=== PATIENT | male | born 1945 | race Hispanic/Latino ===

== ENCOUNTER 2022-05-10 14:40 | Inpatient (IN) | payer OTHER ==
--- OUTSIDE RECORDS SUMMARY | 2022-05-10 14:43 | XMS REPORT | Continuity of Care Document ---
:1945 Author Organization [facility] t Address [address] [place] [address] Dr. Bee[address] [place] [address] Care Team Providers Name Role Phone Thompson Springer MD Primary Care Physician Chepe Gallagher Attending Clinician Unavailable THOMPSON SPRINGER Attending Clinician Unavailable MICHAEL GARG Attending Clinician Unavailable Payers Payer Name Policy Type Policy Number Effective Date Expiration Date S ource Problems Condition Condition Condition Status Onset Resolution Last Treating Co mments Source Name Details Category Date Date Treatment Clinician Date No known No known Disease Metho di active active st problems problems Hospit a l Allergies, Adverse Reactions, Alerts Allergy Allergy Status Severity Reaction(s) Onset Inactive Treating Comm ents Source Name Type Date Date Clinician No Known DA Active [facility] Drug 12-17 Allergie 00:00: s 00 Unable DA Active [facility] to 12-16 Assess 00:00: 00 Social History Social Habit Start Date Stop Date Quantity Comments Source Alcohol intake 2017-01-13 2017-01-13 Current [facility]ist 00:00:00 00:00:00 non-drinker of Hospital alcohol (finding) Sex Ass[birth year] [facility] 00:00:00 00:00:00 Hospital Smoking Status Start Date Stop Date Source Never smoked tobacco [facility] Medications Ordered Filled Start Stop Current Ordering Indication Dosage Frequency Signature Comments Components Source Medication Medication Date Date Medication? Clinician (SIG) Name Name regla, 2017-0 Yes 1{suppo Q.5D Insert 1 M ethodi adult, 7-30 sitory} suppositor st suppository 00:00: y into the Hospita rectal 00 rectum 2 l suppository (two) times a day as needed (constipat ion) for up to 2 doses. Immunizations Ordered Immunization Filled Immunization Date Status Commen ts Source Name Name PFIZER COVID-19 MRNA 2020-09-23 Completed [facility] VACCINATION 00:00:00 Hospital PFIZER COVID-19 MRNA 2020-09-02 Completed Meth odist VACCINATION 00:00:00 Hospital Procedures This patient has no known procedures. Plan of Care Planned Activity Planned Date Details Comments Source Future Scheduled 2022-05-10 COLONOSCOPY SCREENING [facility] Test 14:43:36 [code = COLONOSCOPY SCREENING] Future Scheduled 2022-05-10 SHINGLES VACCINES (1 [facility] Test 14:43:36 of 2) [code = SHINGLES VACCINES (1 of 2)] Future Scheduled 2022-05-10 65+ [facility]OC[facility]CCAL [facility] Test 14:43:36 VACCINE (1 - PCV) [code = 65+ PNEUMOCOCCAL VACCINE (1 - PCV)] Future Scheduled 2022-05-10 COVID-19 VACCINE (3 - [facility] Test 14:43:36 Booster for Pfizer series) [code = COVID-19 VACCINE (3 - Booster for Pfizer series)] Future Scheduled 2022-05-10 INFLUENZA VACCINE [facility] Test 14:43:36 [code = INFLUENZA VACCINE] Future Scheduled 2022-05-10 HEPATITIS B VACCINES [facility] Test 14:43:36 (1 of 3 - 3-dose series) [code = HEPATITIS B VACCINES (1 of 3 - 3-dose series)] Encounters Start End Encounter Admission Attending Care Care Encounter Source Date/Time Date/Time Type Type Clinicians Facility Department ID 2020-12-17 Inpatient [facility] [id number] [facility] 10:20:00 [place] 32 2020-12-17 2020-12-17 Outpatient [facility] [id number] [facility] 08:28:00 08:28:00 32 2020-10-19 2020-10-19 Outpatient MARY SPRINGER [facility] [id number] [facility] 07:59:00 23:59:00 THOMPSON 2020-09-23 2020-09-23 Outpatient EMILYOMER [facility] [id number] [place] 00:00:00 00:00:00 MICHAEL 506 Pr thodi 2020-09-02 2020-09-02 Outpatient [facility] [id number] [address] [place] 00:00:00 00:00:[address] 2019-11-20 2019-11-20 Outpatient SASCHA SPRINGERNW [facility] [id number] [facility] 10:54:00 10:54:00 THOMPSON Results Test Description Test Time Test Comments Results Result Comments Source Glucose Fingerstick 2020-12-17 09:20:00 Test Item Value Reference Range Interpretation Comme nts Glucose Fingerstick (test code = WGLUC) 123 mg/dL 70-115 CYCLE SPECIALIST Narcisa Spangler
[2022-05-10 15:31] LABS: Absolute Lymphocytes (CBC) 1.7 K/uL (0.7-4.9); Hematocrit 37.5 % (39.6-49.0); Lymphocytes % 14.9 % (15.3-44.8); MCV 95.5 fL (80-100); MPV 9.5 fL (7.6-11.3); RBC Red Blood Cell Count 3.92 M/uL (4.33-5.43)
[2022-05-10] MEDS ORDERED: NA CHLORIDE 0.9% 1,000 ML ONE ×2 (15:34→16:03)
[2022-05-10 15:43] LABS: Bilirubin Total 0.5 mg/dL (0.2-1.0); Potassium 6.6 mmol/L (3.5-5.1); Protein, Total 6.8 g/dL (6.4-8.2)
[2022-05-10] MEDS ORDERED: ALBUTEROL 2.5 MG/3 ML NEB SOL ONE (16:02)
[2022-05-10 16:03] LABS: SARS-COV-2 RT PCR NEGATIVE (NEGATIVE)
[2022-05-10] MEDS ORDERED: CALCIUM GLUCONATE 1 GM IVPB 1 GM/50 ML BAG IV ONE (16:03)
[2022-05-10] MEDS ORDERED: INSULIN -REGULAR HUMAN 50 UNIT/0.5 ML ML ONE (16:03)
[2022-05-10] MEDS ORDERED: SOD POLYSTYREN SUL 15 GM/60 ML UCUP ONE (16:03)
[2022-05-10] MEDS ORDERED: SODIUM BICARB 50 MEQ/50ML VIAL ONE (16:03)
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
[2022-05-10] MEDS ORDERED: ACETAMINOPHEN 325 MG TABLET PO PRN (16:34)
[2022-05-10] MEDS ORDERED: HYDROCODONE/APAP 5/325 MG TAB PO PRN (16:35)
[2022-05-10] MEDS ORDERED: ONDANSETRON 4 MG/2 ML VIAL IV PRN (16:37)
[2022-05-10] MEDS ORDERED: NA CHLORIDE 0.9% 1,000 ML IV SCH (17:00)
[2022-05-10] MEDS ORDERED: INSULIN -REGULAR HUMAN 100 UNIT in NA CHLORIDE 0.9% 100 ML IV SCH ×2 (18:00→18:15)
[2022-05-10] MEDS ORDERED: NACHLORIDE 0.45% 1,000 ML IV ONE (18:13)
--- NOTE | 2022-05-10 18:39 | P.HP ---
Certification for Inpatient Patient admitted to: Inpatient With expected LOS: >2 Midnights Patient will require the following post-hospital care: None Practitioner: I am a practitioner with admitting privileges, knowledge of patient current condition, hospital course, and medical plan of care. Services: Services provided to patient in accordance with Admission requirements found in Title 42 Section 412.3 of the Code of Federal Regulations <Keaton Mccracken - Last Filed: 05/10/22 18:27> Patient History Date of Service: 05/10/22 Reason for admission: Hyperglycermia, generalized malaise History of Present Illness: Patient is a 76-year-old male with a past medical history significant for hypertension, hypothyroidism, DM2, obesity who presents with complaint of generalized malaise that has been ongoing for the past 5 days. Patient reported associated signs and symptoms of diarrhea, weakness, fatigue, headache, g eneralized body aches, dizziness, polydipsia, polyuria, nausea, numbness with left leg and back pain. Patient reported that he fell 3 weeks ago and since then has been having back pain. Patient rated pain as 6/10 in severity and described pain as aching in quality. Patient denies any other signs or symptoms. Symptoms are aggravated or relieved by nothing. Patient decided to present to the hospital for medical evaluation. - Past Medical/Surgical History -: HTN -: DM 2 -: Hypothyroidism -: Obesity Past Surgical History: Reviewed- Non-Contributory - Family History Family History: Reviewed- Non-Contributory - Social History Smoking Status: Unknown if ever smoked Alcohol use: No CD- Drugs: No Caffeine use: Yes Place of Residence: Home <Keaton Mccracken - Last Filed: 05/10/22 18:27> Date of Service: 05/10/22 <Fredo Kent - Last Filed: 05/10/22 19:26> Allergies No Known Allergies Allergy (Unverified 05/10/22 16:42) Review of Systems General: Weakness, Malaise, Other (Fatigue, generalized body aches, dizziness) Eyes: Unremarkable ENT: Unremarkable Respiratory: Unremarkable Cardiovascular: Unremarkable Gastrointestinal: Nausea, Diarrhea Genitourinary: Other (polydipsia, polyuria) Musculoskeletal: Back Pain Integumentary: Unremarkable Neurological: Weakness, Numbness, Other (Headache) Lymphatics: Unremarkable <Keaton Mccracken Last Filed: 05/10/22 18:27> Physical Examination - Physical Exam General: Alert, In no apparent distress, Oriented x3, Cooperative HEENT: Atraumatic, PERRLA, Mucous membr. moist/pink, EOMI, Sclerae nonicteric Neck: Supple, 2+ carotid pulse no bruit, No LAD, Without JVD or thyroid abnormality Respiratory: Clear to auscultation bilaterally, Normal air movement Cardiovascular: No edema, Regular rate/rhythm, Normal S1 S2 Capillary refill: <2 Seconds Gastrointestinal: Normal bowel sounds, Non-distended, No tenderness Musculoskeletal: No clubbing, No swelling, No contractures, No tenderness Integumentary: No rashes, No breakdown, No significant lesion, No tenderness/swelling Neurological: Normal gait, Normal speech, Normal strength at 5/5 x4 extr, Normal tone, Normal affect Lymphatics: No axilla or inguinal lymphadenopathy - Studies Laboratory Data (last 24 hrs) 05/10/22 15:10: Sodium 119 L*, Potassium 6.6 H*, BUN 66 H, Creatinine 2.60 H, Glucose 986 H*, Total Bilirubin 0.5, AST 11 L, ALT 27, Alkaline Phosphatase 119 H 05/10/22 15:10: WBC 11.40 H, Hgb 12.0 L, Hct 37.5 L, Plt Count 256 <NinfakearaBebetoeda Scruggs - Last Filed: 05/10/22 18:27> - Studies Laboratory Data (last 24 hrs) 05/10/22 15:10: Sodium 119 L*, Potassium 6.6 H*, BUN 66 H, Creatinine 2.60 H, Glucose 986 H*, Total Bilirubin 0.5, AST 11 L, ALT 27, Alkaline Phosphatase 119 H 05/10/22 15:10: WBC 11.40 H, Hgb 12.0 L, Hct 37.5 L, Plt Count 256 <Fredo Kent - Last Filed: 05/10/22 19:26> Assessment and Plan - Plan --HHNK. Patient started on insulin drip. Patient admitted to ICU. Continue s upportive care. --Hypertension. Stable. Continue home medications. --Hypothyroidism. Continue home medication. --MARY. Nephrology consulted. Continue IV hydration. We will continue to monitor renal functions. Further management per angle dozer operator. --Hyponatremia. Likely secondary to hyperglycemia. We will keep blood sugar levels controlled. Further management per angle dozer operator. --Hyperkalemia. Patient given albuterol\calcium gluconate\insulin\Kayexalate in the ER. [facility] Wellness Coordinator on board. We will continue to monitor potassium levels. -- Class I obesity. Likely secondary to excess calories intake. Patient counseled on weight reduction, diet and exercise therapy. --Diarrhea. Patient reported a one-time episode of diarrhea in the morning. Continue supportive care. --Leukocytosis. Likely reactive. Will reassess levels in a.m. --Anemia of chronic disease. H&H stable. We will continue to monitor hemoglobin and transfuse if less than 7.0. --DVT prophylaxis with heparin subQ. Discharge Plan: Home Plan to discharge in: Greater than 2 days - Advance Directives Does patient have a Living Will: No Does patient have a Durable POA for Healthcare: No - Code Status/Comfort Care Code Status Assessed: Yes Physician Review: Patient Assessed, Agree with Above Assessment and Plan Critical Care: No <Keaton Mccracken - Last Filed: 05/10/22 18:27> Physician Review: Patient Assessed, Agree with Above Assessment and Plan <Fredo Kent - Last Filed: 05/10/22 19:26>
--- NOTE | 2022-05-10 18:41 | P.CNS ---
Date of Consult: 05/10/22 Reason for Consult: Hyperkalemia Requesting Physician: Fredo Kent Chief Complaint: Hyperglycermia History of Present Illness: 76 yo HM DM, HypoTSH presents to the ER with severe, persistent hyperglycemia with associated confusion in the setting of multiple electrolyte abnormalities. The family reports that he stopped taking his medications and then reported not feeling well. The family observed confusion at home that was concerning for the start of dementia. 14:53 This 76 yrs old Male presents to ER via Unassigned with complaints of High jh7 Blood Sugar. 14:53 The patient or guardian reports hyperglycemia, that was potentially precipitated by jh7 illness, not monitoring BG. Onset: The symptoms/episode began/occurred acutely. Associated signs and symptoms: Pertinent positives: diarrhea, malaise. Current symptoms: In the emergency department the patient's symptoms are unchanged from the initial presentation. Patient reports that he has not been feeling well and developed diarrhea today. Reports that he takes metformin and Glyxambi daily. Admits that he has not been checking his blood sugar at home. [facility] who sent him to the ER due to blood glucose reading "high" on their machine.. 14:52 Chief complaint: Patient's son or daughter states: Feeling weak, tired and diarrhea for ll1 4-5 days. 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 Coronavirus screen: Vaccine status: Patient reports receiving the 2nd dose of the covid vaccine. Client indicates they have traveled out of the [place] in the last 14 days. Client traveled to: [place] 2 weeks ago diarrhea, fatigue, Client presents with at least one sign or symptom that may indicate coronavirus-19. Standard/surgical mask placed on the client. Ebola Screen: Patient denies travel to an Ebola-affected area in the 21 days before illness onset. Initial Sepsis Screen: Does the patient meet any 2 criteria? No. Patient's initial sepsis screen is negative. Does the patient have a suspected source of infection? No. Patient's initial sepsis screen is negative. Risk Assessment: Do you want to hurt yourself or someone else? Patient reports no desire to harm self or others. Onset of symptoms was May 06, 2022. Allergies No Known Allergies Allergy (Unverified 05/10/22 16:42) Home medications list reviewed: Yes Home Medications: Empagliflozin/Linagliptin [Glyxambi 10 mg-5 mg Tablet] 1 tab PO BID 05/10/22 Lisinopril/Hydrochlorothiazide [Lisinopril-Hctz 20-25 mg Tab] 1 tab PO BID 05/10/22 - Past Medical/Surgical History Diabetic: Yes -: DM II -: HTN -: Hypothyroidism - Family History son Medical History: Hypertension, Other (see notes) (Obesity) - Social History Alcohol use: No CD- Drugs: No Place of Residence: Home Review of Systems 10-point ROS is otherwise unremarkable General: Weakness, Malaise Neurological: Confusion Physical Examination General: Alert, In no apparent distress, Cooperative HEENT: Atraumatic Neck: Supple Respiratory: Clear to auscultation bilaterally Cardiovascular: No edema, Regular rate/rhythm Gastrointestinal: Soft and benign, Non-distended Musculoskeletal: No clubbing, No contractures Integumentary: No rashes, No cyanosis Neurological: Normal speech Laboratory Data (last 24 hrs) 05/10/22 15:10: Sodium 119 L*, Potassium 6.6 H*, BUN 66 H, Creatinine 2.60 H, Glucose 986 H*, Total Bilirubin 0.5, AST 11 L, ALT 27, Alkaline Phosphatase 119 H 05/10/22 15:10: WBC 11.40 H, Hgb 12.0 L, Hct 37.5 L, Plt Count 256 Imagings Data: [employer] EXAM DESCRIPTION: US - Renal Ultrasound-Complete - 05/10/2022 11:47 pm CLINICAL HISTORY: MARY COMPARISON: No comparisons FINDINGS: Both kidneys are normal in size, shape and echotexture. The right kidney measures 10.3 cm. No hydronephrosis, focal mass or perinephric fluid. The left kidney measures 10 cm. No hydronephrosis, focal mass or perinephric fluid. The urinary bladder is incompletely distended without gross abnormality seen. IMPRESSION: No hydronephrosis bilaterally. No significant abnormality i dentified. Conclusions/Impression: MARY likely due to volume depletion CKD? -No NSAIDs -Continue IVF with 1/2NS -IVF bolus as needed -Renal US reviewed Hyperosmolar Hyponatremia in the setting of hyperglycemia -Correct hyperglycemia Hyperkalemia in the setting of hyperglycemia -Insulin therapy to correct the hyperglycemia DM II with hyperglycemia -Insulin gtt Hypoalbuminemia -Advance nutrition as tolerated -No sugar diet Anemia in chronic illness -Monitor H&H Case reviewed with Dr. Kent Case reviewed with the family in the ICU family room Thank you kindly for the consultation Critical Care: Yes (>30min)
[2022-05-10 19:24] LABS: Urine RBC <5 /HPF (None Seen)
[2022-05-10 19:37] LABS: Magnesium 1.9 mg/dL (1.8-2.4); Potassium 4.7 mmol/L (3.5-5.1)
[2022-05-10 19:58] VITALS: BMI 33.8
[2022-05-10] MEDS: NACHLORIDE 0.45% 1,000 ML IV SCH (20:26)
[2022-05-10] MEDS: ASPIRIN 81 MG CHEWABLE TABLET PO SCH (20:27)
[2022-05-10] MEDS: HEPARIN 5000 UNIT/ML 1 ML VIAL SQ SCH (20:27)
[2022-05-10 20:31] LABS: Phosphorus 3.7 mg/dL (2.5-4.9); Thyroid Stimulating Hormone 0.668 uIU/mL (0.360-3.740)
[2022-05-10 21:08] LABS: Specific Gravity 1.021 (1.005-1.030); Urine Bilirubin NEGATIVE (Negative); Urine Blood Negative (Negative); Urine Clarity Clear (Clear); Urine Color Colorless (Yellow); Urine Glucose 4+ (Over) (Negative); Urine Protein NEGATIVE (Negative); Urine Urobilinogen Normal (Normal)
[2022-05-10 22:28] VITALS: O2SAT 96
--- NOTE | 2022-05-10 23:53 | RAD REPORT ---
EXAM DESCRIPTION: US - Renal Ultrasound-Complete - 05/10/2022 11:47 pm CLINICAL HISTORY: MARY COMPARISON: No comparisons FINDINGS: Both kidneys are normal in size, shape and echotexture. The right kidney measures 10.3 cm. No hydronephrosis, focal mass or perinephric fluid. The left kidney measures 10 cm. No hydronephrosis, focal mass or perinephric fluid. The urinary bladder is incompletely distended without gross abnormality seen. IMPRESSION: No hydronephrosis bilaterally. No significant abnormality identified.
[2022-05-11 05:24] LABS: Absolute Lymphocytes (CBC) 3.5 K/uL (0.7-4.9); Hematocrit 33.2 % (39.6-49.0); MCV 90.2 fL (80-100); MPV 9.5 fL (7.6-11.3); RBC Red Blood Cell Count 3.67 M/uL (4.33-5.43)
[2022-05-11 05:33] LABS: Potassium 3.7 mmol/L (3.5-5.1)
[2022-05-11] MEDS: INSULIN GLARGINE 100 UNIT/ML SQ SCH ×2 (07:30→09:00)
[2022-05-11] MEDS: ASPIRIN 81 MG CHEWABLE TABLET PO SCH (07:31)
[2022-05-11] MEDS: HEPARIN 5000 UNIT/ML 1 ML VIAL SQ SCH ×2 (07:31→21:17)
[2022-05-11] MEDS: NACHLORIDE 0.45% 1,000 ML IV SCH (09:20)
[2022-05-11] MEDS ORDERED: GLUCAGON 1 MG/VIAL IM PRN (10:05)
[2022-05-11] MEDS ORDERED: D10W 250 ML BAG IV PRN (10:15)
[2022-05-11] MEDS: INSULIN -REGULAR HUMAN 50 UNIT/0.5 ML ML SQ SCH ×3 (11:22→21:16)
--- NOTE | 2022-05-11 13:29 | P.PN ---
Subjective Date of Service: 05/11/22 Chief Complaint: Hyperglycermia No acute events overnight. He reports that he feels that his generalized malaise and weakness has improved significantly. His lab studies continue to normalize. He denies chest pain, shortness of breath, or cough. Review of Systems 10-point ROS is otherwise unremarkable General: Weakness (generalized), Malaise Physical Examination - Vital Signs Temperature: 97.6 F Blood Pressure: 109/90 Pulse: 79 Respirations: 15 Pulse Ox (%): 94 - Physical Exam General: Alert, In no apparent distress, Oriented x3 HEENT: Atraumatic, Mucous membr. moist/pink, EOMI, Sclerae nonicteric Neck: Supple, JVD not distended Respiratory: Clear to auscultation bilaterally, Normal air movement Cardiovascular: No edema, Regular rate/rhythm, Normal S1 S2, No gallops, No rubs, No murmurs Gastrointestinal: Normal bowel sounds, Soft and benign, Non-distended, No tenderness, No rebound, No guarding Musculoskeletal: No clubbing Integumentary: No rashes Neurological: Normal speech, Cranial nerves 3-12 intact, Normal affect - Studies Laboratory Data (last 24 hrs) 05/10/22 15:10: Sodium 119 L*, Potassium 6.6 H*, BUN 66 H, Creatinine 2.60 H, Glucose 986 H*, Total Bilirubin 0.5, AST 11 L, ALT 27, Alkaline Phosphatase 119 H 05/10/22 15:10: WBC 11.40 H, Hgb 12.0 L, Hct 37.5 L, Plt Count 256 Assessment And Plan - Plan # Hyperosmolar Hyperglycemic State in Type II Diabetes Mellitus # Hyponatremia due to Hyperglycemia - Was started on insulin drip and IV fluids with normalization of his sodium and glucose levels - Transition from IV to SQ insulin this morning - When his initial sodium level was corrected for his initial glucose level, his sodium value was in the mid-130s - Continue Lactated Ringers' @ 75 mL/hr for today - Downgrade from ICU - Anticipate that he will need insulin at discharge - Serial BMP # Suspect KDIGO Stage II Acute Kidney Injury # Hyperkalemia - Nephrology consulted and spoke with Dr. Singh - recommendations appreciated - Creatinine = 2.60 -> 2.08 -> 1.75 -> 1.35 (baseline creatinine unknown) - Urinalysis = 4+ glucosuria - Renal ultrasound = "no hydronephrosis bilaterally. No significant abnormality identified." - Serial EKG revealed improvement in peaked T-waves - IV fluids as mentioned above - Monitor creatinine and urine output - Renally dose medications # Hypertension - Hold home lisinopril-hydrochlorothiazide given MARY # Hypothyroidism - Resume home levothyroxine once he confirms dosage # Obesity - BMI 33.8 kg/m2 - Lifestyle modifications - Follow-up with PCP Fredo Kent M.D.
[2022-05-11 13:52] LABS: Potassium 4.3 mmol/L (3.5-5.1)
[2022-05-11] MEDS: Ringers Lactate 1,000 ML IV SCH (14:47)
[2022-05-12] MEDS: Ringers Lactate 1,000 ML IV SCH (02:23)
[2022-05-12 05:33] LABS: Potassium 3.9 mmol/L (3.5-5.1)
--- NOTE | 2022-05-12 08:33 | P.DS ---
Admission Date: 05/10/22 Discharge Date: 05/12/22 Disposition: ROUTINE DISCHARGE Reason for Admission: Hyperglycermia Consultations: 1. Nephrology Hospital Course: DIAGNOSES: # Hyperosmolar Hyperglycemic State in Type II Diabetes Mellitus # Hyponatremia due to Hyperglycemia # Suspect KDIGO Stage II Acute Kidney Injury # Hyperkalemia # Hypertension # Hypothyroidism # Obesity - BMI 33.8 kg/m2 HOSPITAL COURSE: Mr. Anam Lucas is a pleasant 76-year-old male with a past medical history significant for type 2 diabetes mellitus, hypertension, and hypothyroidism who was admitted to the [facility] on 05/10/2022 for generalized malaise/weakness. He was admitted to the Medicine service. Upon further evaluation, he was found to have hyperosmolar hyperglycemic state and admitted to the intensive care unit. He was also noted to have a stage II acute kidney injury, hyperkalemia with EKG changes, and hyponatremia due to his significant hyperglycemia. Nephr ology was consulted he was evaluated by Dr. Singh. He was treated with insulin drip and IV fluids with gradual normalization of his lab values. He was downgraded to the Med/Surg floor and did well. He was transitioned to subcutaneous insulin and had complete resolution of his symptoms. Today, he felt that his baseline and was felt that he was ready to be discharged home. However, he would need to be started on insulin given his very poorly controlled diabetes mellitus (hemoglobin A1c 13.0%). He states that he currently does not have a PCP in the area, and Dr. Singh generously agreed to serve as his PCP until he finds one in [place]. I spoke with Dr. Singh and we decided to start him on insulin glargine 5 units, insulin lispro 2 units with meals, linagliptin 5 mg, and metformin 1000 mg. He was provided a diabetic diet education. He was also educated on how to check his glucose and how to administer his insulin. On 05/12/2022, he was seen on morning rounds and deemed medically stable for discharge. He was discharged with instructions to schedule follow-up appointments with his PCP (Dr. Singh). He was provided prescriptions for insulin, diabetic supplies, linagliptin, and metformin. He and his daughter were given the opportunity to ask questions and reported no further questions. Furthermore, all questions were answered to the best of my ability. A copy of this discharge summary will be sent to the above providers to facilitate continuity of care. Today, I personally spent 45 minutes on his case, of which greater than 50% of the time was spent in patient education, counseling, and coordination of care as described above. - Physical Exam General: Alert, In no apparent distress, Oriented x3 HEENT: Atraumatic, Mucous membr. moist/pink, EOMI, Sclerae nonicteric Neck: Supple, JVD not distended Respiratory: Clear to auscultation bilaterally, Normal air movement Cardiovascular: No edema, Regular rate/rhythm, Normal S1 S2, No gallops, No rubs, No murmurs Gastrointestinal: Normal bowel sounds, Soft and benign, Non-distended, No tenderness, No rebound, No guarding Musculoskeletal: No clubbing Integumentary: No rashes Neurological: Normal speech, Cranial nerves 3-12 intact, Normal affect Vital Signs/Physical Exam: Temp Pulse Resp BP Pulse Ox 98.1 F 73 15 108/56 L 95 05/12/22 04:00 05/12/22 04:00 05/12/22 04:00 05/12/22 04:00 05/12/22 04:00 Laboratory Data at Discharge: WBC 11.00 K/uL (4.3-10.9) H 05/11/22 04:39 Hgb 11.5 g/dL (13.6-17.9) L 05/11/22 04:39 Hct 33.2 % (39.6-49.0) L 05/11/22 04:39 Plt Count 235 K/uL (152-406) 05/11/22 04:39 Sodium 137 mmol/L (136-145) 05/12/22 04:31 Potassium 3.9 mmol/L (3.5-5.1) 05/12/22 04:31 BUN 28 mg/dL (7-18) H 05/12/22 04:31 Creatinine 1.04 mg/dL (0.55-1.3) 05/12/22 04:31 Glucose 183 mg/dL (74-106) H 05/12/22 04:31 Phosphorus 3.7 mg/dL (2.5-4.9) 05/10/22 19:03 Magnesium Cancelled 05/11/22 00:00 Total Bilirubin 0.5 mg/dL (0.2-1.0) 05/10/22 15:10 AST 11 U/L (15-37) L 05/10/22 15:10 ALT 27 U/L (12-78) 05/10/22 15:10 Alkaline Phosphatase 119 U/L (45-117) H 05/10/22 15:10 Home Medications: Blood Sugar Diagnostic [Glucose Test Strip] 1 each MC ACHS #120 strip 05/12/22 Insulin Glargine,Hum.rec.anlog [Lantus Solostar] 5 unit SQ DAILY #100 ml 05/12/22 [place], Disposable [Needle] 1 each SQ ACHS #120 strip 05/12/22 RX: Diabetic Supplies,Miscell [Cequr [employer] Copywriter] 1 each 1X #1 box 05/12/22 RX: Insulin Lispro 2 unit SQ AC #100 ml 05/12/22 RX: Linagliptin [Tradjenta] 5 mg PO DAILY #30 tab 05/12/22 RX: Metformin HCl 1,000 mg PO BID #60 tab 05/12/22 New Medications: RX: Diabetic Supplies,Miscell [Cequr [employer] Copywriter] 1 each MC 1X #1 box Blood Sugar Diagnostic [Glucose Test Strip] 1 each MC ACHS #120 strip RX: Insulin Lispro 2 unit SQ AC #100 ml Insulin Glargine,Hum.rec.anlog [Lantus Solostar] 5 unit SQ DAILY #100 ml RX: Metformin HCl 1,000 mg PO BID #60 tab [place], Disposable [Needle] 1 each SQ ACHS #120 strip RX: Linagliptin [Tradjenta] 5 mg PO DAILY #30 tab Physician Discharge Instructions: 1. Please call and schedule a follow-up appointment with your PCP (Dr. Singh) in 3-5 days - Please maintain your sugar log in a journal as we discussed - You will need to schedule a yearly dilated eye exam and a urine test to monitor for diabetic eye and kidney disease Diet: ADA Activity: Ad rita Followup: Lei Singh DO [ACTIVE - CAN ADMIT] - Time spent managing pt's care (in minutes): 45
[2022-05-12] MEDS: HEPARIN 5000 UNIT/ML 1 ML VIAL SQ SCH (08:51)
[2022-05-12] MEDS: ASPIRIN 81 MG CHEWABLE TABLET PO SCH (08:51)
[2022-05-12] MEDS: INSULIN -REGULAR HUMAN 50 UNIT/0.5 ML ML SQ SCH (08:56)
[2022-05-12] MEDS: INSULIN GLARGINE 100 UNIT/ML SQ SCH (09:00)
[2022-05-12] MEDS ORDERED: POTASSIUM CL SA 10 MEQ TAB PO ONE (09:00)
[2022-05-12 09:15] VITALS: BP 128/74; TEMP 98
--- NOTE | 2022-05-12 16:34 | EKG ---
Test Date: 2022-05-10 Test Time: 15:11:02 Press Smith Helper: LINDA MEASUREMENT RESULTS: Intervals: Rate: 71 ME: 202 QRSD: 96 QT: 370 QTc: 402 [place]: P: 55 ME: 202 QRS: 23 T: 41 INTERPRETIVE STATEMENTS: Normal sinus rhythm Inferior infarct, age undetermined Abnormal ECG No previous ECG available for comparison Electronically Signed On 05-12-22 16:33:38 CATTLE FARMER by Chris Stern
--- NOTE | 2022-05-15 13:00 | EKG ---
Test Date: 2022-05-10 Test Time: 20:01:47 Philosophy Professor: Flavia GAUTHIER MEASUREMENT RESULTS: Intervals: Rate: 76 [place]: 202 QRSD: 92 QT: 366 QTc: 411 [place]: P: 39 [place]: 202 QRS: 4 T: 18 INTERPRETIVE STATEMENTS: Normal sinus rhythm Inferior infarct, age undetermined Abnormal ECG Compared to ECG 05/10/2022 15:11:02 No significant changes Electronically Signed On 05-15-22 12:53:32 MENSWEAR SALESPERSON by Chris Stern
== END 2022-05-12 10:53 | disposition home or self-care (01) | DRG 638 ==
LOC: ER 14:40 → ERHOLD 16:35 → 3RD-ICU 18:24 → 2ND 05-11 14:42
PROVIDERS: ADMIT Internal Medicine; ATTEND Internal Medicine
DX: E11.00 Type 2 diabetes mellitus with hyperosmolarity without nonketotic hyperglycemic-hyperosmolar coma (NKHHC) (principal); E87.1 Hypo-osmolality and hyponatremia; N17.9 Acute kidney failure, unspecified; E03.9 Hypothyroidism, unspecified; E87.5 Hyperkalemia; D63.8 Anemia in other chronic diseases classified elsewhere; I10 Essential (primary) hypertension; E88.09 Other disorders of plasma-protein metabolism, not elsewhere classified; E66.09 Other obesity due to excess calories; F03.90 Unspecified dementia, unspecified severity, without behavioral disturbance, psychotic disturbance, mood disturbance, and anxiety; D72.829 Elevated white blood cell count, unspecified; R19.7 Diarrhea, unspecified; Z79.4 Long term (current) use of insulin; Z68.33 Body mass index [BMI] 33.0-33.9, adult; Z79.84 Long term (current) use of oral hypoglycemic drugs; Z90.49 Acquired absence of other specified parts of digestive tract; Z91.199 Patient's noncompliance with other medical treatment and regimen due to unspecified reason; Z79.890 Hormone replacement therapy; Z79.899 Other long term (current) drug therapy; Z20.822 Contact with and (suspected) exposure to COVID-19
CPT/HCPCS: 0240U; 36415; 76770; 80048; 80053; 81003; 81015; 82010; 82947; 83036; 83735; 83880; 84100; 84439; 84443; 84484; 85025; 93005; 96361; 96365; 96375; 99285; J0610; J1644; J1815; J7030; J7120; J7613

== ENCOUNTER 2022-07-14 11:49 | Emergency (ER) | payer OTHER ==
--- OUTSIDE RECORDS SUMMARY | 2022-07-14 11:52 | XMS REPORT | Continuity of Care Document ---
:1945 Author Organization [facility] t Address [address] [place] [address] Dr. Bee[address] [place] [address] Care Team Providers Name Role Phone Thompson [...] Comments Source Alcohol intake 2017-01-13 2017-01-13 Current [facility] 00:00:00 00:00:00 non-drinker of Hospital alcohol (finding) Sex Ass[birth year] At [birth year] [facility] 00:[facility]00 [facility] Smoking Status Start Date Stop Date Source Never smoked tobacco [facility] Medications Ordered Filled Start Stop Current Ordering Indication Dosage Frequency Signature Comments Components Source Medication Medication Date Date Medication? Clinician (SIG) Name Name regla, Yes 1{suppo Q.5D Insert 1 M ethodi adult, 7-30 sitory} suppositor st suppository 00:00: y into the [facility]osp[facility] rectal 00 rectum 2 l suppository (two) times a day as needed (constipat ion) for up to 2 doses. glycerin, Yes 1{suppo Q.5D Insert 1 M ethodi adult, 7-30 sitory} suppositor st suppository 00:00: y into the Hospita rectal 00 rectum 2 l suppository (two) times a day as needed (constipat ion) for up to 2 doses. Immunizations Ordered Immunization Filled Immunization Date Status Commen ts Source Name Name PFIZER COVID-19 MRNA 2020-09-23 Completed [facility] VACCINATION 00:00:00 Hospital PFIZER COVID-19 MRNA 2020-09-23 Completed [facility] VACCINATION 00:00:00 Hospital PFIZER COVID-19 MRNA 2020-09-02 Completed Meth odist VACCINATION 00:00:00 Hospital PFIZER COVID-19 MRNA 2020-09-02 Completed Meth odist VACCINATION 00:00:00 Hospital Procedures This patient has no known procedures. Plan of Care Planned Activity Planned Date Details Comments Source Future Scheduled 2022-06-03 SHINGLES VACCINES (1 Met [facility] Test 05:09:49 of 2) [code = SHINGLES VACCINES (1 of 2)] Future Scheduled 2022-06-03 65+ [facility]AL [email or web address] Test 05:09:49 VACCINE (1 - PCV) [code = 65+ PNEUMOCOCCAL VACCINE (1 - PCV)] Future Scheduled 2022-06-03 COVID-19 VACCINE (3 - [facility] Test 05:09:49 Booster for Pfizer series) [code = COVID-19 VACCINE (3 - Booster for Pfizer series)] Future Scheduled 2022-06-03 INFLUENZA VACCINE [email or web address] Test 05:09:49 [code = INFLUENZA VACCINE] Future Scheduled 2022-06-03 COLONOSCOPY SCREENING [facility] Test 05:09:49 [code = COLONOSCOPY SCREENING] Future Scheduled 2022-05-10 HEPATITIS B VACCINES Met [facility] Test 14:43:36 (1 of 3 - 3-dose series) [code = HEPATITIS B VACCINES (1 of 3 - 3-dose series)] Future Scheduled 2022-05-10 COLONOSCOPY SCREENING [facility] Test 14:43:36 [code = COLONOSCOPY SCREENING] Future Scheduled 2022-05-10 SHINGLES VACCINES (1 Met [facility] Test 14:43:36 of 2) [code = SHINGLES VACCINES (1 of 2)] Future Scheduled 2022-05-10 65+ [facility] 14:43:36 VACCINE (1 - PCV) [code = 65+ PNEUMOCOCCAL VACCINE (1 - PCV)] Future Scheduled 2022-05-10 COVID-19 VACCINE (3 - [facility] Test 14:43:36 Booster for Pfizer series) [code = COVID-19 VACCINE (3 - Booster for Pfizer series)] Future Scheduled 2022-05-10 INFLUENZA VACCINE Method [facility] Test 14:43:36 [code = INFLUENZA VACCINE] Encounters Start End Encounter Admission Attending Care Care Encounter Source Date/Time Date/Time Type Type Clinicians Facility Department ID 2020-12-17 Inpatient Elliott [facility] [id number] [facility] 10:20:00 Chepe 32 2020-12-17 2020-12-17 Outpatient [facility] [id number] [facility] 08:28:00 08:28:00 32 2020-10-19 2020-10-19 Outpatient MARY SPR[facility] [id number] [facility] 07:59:00 23:59:00 THOMPSON 2020-09-23 2020-09-23 Outpatient BRITANY [facility] [id number] [place] 00:00:00 00:00:00 ARLEYOPHER [facility] 2020-09-02 2020-09-02 Outpatient [facility] [id number] [place] 00:00:00 00:00:[address] 2019-11-20 2019-11-20 Outpatient MARY SPRINGER [facility] [id number] [facility] 10:54:00 10:54:00 THOMPSON Results Test Description Test Time Test Comments Results Result Comments Source Glucose Fingerstick 2020-12-17 09:20:00 Test Item Value Reference Range Interpretation Comme nts Glucose Fingerstick (test code = WGLUC) 123 mg/dL 70-115 [employer]TLE LO[employer] Narcisa Spangler
[2022-07-14] MEDS ORDERED: HYDROCODONE/APAP 10/325 TAB ONE (12:24)
[2022-07-14 12:55] LABS: Absolute Lymphocytes (CBC) 2.5 K/uL (0.7-4.9); Hematocrit 31.2 % (39.6-49.0); Lymphocytes % 28.8 % (15.3-44.8); MCV 91.8 fL (80-100); MPV 8.3 fL (7.6-11.3)
[2022-07-14 12:57] LABS: Albumin 3.6 g/dL (3.4-5.0); Bilirubin Total 0.7 mg/dL (0.2-1.0); Potassium 4.2 mmol/L (3.5-5.1); Protein, Total 7.4 g/dL (6.4-8.2)
--- NOTE | 2022-07-14 13:31 | RAD REPORT ---
EXAM DESCRIPTION: CTAngio Aorta For Dissection - 07/14/2022 1:18 pm CLINICAL HISTORY: back pain COMPARISON: No comparisons TECHNIQUE: CTA of the chest, abdomen, and pelvis was performed. MIPs were performed. All CT scans are performed using dose optimization technique as appropriate and may include automated exposure control or mA/KV adjustment according to patient size. FINDINGS: Thorax: Chest Wall: No abnormal mass Lungs: No acute abnormality. Pleura: No effusions or pneumothorax. Gwen/Mediastinum: No lymphadenopathy. Small hiatal hernia. Aorta/Pulmonary Arteries: Unremarkable Heart: Normal size. Abdomen/Pelvis: Liver: No acute abnormality or suspicious lesions. Hepatic steatosis Biliary: No biliary ductal dilatation. Cholecystectomy Stomach: No significant focal abnormality. Duodenum: No significant focal abnormality. Pancreas: Pancreatic atrophy. Spleen: No significant abnormality. Adrenal: No suspicious lesions. Kidney/ureter: No hydronephrosis. No renal calculi. Retroperitoneum: No retroperitoneal adenopathy. Vascular: No aneurysm. Bowel: Diffuse colonic wall thickening.. Peritoneum: No ascites or free air. Bladder: Grossly unremarkable. Reproductive: Prostatomegaly. Bones: No acute fracture. Other: n/a IMPRESSION: No acute findings within the chest, abdomen, or pelvis. Specifically, no aortic aneurysm , aortic dissection, or pulmonary embolus identified. Mild diffuse colonic wall thickening could reflect a colitis.
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
[2022-07-14 14:25] VITALS: TEMP 98.6
[2022-07-14 14:36] VITALS: BP 127/62; O2SAT 99
== END 2022-07-14 14:13 | disposition home or self-care (01) ==
LOC: ER 11:49
DX: M54.50 Low back pain, unspecified (principal); I10 Essential (primary) hypertension
CPT/HCPCS: 85025; 36415; 80053; 71275; 74175; 99284; Q9967

== ENCOUNTER 2022-10-25 15:09 | Inpatient (IN) | payer OTHER ==
--- OUTSIDE RECORDS SUMMARY | 2022-10-25 15:27 | XMS REPORT | Continuity of Care Document ---
:1945 Author Organization [facility] t Address [address] [place] [address]. [address] [place] [address] Care Team Providers Name Role Phone No, Pcp [facility] Primary Care Physician Unavailable Chepe Gallagher Attending Clinician Unavailable [facility] RENNER Meng Attending Clinician Quintin Rausch MD Attending Clinician Primo Briscoe MD Attending Clinician Emily LEG MAN, Nilson Whitten Attending Clinician [phone] Attending Clinician Unavailable LALIT HILL Attending Clinician Unavailable ANGELIQUE SPRINGER Attending Clinician Unavailable MICHAEL GARG Attending Clinician Unavailable PRIMO BRISCOE Admitting Clinician Unavailable Payers Payer Name Policy Type Policy Number Effective Date Expiration Date S ource Problems Condition Condition Condition Status Onset Resolution Last Treating Co mments Source Name Details Category Date Date Treatment Clinician Date Lumbar Lumbar Disease Active Method[facility] radiculopa radiculopa -[facility]: [facility]osp[facility] 00 l No known No known Disease Metho di active active st problems problems Hospit a l Allergies, Adverse Reactions, Alerts Allergy Allergy Status Severity Reaction(s) Onset Inactive Treating Comm ents Source Name Type Date Date Clinician No Known DA Active U [facility] 12-17 Allergie 00:00: s 00 Unable DA Active U [facility] to 12-16 Assess 00:00: 00 NO KNOWN Allergy Active [facility] Social History Social Habit Start Date Stop Date Quantity Comments Source Gender [facility] Sexual [facility] History of Social 2022-10-03 2022-10-[address] function 00:00:00 00:00:00 Hospital Alcohol intake 2022-09-25 2022-09-25 Current [facility] 00:00:00 00:00:00 non-drinker of Hospital alcohol (finding) Tobacco use and 2022-09-16 2022-09-[address] [facility] exposure 00:00:00 00:00:00 tobacco non-user [facility] Sex Assigned At [birth year] [facility] 00:00:00 00:00:00 [facility] Smoking Status Start Date Stop Date Source Never smoked tobacco [facility] Medications Ordered Filled Start Stop Current Ordering Indication Dosage Frequency Signature Comments Components Source Medication Medication Date Date Medication? Clinician (SIG) Name Name methocarbam 2022- Yes 500mg Q6H Take 1 Me thodi oL 4-25 07-[address] (ROBAXIN) 00:00: 04:59 (500 mg [facility]osp [facility] 500 MG 00 :00 total) by l tablet mouth every 6 (six) hours as needed for muscle spasms for up to 90 days. methocarbam 2022- Yes 500mg Q6H Take 1 Me thodi oL 4-25 07-[address] (ROBAXIN) 00:00: 04:59 (500 mg [facility] 500 MG 00 :00 total) by l tablet mouth every 6 (six) hours as needed for muscle spasms for up to 90 days. methocarbam 2022- Yes 500mg Q6H Take 1 Me thodi oL 4-25 07-[address] (ROBAXIN) 00:00: 04:59 (500 mg [facility] 500 MG 00 :00 total) by l tablet mouth every 6 (six) hours as needed for muscle spasms for up to 90 days. traMADoL 3-0 2022- Yes [id number] 50mg Q6H Take 1 Metho di (ULTRAM) 50 4-25 05-06 tablet (50 s t mg tablet 00:00: 04:59 mg total) Ho spita 00 :00 by mouth l every 6 (six) hours as needed for moderate pain for up to 10 days .acute pain. traMADoL 2022-0 2022- [place] [id number] 50mg Q6H Take 1 Metho di (ULTRAM) 50 4-25 05-06 tablet (50 s t mg tablet 00:00: 04:59 mg total) Ho spita 00 :00 by mouth l every 6 (six) hours as needed for moderate pain for up to 10 days .acute pain. traMADoL 2022-0 2022- No [id number] 50mg Q6H Take 1 Metho di (ULTRAM) 50 4-25 05-06 tablet (50 s t mg tablet 00:00: 04:59 mg total) Ho spita 00 :00 by mouth l every 6 (six) hours as needed for moderate pain for up to 10 days .acute pain. lisinopriL 2023-0 Yes 20mg QD Take 1 Metho di (PRINIVIL) 4-12 tablet (20 st 20 mg 13:54: mg total) Hospita tablet 01 by mouth l daily. metFORMIN 2023-0 Yes 1000mg Q.5D Take 1 Meth efe (GLUCOPHAGE 4-[address] ) 1,000 mg 13:54: (1,000 mg Ho spita tablet 01 total) by l mouth 2 (two) times a day with meals. linaGLIPtin 2023-0 Yes 5mg QD Take 1 Meth efe (TRADJENTA) 4-12 tablet (5 st 5 mg tablet 13:54: mg total) H ospita 01 by mouth l daily with breakfast. levothyroxi 2023-0 Yes 100ug QD Take 1 Met hodi ne 4-[address] (SYNTHROID) 13:54: (100 mcg Ho spita 100 mcg 01 total) by l tablet mouth daily. lisinopriL 2023-0 Yes 20mg QD Take 1 Metho di (PRINIVIL) 4-12 tablet (20 st 20 mg 13:54: mg total) Hospita tablet 01 by mouth l daily. metFORMIN 2023-0 Yes 1000mg Q.5D Take 1 Meth efe (GLUCOPHAGE 4-[address] ) 1,000 mg 13:54: (1,000 mg Ho spita tablet 01 total) by l mouth 2 (two) times a day with meals. linaGLIPtin 2023-0 Yes 5mg QD Take 1 Meth efe (TRADJENTA) 4-12 tablet (5 st 5 mg tablet 13:54: mg total) H ospita 01 by mouth l daily with breakfast. levothyroxi 2023-0 Yes 100ug QD Take 1 Met hodi ne 4-[address] (SYNTHROID) 13:54: (100 mcg Ho spita 100 mcg 01 total) by l tablet mouth daily. lisinopriL 2023-0 Yes 20mg QD Take 1 Metho di (PRINIVIL) 4-12 tablet (20 st 20 mg 13:54: mg total) Hospita tablet 01 by mouth l daily. metFORMIN 2023-0 Yes 1000mg Q.5D Take 1 Meth efe (GLUCOPHAGE 4-[address] ) 1,000 mg 13:54: (1,000 mg Ho spita tablet 01 total) by l mouth 2 (two) times a day with meals. linaGLIPtin 2023-0 Yes 5mg QD Take 1 Meth efe (TRADJENTA) 4-12 tablet (5 st 5 mg tablet 13:54: mg total) H ospita 01 by mouth l daily with breakfast. levothyroxi 2023-0 Yes 100ug QD Take 1 Met hodi ne 4-[address] (SYNTHROID) 13:54: (100 mcg Ho spita 100 mcg 01 total) by l tablet mouth daily. polyethylen 2023-0 2023- Yes 17g QD Take 17 g Methodi e glycol 4-12 05-[address] (MIRALAX) 00:00: 04:59 daily for Ho spita 17 gram 00 :00 30 days. l packet polyethylen 2023-0 2023- Yes 17g QD Take 17 g Methodi e glycol 4-12 05-[address] (MIRALAX) 00:00: 04:59 daily for Ho spita 17 gram 00 :00 30 days. l packet polyethylen 2023-0 2023- Yes 17g QD Take 17 g Methodi e glycol 4-12 05-[address] (MIRALAX) 00:00: 04:59 daily for Ho spita 17 gram 00 :00 30 days. l packet gabapentin 2022- Yes [id number] 300mg Q.[id number] Take 1 Methodi (NEURONTIN) 09-[id number] 300 mg 00:00: 04:59 3D (300 mg Hospita capsule 00 :00 total) by l mouth 3 (three) times a day for 30 days. gabapentin 2022- Yes [id number] 300mg Q.[id number] Take 1 Methodi (NEURONTIN) 09-[id number] 300 mg 00:00: 04:59 3D (300 mg Hospita capsule 00 :00 total) by l mouth 3 (three) times a day for 30 days. gabapentin 2022- Yes [id number] 300mg Q.[id number] Take 1 Methodi (NEURONTIN) 09-[id number] 300 mg 00:00: 04:59 3D (300 mg Hospita capsule 00 :00 total) by l mouth 3 (three) times a day for 30 days. methocarbam 2022- No [id number] 500mg Q.[id number] Take 1 Methodi oL 09-[id number] (ROBAXIN) 00:00: 04:59 3D (500 mg [facility]osp [facility] 500 MG 00 :00 total) by l tablet mouth 3 (three) times a day as needed for muscle spasms for up to 10 days. methocarbam 2022- No [id number] 500mg Q.[id number] Take 1 Methodi oL 09-[id number] (ROBAXIN) 00:00: 04:59 3D (500 mg [facility] 500 MG 00 :00 total) by l tablet mouth 3 (three) times a day as needed for muscle spasms for up to 10 days. methocarbam 2022- No [id number] 500mg Q.[id number] Take 1 Methodi oL 09-[id number] (ROBAXIN) 00:00: 04:59 3D (500 mg [facility] 500 MG 00 :00 total) by l tablet mouth 3 (three) times a day as needed for muscle spasms for up [place] 10 [place] [id number] 1{tbl} Q6H Take 1 Methodi en-codeine 09-[address] (TYLENOL 00:00: 04:59 mouth Hospita WITH 00 :00 every 6 l CODEINE #3) (six) 300-30 mg hours as per tablet needed for severe pain for up to 5 days .acute pain. methylPREDN 2022- No follow Met hodi ISolone 09-[address] (Medrol, 00:00: 04:59 directions Ho spita Conor,) 4 mg 00 :00 [place] [id number] 1{tbl} Q6H Take 1 Methodi en-codeine 09-[address] (TYLENOL 00:00: 04:59 mouth Hospita WITH 00 :00 every 6 l CODEINE #3) (six) 300-30 mg hours as per tablet needed for severe pain for up to 5 days .acute pain. methylPREDN 2022-0 2022- No follow Met hodi ISolone 09-[address] (Medrol, 00:00: 04:59 directions Ho spita Conor,) 4 mg 00 :00 l tablet acetaminoph 2022- No [id number] 1{tbl} Q6H Take 1 Methodi en-codeine 09-[address] (TYLENOL 00:00: 04:59 mouth Hospita WITH 00 :00 every 6 l CODEINE #3) (six) 300-30 mg hours as per tablet needed for severe pain for up to 5 days .acute pain. methylPREDN 2022- No follow Met hodi ISolone 09-[address] (Medrol, 00:00: 04:59 directions Ho spita Conor,) 4 mg 00 :00 l tablet acetaminoph 2022-[address] [facility]ine [facility] (TYLENOL 17:21: mg-codeine Med ical #3) 300-30 52 30 mg Center mg per tablet tablet tiZANidine 2023-0 Yes [address]izanidine [facility] (ZANAFLEX) 4-01 2 mg [facility] 2 MG tablet 17:21: tablet [address] acetaminoph [address] [facility] en-codeine 4-01 [facility] (TYLENOL 17:21: mg-codeine Med ical #3) 300-30 52 30 mg Center mg per tablet tablet tiZANidine 0 Yes tizanidine [facility] (ZANAFLEX) 4-01 2 mg [facility] 2 MG tablet 17:21: tablet [address] acetaminoph [address] [facility] en-codeine 4- hen [facility] (TYLENOL 17:21: mg-codeine Med ical #3) 300-30 52 30 mg Center mg per tablet tablet tiZANidine Yes tizanidine [facility] (ZANAFLEX) 4-01 2 mg [facility] 2 MG tablet 17:21: tablet [address] acetaminoph [address] [facility] en-codeine 4- hen [facility] (TYLENOL 17:21: mg-codeine Med ical #3) 300-30 52 30 mg Center mg per tablet tablet tiZANidine Yes tizanidine [facility] (ZANAFLEX) 4- 2 mg [facility] 2 MG tablet 17:21: tablet [address] lisinopril- 2022- No lisinopril [facility] hydroCHLORO 09-16 20 [facility] thiazide 17:21: 00:00 mg-hydroch Me dical (PRINZIDE,Z 52 :00 lorothiazi Ce nter ESTORETIC) de 25 mg 20-25 mg tablet per tablet TAKE 2 TABLETS BY MOUTH DAILY lisinopril- 2022- No lisinopril [facility] hydroCHLORO 09-16 20 [facility] thiazide 17:21: 00:00 mg-hydroch Me dical (PRINZIDE,Z 52 :00 lorothiazi Ce nter ESTORETIC) de 25 mg 20-25 mg tablet per tablet TAKE 2 TABLETS BY MOUTH DAILY lisinopril- 2022- No lisinopril [facility] hydroCHLORO 09-16 20 [facility] thiazide 17:21: 00:00 mg-hydroch Me dical (PRINZIDE,Z 52 :00 lorothiazi Ce nter ESTORETIC) de 25 mg 20-25 mg tablet per tablet TAKE 2 TABLETS BY MOUTH DAILY lisinopril- 2022- No lisinopril [facility] hydroCHLORO 09-16-01 20 [facility] thiazide 17:21: 00:00 mg-hydroch Me dical (PRINZIDE,Z 52 :00 lorothiazi Ce nter ESTORETIC) de 25 mg 20-25 mg tablet per tablet TAKE 2 TABLETS BY MOUTH DAILY furosemide 2022- No 20mg QD Take [address] (LASIX) 20 09-16 04-16 tablet (20 Mallika kes MG tablet 00:00: 23:59 mg total) Me dical 00 :00 by mouth Center in the morning for 15 days. furosemide 2022- Yes 20mg QD Take [address] (LASIX) 20 09-16 04-16 tablet (20 Mallika kes MG tablet 00:00: 23:59 mg total) Me dical 00 :00 by mouth Center in the morning for 15 days. furosemide 2022- No 20mg QD Take [address] (LASIX) 20 09-16 04-16 tablet (20 Mallika kes MG tablet 00:00: 23:59 mg total) Me dical 00 :00 by mouth Center in the morning for 15 days. furosemide 2022- No 20mg QD Take [address] (LASIX) 20 09-16 04-16 tablet (20 Mallika kes MG tablet 00:00: 23:59 mg total) Me dical 00 :00 by mouth Center in the morning for 15 days. metFORMIN Yes 1000mg Q.5D Take [address] (GLUCOPHAGE 3-16 tablet [facility] ) 1000 MG 00:00: (1,000 mg Med ical tablet 00 total) by Center mouth in the morning and 1 tablet (1,000 mg total) before bedtime. lisinopriL Yes 20mg QD Take 1 [facility] (PRINIVIL,Z 3-16 tablet (20 Mallika kes ESTRIL) 20 00:00: mg total) Me dical MG tablet 00 by mouth Center in the morning. glipiZIDE 2023-0 Yes 5mg Q.5D Take [address] (GLUCOTROL) 3-16 tablet (5 Ceasar es 5 MG tablet 00:00: mg total) M edical 00 by mouth Center in the morning and 1 tablet (5 mg total) before bedtime. metFORMIN 2023-0 Yes 1000mg Q.5D Take [address] (GLUCOPHAGE 3-16 tablet [facility] ) 1000 MG 00:00: (1,000 mg Med ical tablet 00 total) by Center mouth in the morning and 1 tablet (1,000 mg total) before bedtime. lisinopriL 2023-0 Yes 20mg QD Take 1 [facility] (PRINIVIL,Z 3-16 tablet (20 Mallika kes ESTRIL) 20 00:00: mg total) Me dical MG tablet 00 by mouth Center in the morning. glipiZIDE 2023-0 Yes 5mg Q.5D Take [address] (GLUCOTROL) 3-16 tablet (5 Ceasar es 5 MG tablet 00:00: mg total) M edical 00 by mouth Center in the morning and 1 tablet (5 mg total) before bedtime. metFORMIN 2023-0 Yes 1000mg Q.5D Take [address] (GLUCOPHAGE 3-16 tablet [facility] ) 1000 MG 00:00: (1,000 mg Med ical tablet 00 total) by Center mouth in the morning and 1 tablet (1,000 mg total) before bedtime. lisinopriL 2023-0 Yes 20mg QD Take 1 [facility] (PRINIVIL,Z 3-16 tablet (20 Mallika kes ESTRIL) 20 00:00: mg total) Me dical MG tablet 00 by mouth Center in the morning. glipiZIDE 2023-0 Yes 5mg Q.5D Take [address] (GLUCOTROL) 3-16 tablet (5 Ceasar es 5 MG tablet 00:00: mg total) M edical 00 by mouth Center in the morning and 1 tablet (5 mg total) before bedtime. metFORMIN 2023-0 Yes 1000mg Q.5D Take [address] (GLUCOPHAGE 3-16 tablet [facility] ) 1000 MG 00:00: (1,000 mg Med ical tablet 00 total) by Center mouth in the morning and 1 tablet (1,000 mg total) before bedtime. lisinopriL 2023-0 Yes 20mg QD Take 1 [facility] (PRINIVIL,Z 3-16 tablet (20 Mallika kes ESTRIL) 20 00:00: mg total) Me dical MG tablet 00 by mouth Center in the morning. glipiZIDE 3-0 Yes 5mg Q.5D Take [address] (GLUCOTROL) 3-16 tablet (5 Ceasar es 5 MG tablet 00:00: mg total) M edical 00 by mouth Center in the morning and 1 tablet (5 mg total) before bedtime. levothyroxi 2023-0 Yes 100ug QD Take [address] ne 3-15 tablet [facility] (SYNTHROID, 00:00: (100 mcg Me dical LEVOTHROID) 00 total) by [address] [facility] 100 MCG mouth tablet every morning. levothyroxi 2023-0 Yes 100ug QD Take [address] ne 3-15 tablet [facility] (SYNTHROID, 00:00: (100 mcg Me dical LEVOTHROID) 00 total) by [address] ter 100 MCG mouth tablet every morning. levothyroxi 3-0 Yes 100ug QD Take [address] ne 3-15 tablet [facility] (SYNTHROID, 00:00: (100 mcg Me dical LEVOTHROID) 00 total) by [address] ter 100 MCG mouth tablet every morning. levothyroxi 2023-0 Yes 100ug QD Take [address] ne 3-15 tablet [facility] (SYNTHROID, 00:00: (100 mcg Me dical LEVOTHROID) 00 total) by [address] ter 100 MCG mouth tablet every morning. glycerin, Yes 1{suppo Q.5D Insert 1 M [...] MRNA 2020-09-23 Completed Meth odist VACCINATION 00:00:00 [facility] PFIZER COVID-19 MRNA 2020-09-23 Completed Meth odist VACCINATION 00:00:00 [facility] PFIZER COVID-19 MRNA 2020-09-23 Completed Meth odist VACCINATION 00:00:00 [facility] PFIZER COVID-19 MRNA 2020-09-23 Completed Meth odist VACCINATION 00:00:00 [facility] PFIZER COVID-19 MRNA 2020-09-23 Completed Meth odist VACCINATION 00:00:00 [facility] PFIZER COVID-19 MRNA 2020-09-23 Completed Meth odist VACCINATION 00:00:00 [facility] PFIZER COVID-19 MRNA 2020-09-02 Completed Meth odist VACCINATION 00:00:00 [facility] PFIZER COVID-19 MRNA 2020-09-02 Completed Meth odist VACCINATION 00:00:00 [facility] PFIZER COVID-19 MRNA 2020-09-02 Completed Meth odist VACCINATION 00:00:00 [facility] PFIZER COVID-19 MRNA 2020-09-02 Completed Meth odist VACCINATION 00:00:00 [facility] PFIZER COVID-19 MRNA 2020-09-02 Completed Meth odist VACCINATION 00:00:00 [facility] PFIZER COVID-19 MRNA 2020-09-02 Completed Meth odist VACCINATION 00:00:00 Hospital Vital Signs Vital Name Observation Time Observation Value Comments Source WEIGHT 2022-09-16 12:45:00 95.709 kg HEIGHT 2022-09-16 12:45:00 170.2 cm WEIGHT 2022-09-16 12:45:00 95.709 kg HEIGHT 2022-09-16 12:45:00 170.2 cm WEIGHT 2022-09-16 12:45:00 95.709 kg HEIGHT 2022-09-16 12:45:00 170.2 cm Systolic blood 2022-09-26 16:49:49 152 mm[Hg] [facility] pressure Diastolic blood 2022-09-26 16:49:49 68 mm[Hg] [facility] pressure Heart rate 2022-09-26 16:49:49 65 /min [facility] Body temperature 2022-09-26 16:49:49 36.22 Deepthi [facility] Respiratory rate 2022-09-26 16:49:49 16 /min [facility] Oxygen saturation in 2022-09-26 16:49:49 98 /min [facility] Arterial blood by Pulse oximetry Body height 2022-09-25 13:47:00 170.2 cm [facility] Body weight 2022-09-25 13:47:00 95.255 kg [facility] BMI 2022-09-25 13:47:00 32.89 kg/m2 [facility] Systolic blood 2022-09-16 17:20:00 171 mm[Hg] [facility] Diastolic blood 2022-09-16 17:20:00 79 mm[Hg] [facility] Heart rate 2022-09-16 17:20:00 67 /min [facility] Respiratory rate 2022-09-16 17:20:00 18 /min [facility] Oxygen saturation in 2022-09-16 17:20:00 99 /min [facility] Arterial blood by Medical Ce nter Pulse oximetry Body height 2022-09-16 12:45:00 170.2 cm [facility] Body weight 2022-09-16 12:45:00 95.709 kg [facility] BMI 2022-09-16 12:45:00 33.05 kg/m2 [facility] Body temperature 2022-09-16 12:45:00 36.89 Deepthi [facility] Procedures Procedure Date / Time Performing Clinician Source Performed POC GLUCOSE 2022-09-26 16:50:00 Primo Briscoe [facility] POC GLUCOSE 2022-09-26 12:43:00 Primo Briscoe [facility] BASIC METABOLIC PANEL 2022-09-26 09:47:00 Primo Briscoe [facility] CBC WITH PLATELET AND 2022-09-26 09:47:00 Primo Briscoe [facility] DIFFERENTIAL ESTIMATED GFR 2022-09-26 09:47:00 Primo Briscoe [facility]ital POC GLUCOSE 2022-09-26 02:12:00 Primo Briscoe [facility] POC GLUCOSE 2022-09-26 01:21:00 Primo Briscoe [facility]ital POC GLUCOSE 2022-09-25 21:09:00 Primo Briscoe [facility] POC GLUCOSE 2022-09-25 17:06:00 Primo Briscoe [facility] IR EPIDURAL STEROID INJ 2022-09-25 15:07:00 Kam Elaine [facility] TRANSFORA LUMBAR LEFT (NERVE ROOT BLOCK) POC GLUCOSE 2022-09-25 12:26:00 Primo Briscoe [facility] BASIC METABOLIC PANEL 2022-09-25 09:44:00 Primo Briscoe [facility] CBC WITH PLATELET AND 2022-09-25 09:44:00 Primo Briscoe [facility] DIFFERENTIAL HEMOGLOBIN A1C 2022-09-25 09:44:00 Primo Briscoe [facility]ital ESTIMATED GFR 2022-09-25 09:44:00 Primo Briscoe [facility]ital POC GLUCOSE 2022-09-25 02:59:00 Primo Briscoe [facility]ital POC GLUCOSE 2022-09-25 01:58:00 Primo Briscoe [facility]ital POC GLUCOSE 2022-09-24 20:52:00 Primo Briscoe [facility] POC GLUCOSE 2022-09-24 17:19:00 RenatePrimo [facility]ital XR CERVICAL SPINE AP 2022-09-24 14:24:00 [facility] LATERAL FLEXION AND EXTENSION XR SPINE SCOLIOSIS 2-3 2022-09-24 14:23:00 [facility] VIEWS XR LUMBAR SPINE COMPLETE 2022-09-24 14:23:00 [facility] W BENDING MRI LUMBAR SPINE W WO 2022-09-24 11:08:00 Quintin Rausch [facility] CONTRAST MRI CERVICAL SPINE W WO 2022-09-24 10:37:00 Quintin Rausch [facility] CONTRAST CBC WITH PLATELET AND 2022-09-24 09:20:00 [facility] DIFFERENTIAL LIPID PANEL 2022-09-24 09:20:00 [facility] BASIC METABOLIC PANEL 2022-09-24 09:20:00 [facility] ESTIMATED GFR 2022-09-24 09:20:00 [facility] CBC WITH PLATELET AND 2022-09-24 01:40:00 Quintin Rausch [facility] DIFFERENTIAL COMPREHENSIVE METABOLIC 2022-09-24 01:40:00 Quintin Rausch [facility] PANEL ESTIMATED GFR 2022-09-24 01:40:00 Quintin Rausch [facility] CT THORACIC SPINE WO 2022-09-24 00:59:36 Quintin Rausch [facility] CONTRAST CT CERVICAL SPINE WO 2022-09-24 00:58:27 Quintin Rausch [facility] CONTRAST CT LUMBAR SPINE WO 2022-09-24 00:58:07 Quintin Rausch [facility] CONTRAST VENOUS DOPPLER LEGS 2022-09-16 15:35:00 [facility] BILATERAL [facility] XR SPINE LUMBAR COMPLETE 2022-09-16 13:34:00 [facility] 4 VIEWS MIN [facility] TROPONIN I 2022-09-16 13:28:00 [facility] CBC W/PLT COUNT & AUTO 2022-09-16 13:28:00 EverNilson smith [facility] S t [facility] Medical DIFFERENTIAL [facility] COMPREHENSIVE METABOLIC 2022-09-16 13:28:00 [facility] PAN[facility] B-TYPE NATRIURETIC 2022-09-16 13:28[facility]00 [facility] URINALYSIS W/ REFLEX 2022-09-16 13:28:00 [facility] URINE CULTURE [facility] CBC W/PLT COUNT & AUTO 2022-09-16 13:28:00 [facility] DIFFERENTIAL [facility] EKG-SCANNED 2022-09-16 00:00:00 ProviderYessi [facility] Plan of Care Planned Activity Planned Date Details Comments Source Future Scheduled Test 2023-09-[address] [facility] (12+) [code = Tobacco Cessation Counseling and Screening (12+)] Future Scheduled Test 2023-09-[address] [facility] 00:[facility] (12+) [code = Tobacco Cessation Counseling and Screening (12+)] Future Scheduled Test 2023-09-[address] [facility] 00:[facility]:00 [facility] (12+) [code = Tobacco Cessation Counseling and Screening (12+)] Future Scheduled Test 2023-09-[address] [facility] 00:[facility]:00 [facility] Screening (12+) [code = Tobacco Cessation Counseling and Screening (12+)] Future Scheduled Test 2023-02-[address] [facility] 00:00:00 (Season Ended) [code Medical Center = INFLUENZA VACCINE (Season Ended)] Future Scheduled Test 2023-02-[address] V[address] [facility] 00:00:00 (Season Ended) [code Medical Center = INFLUENZA VACCINE (Season Ended)] Future Scheduled Test 2023-02-[address] V[address] [facility] 00:00:00 (Season Ended) [code Medical Center = INFLUENZA VACCINE (Season Ended)] Future Scheduled Test 2023-02-[address] V[address] [facility] 00:00:00 (Season Ended) [code Medical Center = INFLUENZA VACCINE (Season Ended)] Future Scheduled Test 2022-10-24 65+ PNEUMOCOCCAL [facility] 16:01:50 VACCINE (1 - PCV) [code = 65+ PNEUMOCOCCAL VACCINE (1 - PCV)] Future Scheduled Test 2022-10-24 Hepatitis C screening [facility] 16:01:50 (procedure) [code = 868648883] Future Scheduled Test 2022-10-24 SHINGLES VACCINES (1 [facility] 16:01:50 of 2) [code = SHINGLES VACCINES (1 of 2)] Future Scheduled Test 2022-10-24 COVID-19 VACCINE (3 - [facility] 16:01:50 Booster for Pfizer series) [code = COVID-19 VACCINE (3 - Booster for Pfizer series)] Future Scheduled Test 2022-10-24 INFLUENZA VACCINE [facility] 16:01:50 [code = INFLUENZA VACCINE] Future Scheduled Test 2022-10-12 65+ PNEUMOCOCCAL [facility] 14:37:48 VACCINE (1 - PCV) [code = 65+ PNEUMOCOCCAL VACCINE (1 - PCV)] Future Scheduled Test 2022-10-12 Hepatitis C screening [facility] 14:37:48 (procedure) [code = [id number]] Future Scheduled Test 2022-10-12 SHINGLES VACCINES (1 [facility] 14:37:48 of 2) [code = SHINGLES VACCINES (1 of 2)] Future Scheduled Test 2022-10-12 COVID-19 VACCINE (3 - [facility] 14:37:48 Booster for Pfizer series) [code = COVID-19 VACCINE (3 - Booster for Pfizer series)] Future Scheduled Test 2022-10-12 INFLUENZA VACCINE [facility] 14:37:48 [code = INFLUENZA VACCINE] Future Scheduled Test 2022-10-11 65+ PNEUMOCOCCAL [facility] 15:44:16 VACCINE (1 - PCV) [code = 65+ PNEUMOCOCCAL VACCINE (1 - PCV)] Future Scheduled Test 2022-10-11 Hepatitis C screening [facility] 15:44:16 (procedure) [code = [id number]] Future Scheduled Test 2022-10-11 SHINGLES VACCINES (1 [facility] 15:44:16 of 2) [code = SHINGLES VACCINES (1 of 2)] Future Scheduled Test 2022-10-11 COVID-19 VACCINE (3 - [facility] 15:44:16 Booster for Pfizer series) [code = COVID-19 VACCINE (3 - Booster for Pfizer series)] Future Scheduled Test 2022-10-11 INFLUENZA VACCINE [facility] 15:44:16 [code = INFLUENZA VACCINE] Future Scheduled Test 2022-09-16 SHINGLES VACCINES (1 [facility] 12:39:07 of 2) [code = SHINGLES VACCINES (1 of 2)] Future Scheduled Test 2022-09-16 65+ PNEUMOCOCCAL [facility] 12:39:07 VACCINE (1 - PCV) [code = 65+ PNEUMOCOCCAL VACCINE (1 - PCV)] Future Scheduled Test 2022-09-16 COVID-19 VACCINE (3 [facility] 12:39:07 Booster for Pfizer series) [code = COVID-19 VACCINE (3 - Booster for Pfizer series)] Future Scheduled Test 2022-09-16 INFLUENZA VACCINE [facility] 12:39:07 [code = INFLUENZA VACCINE] Future Scheduled Test 2022-06-[address] [facility] 00:00:00 (12+) [code = Medical Center DEPRESSION SCREENING (12+)] Future Scheduled Test 2022-06-18 F[address]S [address]IS[address] SCREENING [facility] 00:00:00 [code = FALLS RISK Medical C enter SCREENING] Future Scheduled Test 2022-06-18 Medicare IPPE [facility] (WELCOME TO MEDICARE) [facility] Center [code = Medicare IPPE (WELCOME TO MEDICARE)] Future Scheduled Test 2022-06-[address] [facility] 00:00:00 (12+) [code = Medical Center DEPRESSION SCREENING (12+)] Future Scheduled Test 2022-06-18 [address] SCREENING [facility] 00:00:00 [code = FALLS RISK Medical C enter SCREENING] Future Scheduled Test 2022-06-18 Medicare IPPE [facility] 00:[facility]:00 (WELCOME TO MEDICARE) [facility] Center [code = Medicare IPPE (WELCOME TO MEDICARE)] Future Scheduled Test 2022-06-[address] [facility] 00:00:00 (12+) [code = Medical Center DEPRESSION SCREENING (12+)] Future Scheduled Test 2022-06-18 F[address]S [address]ISK SCREENING [facility] 00:00:00 [code = FALLS RISK Medical C enter SCREENING] Future Scheduled Test 2022-06-18 Medicare IPPE [facility] 00:00:00 (WELCOME TO MEDICARE) [facility] Center [code = Medicare IPPE (WELCOME TO MEDICARE)] Future Scheduled Test 2022-06-[address] [facility] 00:00:00 (12+) [code = Medical Center DEPRESSION SCREENING (12+)] Future Scheduled Test 2022-06-18 FALLS RISK SCREENING [facility] 00:00:00 [code = FALLS RISK Medical C enter SCREENING] Future Scheduled Test 2022-06-18 Medicare IPPE [facility] 00:00:00 (WELCOME TO MEDICARE) [facility] Center [code = Medicare IPPE (WELCOME TO MEDICARE)] Future Scheduled Test 2022-06-03 COLONOSCOPY SCREENING [facility] 05:09:49 [code = COLONOSCOPY SCREENING] Future Scheduled Test 2022-06-03 SHINGLES VACCINES (1 [facility] 05:09:49 of 2) [code = SHINGLES VACCINES (1 of 2)] Future Scheduled Test 2022-06-03 65+ PNEUMOCOCCAL [facility] 05:09:49 VACCINE (1 - PCV) [code = 65+ PNEUMOCOCCAL VACCINE (1 - PCV)] Future Scheduled Test 2022-06-03 COVID-19 VACCINE (3 - [facility] 05:09:49 Booster for Pfizer series) [code = COVID-19 VACCINE (3 - Booster for Pfizer series)] Future Scheduled Test 2022-06-03 INFLUENZA VACCINE [facility] 05:09:49 [code = INFLUENZA VACCINE] Future Scheduled Test 2022-05-10 HEPATITIS B VACCINES [facility] 14:43:36 (1 of 3 - 3-dose series) [code = HEPATITIS B VACCINES (1 of 3 - 3-dose series)] Future Scheduled Test 2022-05-10 COLONOSCOPY SCREENING [facility] 14:43:36 [code = COLONOSCOPY SCREENING] Future Scheduled Test 2022-05-10 SHINGLES VACCINES (1 [facility] 14:43:36 of 2) [code = SHINGLES VACCINES (1 of 2)] Future Scheduled Test 2022-05-10 65+ PNEUMOCOCCAL [facility] 14:43:36 VACCINE (1 - PCV) [code = 65+ PNEUMOCOCCAL VACCINE (1 - PCV)] Future Scheduled Test 2022-05-10 COVID-19 VACCINE (3 - [facility] 14:43:36 Booster for Pfizer series) [code = COVID-19 VACCINE (3 - Booster for Pfizer series)] Future Scheduled Test 2022-05-10 INFLUENZA VACCINE [facility] 14:43:36 [code = INFLUENZA VACCINE] Future Scheduled Test 2010 PNEUMOCOCCAL 65+ YRS [facility] 00:00:00 (1 - PCV) [code = Medical Ce nter PNEUMOCOCCAL 65+ YRS (1 - PCV)] Future Scheduled Test 2010 PNEUMOCOCCAL 65+ [facility]RS [facility] 00:00:00 (1 - PCV) [code = Medical Ce nter PNEUMOCOCCAL 65+ YRS (1 - PCV)] Future Scheduled Test 2010 PNEUMOCOCCAL 65+ [facility]RS [facility] 00:00:00 (1 - PCV) [code = Medical Ce nter PNEUMOCOCCAL 65+ YRS (1 - PCV)] Future Scheduled Test 2010 PNEUMOCOCCAL 65+ [facility]RS [facility] 00:00:00 (1 - PCV) [code = Medical Ce nter PNEUMOCOCCAL 65+ YRS (1 - PCV)] Future Scheduled Test 1995-09-14 SHINGLES VACCINES ([address] [facility] 00:00:00 of 2) [code = Medical Center SHINGLES VACCINES (1 of 2)] Future Scheduled Test 1995-09-14 SHINGLES VACCINES ([address] [facility] 00:00:00 of 2) [code = Medical Center SHINGLES VACCINES (1 of 2)] Future Scheduled Test 1995-09-14 SHINGLES VACCINES ([address] [facility] 00:00:00 of 2) [code = Medical Center SHINGLES VACCINES (1 of 2)] Future Scheduled Test 1995-09-14 SHINGLES VACCINES ([address] [facility] 00:00:00 of 2) [code = Medical Center SHINGLES VACCINES (1 of 2)] Future Scheduled Test 1964 DTAP/TDAP/TD VACCINES [facility] 00:00:00 (1 - Tdap) [code = Medical C enter DTAP/TDAP/TD VACCINES (1 - Tdap)] Future Scheduled Test 1964 DTAP/TDAP/TD VACCINES [facility] 00:00:00 (1 - Tdap) [code = Medical C enter DTAP/TDAP/TD VACCINES (1 - Tdap)] Future Scheduled Test 1964 DTAP/TDAP/TD VACCINES [facility] 00:00:00 (1 - Tdap) [code = Medical C enter DTAP/TDAP/TD VACCINES (1 - Tdap)] Future Scheduled Test 1964 DTAP/TDAP/TD VACCINES [facility] 00:00:00 (1 - Tdap) [code = Medical C enter DTAP/TDAP/TD VACCINES (1 - Tdap)] Future Scheduled Test 1963-09-14 HEPATITIS C SCREENING [facility] 00:00:00 [code = HEPATITIS C Medical Center SCREENING] Future Scheduled Test 1963-09-14 HEPATITIS C SCREENING [facility] 00:00:00 [code = HEPATITIS C Medical Center SCREENING] Future Scheduled Test 1963-09-14 HEPATITIS C SCREENING [facility] 00:00:00 [code = HEPATITIS C Medical Center SCREENING] Future Scheduled Test 1963-09-14 HEPATITIS C SCREENING [facility] 00:00:00 [code = HEPATITIS C Medical Center SCREENING] Future Scheduled Test 1946-03-16 COVID-19 VACCINE (#1) [facility] 00:00:00 [code = COVID-[address] VACCINE (#1)] Future Scheduled Test 1946-03-16 COVID-19 VACCINE (#1) [facility] 00:00:00 [code = COVID-[address] VACCINE (#1)] Future Scheduled Test 1946-03-16 COVID-19 VACCINE (#1) [facility] 00:00:00 [code = COVID-[address] VACCINE (#1)] Future Scheduled Test 1946-03-16 COVID-19 VACCINE (#1) [facility] 00:00:00 [code = COVID-[address] VACCINE (#1)] Future Appointment 2022-12-15 Wei Christina MD, [address] [facility] 07:15:00 [facility]; [address], [place] [address] Future Appointment 2022-12-04 Wei Christina MD, [address] [facility] 07:15:00 [facility]; [address], [place] [address] Future Appointment 2022-12-04 Wei Christina MD, [address] [facility] 07:15:00 [facility]; [address], [place] [address] Future Appointment 2022-12-15 Wei Christina MD, [address] [facility] 07:15:00 [facility]; [address], [place] [address] Future Appointment 2022-12-04 Wei Christina MD, [address] [facility] 07:15:00 [facility]; [address], [place] [address] Future Appointment 2022-12-04 Wei Christina MD, [address] [facility] 07:15:00 [facility]; [address], [place] [address] Procedure 2022-12-15 FUS[facility] 12:15:00 SPINAL COLUMN, LUMBAR, ANTERIOR AND POSTERIOR APPROACHES, W LUMBAR LAMINECTOMY Procedure 2022-12-04 FUSION, ANT AND POST [facility] 12:15:00 SPINAL COLUMN, LUMBAR, ANTERIOR AND POSTERIOR APPROACHES, W LUMBAR LAMINECTOMY Encounters Start End Encounter Admission Attending Care Care Encounter Source Date/Time Date/Time Type Type Clinicians Facility Department ID 2022-10-18 [facility] 1.2.840.1 [id number] [facility] 00:00:[id number] 3.430.2.7 Hospit a .3.928518 l .8 2022-10-18 [facility] 1.2.840.1 [id number] [facility] 00:00:[address] 3.430.2.7 Hospit a .3.852762 l .8 2020-12-17 Inpatient Elliott [facility] [id number] [facility] 10:20:00 [place] 32 2022-10-10 2022-10-10 Office Wei Christina 1.2.840.1 [id number] [facility] 08:30:00 08:57:[address] 3.430.2.7 Hospit a .3.567163 l .8 2022-10-10 2022-10-10 Office Wei Christina 1.2.840.1 [id number] [facility] 08:30:00 08:57:[address] 3.430.2.7 Hospit a .3.628128 l .8 2022-10-10 2022-10-10 Travel 1.2.840.1 1.2.733.844 [id number] [facility] 00:00:00 00:00:[address] 3.430.2.7 0.2.7.3.698 Ho spita .3.226515 084.8 l .8 2022-10-10 2022-10-10 Travel 1.2.840.1 1.2.693.139 [id number] [facility] 00:00:00 00:00:[address] 3.430.2.7 0.2.7.3.698 Ho spita .3.337430 084.8 l .8 2022-09-23 2022-09-26 [facility] Quintin Klever 1.2.840.1 [id number] [facility] 12:51:00 13:54:00 Encounter Primo Briscoe 48777.1.[address] 3.430.2.7 Hospit a .3.277048 l .8 2022-09-23 2022-09-26 [facility] [id number] [facility] 12:51:00 13:54:00 Encounter Primo Briscoe 04771.1.[address] 3.430.2.7 Hospit a .3.663496 l .8 2022-09-23 2022-09-23 Travel 1.2.840.1 1.2.756.089 [id number] [facility] 00:00:00 00:00:[address] 3.430.2.7 0.2.7.3.698 Ho spita .3.317059 084.8 l .8 2022-09-23 2022-09-23 Travel 1.2.840.1 1.2.682.301 0812 [id number] [facility] 00:00:00 00:00:[address] 3.430.2.7 0.2.7.3.698 Ho spita .3.762604 084.8 l .8 2022-09-16 2022-09-16 Emergency ER [facility] [id number] [facility] St 12:57:00 17:27:00 [facility] 2022-09-16 2022-09-16 Emergency [facility] [id number] [facility] St 12:57:00 17:27:00 [facility] 2022-09-16 2022-09-16 [facility] Emergency [id number] [facility] 12:57:00 17:27:00 [place] 2022-08-27 2022-08-27 [facility] 17:13:00 21:59:00 , L[place] 2020-12-17 2020-12-17 Outpatient [facility] [id number] [facility] 08:28:00 08:28:00 32 2020-10-19 2020-10-19 Outpatient MARY SPR[facility]ER [facility] 7501 [facility] 07:59:00 23:59:00 ANGELIQUE 2020-09-23 2020-09-23 Outpatient BRITANY [facility] [id number] 00:00:00 00:00:00 MICHAEL Bocanegra Tx thodi 2020-09-02 2020-09-02 Outpatient [facility] [id number] 00:00:00 00:00:[address] 2019-11-20 2019-11-20 Outpatient MARY SPRINGER [facility] 7500 [facility] 10:54:00 10:54:00 ANGELIQUE Results Test Description Test Time Test Comments Results Result Comments Source POC glucose 2022-09-26 17:14:00 Test Item Value Reference Range Interpretation Comme nts POC glucose (test code = 242 mg/dL 65-99 H Ope rator Name: Jr Alberto 72345-0Haroldo AdijatDevice ID : [id number] able: TM Notified scientific informatics analyst Interpretation (test code = Abnormal 64529-4) [facility] [id number] 17:14:00 Test Item Value Reference Range Interpretation Comments POC glucose (test code 242 mg/dL 65-99 H Opera tor Name: = 90030-4) Dwainisamar Alberto LazaroijatDevice ID : [id number] able: TM Notified scientific informatics analyst Interpretation Abnormal (test code = 54526-0) [facility] [id number] 17:14:00 Test Item Value Reference Range Interpretation Comments POC glucose (test code 242 mg/dL 65-99 H Opera tor Name: = 52546-8) Jr Alberto LazaroijatDevice ID : [id number] able: TM Notified scientific informatics analyst Interpretation Abnormal (test code = 32016-9) [facility] DOPPLER LEGS, [id number] 16:31:00Reason for exam:->[facility] : 1945 Sex: MFINAL REPORT Doppler ultrasound of the bilateral lower extremity dated 09/16/2022 Comment: Color Doppler and spectral analysis of both lower extremities were obtained. There was no deep venous obstruction in the distal external iliac, common femoral, profunda femoral, femoral, popliteal or posterior tibial veins. Compression was utilized and demonstrated normal augmentation in both lower extremities. There was no venous obstruction in the greater saphenous vein. Impression: No deep venousthrombosis in either lower extremity. Signed: Kayleigh Fisher Verified Date/Time: 09/16/2022 16:31:31 Reading Location: [facility] C013Y CT Body Reading Room RAD, SPINE, LUMBAR, COMPLETE (MIN 4 VIEWS)2022-09-16 15:20:00Reason for exam:->[facility] : 1945 Sex: MFINAL REPORT Lumbar spine dated 09/16/2022 Comment: Lumbar spine was examined frontal, lateral, and each oblique projection. There are 5 nonrib- bearing lumbar vertebral bodies present. Degenerative changes are seen throughout number spine with marginal osteophytes formation. No fracture, dis location, or subluxations seen in the lumbar spine. Paravertebral soft tissues unremarkable. Impression: Degenerative changes in the lumbar spine. Signed: Kayleigh Fisher Verified Date/Time: 09/16/2022 15:20:38 Reading Location: [facility] C013Y CT Body Reading Room TROPONIN [id number] 14:06:13 Test Item Value Reference Range Interpretation Comments TROPONIN I (BEAKER) (test code = 397) < ng/mL 0.00-0.15 Troponin I (TnI) levels must be interpreted in the context of the presenting symptoms and the clinical findings. Elevated TnI levels indicate myocardial damage, but are not specific for ischemic heart disease. Elevated TnI levels are seen in patients with other cardiac conditions (including myocarditis and congestive heart failure), and slight TnI elevations occur in patients with other conditions, including sepsis, renal failure, acidosis, acute neurological disease, and persistent tachyarrhythmia.Volunteer Services Coordinator ID - [id number] NATRIURETIC FACTOR (BNP)2022-09-16 14:04:12 Test Item Value Reference Range Interpretation Comments B-TYPE NATRIURETIC PEPTIDE (BEAKER) 70 pg/mL 0-100 (test code = 700) Volunteer Services Coordinator ID - [id number] METABOLIC [id number] 13:56:31 Test Item Value Reference Range Interpretation Comments TOTAL PROTEIN 6.8 gm/dL 6.0-8.5 (BEAKER) (test code = 770) ALBUMIN (BEAKER) 3.7 g/dL 3.5-5.0 (test code = 1145) ALKALINE 88 U/L 30-115 PHOSPHATASE (BEAKER) (test code = 346) BILIRUBIN TOTAL 0.4 mg/dL 0.1-1.2 (BEAKER) (test code = 377) SODIUM (BEAKER) 139 meq/L 135-148 (test code = 381) POTASSIUM (BEAKER) 5.0 meq/L 3.6-5.5 (test code = 379) CHLORIDE (BEAKER) 110 meq/L 98-106 H (test code = 382) CO2 (BEAKER) (test 20 meq/L 20-29 code = 355) BLOOD UREA 22 mg/dL 10-26 NITROGEN (BEAKER) (test code = 354) CREATININE 1.03 mg/dL 0.50-1.20 (BEAKER) (test code = 358) GLUCOSE RANDOM 141 mg/dL 70-110 H (BEAKER) (test code = 652) CALCIUM (BEAKER) 9.0 mg/dL 8.5-10.5 (test code = 697) AST (SGOT) 28 U/L 5-40 (BEAKER) (test code = 353) ALT (SGPT) 49 U/L 5-50 (BEAKER) (test code = 347) EGFR (BEAKER) 76 Interpretatio n of eGFR (test code = 1092) mL/min/1.[address] age Description sq m Result G1 Bette l or high >=90 G2 Mildly decreased 60-89 G3a Mildl y to moderately 45-5 9 G3b Moderately to s everely 30-44 G4 Severl y decreased 15-29 G5 Kidney failure <15Reported eGF R is based on the CKD-EPI 2020 equation that d oes not use a race coefficientEsti mated GFR is not as accur ate as Creatinine Jie barrera in predicting glom erular filtration rate . Estimated GFR is not appl icable for dialysis patien ts Volunteer Services Coordinator ID - [id number] ID - [id number] ID - [id number] ID - [id number] ID - [id number] ID - [id number] ID - [id number] ID - [id number] ID - [id number] ID - OOXYQKOWP298Bvvkwkiy ID - VYWOQPZKZ586Gucslmmh ID - [id number] ID - [id number] ID - [id number] ID - [id number] ID -[id number] ID - [id number] ID - [id number] ID - [id number] w/Microscopic + Reflex to [id number] 13:49:31 Test Item Value Reference Range Interpretation Comments Color, UA (test code = Yellow 5778-6) Clarity, UA (test code = Clear 5767-9) Specific [place], UA 1.015 1.001-1.035 (test code = 5811-5) pH, UA (test code = 5.5 5.0-8.0 5803-2) Protein, UA (test code = Negative Negative 47730-5) Glucose, UA (test code = Negative Negative 365) Ketones, UA (test code = Trace Negative A 2514-8) Bilirubin, UA (test code Negative Negative = 57952-2) Blood, UA (test code = Negative Negative 57694-1) Nitrite, UA (test code = Negative Negative 5802-4) Leukocytes, UA (test Trace Negative A code = 5799-2) Urobilinogen, UA (test 0.2 code = 18065-8) Bacteria, UA (test code Few = 30107-4) RBC, UA (test code = <5 See_Comment [Autom ated message] 799-7) The system [employer] generated this result transmitted ref erence range: /HPF. Th e reference range was not used to int erpret this result as normal/abnormal . WBC, UA (test code = 5-10 See_Comment [Autom ated message] 29324-2) The system [employer] generated this result transmitted ref erence range: /HPF. Th e reference range was not used to int erpret this result as normal/abnormal . SQUAMOUS EPITHELIAL <5 See_Comment [Automa coco message] (test code = 88029-5) The sy stem which generated this result transmitted ref erence range: /HPF. Th e reference range was not used to int erpret this result as normal/abnormal . Specimen Source (test code = 2795) Lab Interpretation (test Abnormal code = 43805-9) [facility] Culture 2022-09-16 13:49:31 Test Item Value Reference Range Interpretation Comments Color, UA (test code = Yellow 5778-6) Clarity, UA (test code = Clear 5767-9) Specific [place], UA 1.015 1.001-1.035 (test code = 5811-5) pH, UA (test code = 5.5 5.0-8.0 5803-2) Protein, UA (test code = Negative Negative 31716-3) Glucose, UA (test code = Negative Negative 365) Ketones, UA (test code = Trace Negative A 2514-8) Bilirubin, UA (test code Negative Negative = 50857-4) Blood, UA (test code = Negative Negative 45454-8) Nitrite, UA (test code = Negative Negative 5802-4) Leukocytes, UA (test Trace Negative A code = 5799-2) Urobilinogen, UA (test 0.2 code = 53677-7) Bacteria, UA (test code Few = 93389-1) RBC, UA (test code = <5 See_Comment [Autom ated message] 799-7) The system [employer] generated this result transmitted ref erence range: /HPF. Th e reference range was not used to int erpret this result as normal/abnormal . WBC, UA (test code = 5-10 See_Comment [Autom ated message] 13396-5) The system [employer] generated this result transmitted ref erence range: /HPF. Th e reference range was not used to int erpret this result as normal/abnormal . SQUAMOUS EPITHELIAL <5 See_Comment [Automa coco message] (test code = 95778-1) The sy stem which generated this result transmitted ref erence range: /HPF. Th e reference range was not used to int erpret this result as normal/abnormal . Specimen Source (test code = 2795) Lab Interpretation (test Abnormal code = 29147-1) [facility] + Reflex to Culture 2022-09-16 13:49:31 Test Item Value Reference Range Interpretation Comments Color, UA (test code = Yellow 5778-6) Clarity, UA (test code = Clear 5767-9) Specific [place], UA 1.015 1.001-1.035 (test code = 5811-5) pH, UA (test code = 5.5 5.0-8.0 5803-2) Protein, UA (test code = Negative Negative 17505-6) Glucose, UA (test code = Negative Negative 365) Ketones, UA (test code = Trace Negative A 2514-8) Bilirubin, UA (test code Negative Negative = 33570-8) Blood, UA (test code = Negative Negative 76731-7) Nitrite, UA (test code = Negative Negative 5802-4) Leukocytes, UA (test Trace Negative A code = 5799-2) Urobilinogen, UA (test 0.2 code = 56266-9) Bacteria, UA (test code Few = 68104-9) RBC, UA (test code = <5 See_Comment [Autom ated message] 799-7) The system [employer] generated this result transmitted ref erence range: /HPF. Th e reference range was not used to int erpret this result as normal/abnormal . WBC, UA (test code = 5-10 See_Comment [Autom ated message] 02561-1) The system [employer] generated this result transmitted ref erence range: /HPF. Th e reference range was not used to int erpret this result as normal/abnormal . SQUAMOUS EPITHELIAL <5 See_Comment [Automa coco message] (test code = 82982-3) The sy stem which generated this result transmitted ref erence range: /HPF. Th e reference range was not used to int erpret this result as normal/abnormal . Specimen Source (test code = 2795) Lab Interpretation (test Abnormal code = 79602-6) [facility] + Reflex to Culture 2022-09-16 13:49:31 Test Item Value Reference Range Interpretation Comments Color, UA (test code = Yellow 5778-6) Clarity, UA (test code = Clear 5767-9) Specific [place], UA 1.015 1.001-1.035 (test code = 5811-5) pH, UA (test code = 5.5 5.0-8.0 5803-2) Protein, UA (test code = Negative Negative 07409-0) Glucose, UA (test code = Negative Negative 365) Ketones, UA (test code = Trace Negative A 2514-8) Bilirubin, UA (test code Negative Negative = 43829-6) Blood, UA (test code = Negative Negative 71015-6) Nitrite, UA (test code = Negative Negative 5802-4) Leukocytes, UA (test Trace Negative A code = 5799-2) Urobilinogen, UA (test 0.2 code = 32580-1) Bacteria, UA (test code Few = 91161-3) RBC, UA (test code = <5 See_Comment [Autom ated message] 799-7) The system [employer] generated this result transmitted ref erence range: /HPF. Th e reference range was not used to int erpret this result as normal/abnormal . WBC, UA (test code = 5-10 See_Comment [Autom ated message] 72077-5) The system [employer] generated this result transmitted ref erence range: /HPF. Th e reference range was not used to int erpret this result as normal/abnormal . SQUAMOUS EPITHELIAL <5 See_Comment [Automa coco message] (test code = 96209-0) The sy stem which generated this result transmitted ref erence range: /HPF. Th e reference range was not used to int erpret this result as normal/abnormal . Specimen Source (test code = 2795) Lab Interpretation (test Abnormal code = 93979-7) [facility]FLEX URINE [id number] 13:49:31 Test Item Value Reference Range Interpretation Comments COLOR (BEAKER) (test code = 470) Yellow CLARITY (BEAKER) (test code = 469) Clear SPECIFIC GRAVITY UA (BEAKER) (test 1.015 1.001-1.035 code = 468) PH UA (BEAKER) (test code = 467) 5.5 5.0-8.0 PROTEIN UA (BEAKER) (test code = Negative Negative 464) GLUCOSE UA (BEAKER) (test code = Negative Negative 365) KETONES UA (BEAKER) (test code = Trace Negative A 371) BILIRUBIN UA (BEAKER) (test code = Negative Negative 462) BLOOD UA (BEAKER) (test code = 461) Negative Negative NITRITE UA (BEAKER) (test code = Negative Negative 465) LEUKOCYTE ESTERASE UA (BEAKER) Trace Negative A (test code = 466) UROBILINOGEN UA (BEAKER) (test code 0.2 = 463) BACTERIA (BEAKER) (test code = 517) Few RBC UA-MANUAL (BEAKER) (test code = <5 /HPF 1659) WBC UA-MANUAL (BEAKER) (test code = 5-10 /HPF 1661) SQUAMOUS EPITHELIAL MANUAL (BEAKER) <5 /HPF (test code = 1663) SOURCE(BEAKER) (test code = 1165) CBC W/PLT COUNT & AUTO [id number] 13:42:04 Test Item Value Reference Range Interpretation Comments WHITE BLOOD CELL COUNT (BEAKER) 10.3 K/ L 4.0-10.0 H (test code = 775) RED BLOOD CELL COUNT (BEAKER) 3.54 M/ L 4.20-5.80 L (test code = 761) HEMOGLOBIN (BEAKER) (test code = 10.8 GM/DL 13.0-16.8 L 410) HEMATOCRIT (BEAKER) (test code = 32.9 % 36.0-50.0 L 411) MEAN CORPUSCULAR VOLUME (BEAKER) 93 fL 82-99 (test code = 753) MEAN CORPUSCULAR HEMOGLOBIN 30.5 pg 27.0-33.0 (BEAKER) (test code = 751) MEAN CORPUSCULAR HEMOGLOBIN CONC 32.8 GM/DL 32.0-36.0 (BEAKER) (test code = 752) RED CELL DISTRIBUTION WIDTH 12.5 % 12.0-15.0 (BEAKER) (test code = 412) PLATELET COUNT (BEAKER) (test 238 K/CU MM 150-430 code = 756) MEAN PLATELET VOLUME (BEAKER) 10.5 fL 6.0-11.5 (test code = 754) NUCLEATED RED BLOOD CELLS 0 /100 WBC 0-0 (BEAKER) (test code = 413) NEUTROPHILS RELATIVE PERCENT 50 % (BEAKER) (test code = 429) LYMPHOCYTES RELATIVE PERCENT 35 % (BEAKER) (test code = 430) MONOCYTES RELATIVE PERCENT 7 % (BEAKER) (test code = 431) EOSINOPHILS RELATIVE PERCENT 6 % (BEAKER) (test code = 432) BASOPHILS RELATIVE PERCENT 1 % (BEAKER) (test code = 437) NEUTROPHILS ABSOLUTE COUNT 5.17 K/ L 1.80-8.00 (BEAKER) (test code = 670) LYMPHOCYTES ABSOLUTE COUNT 3.60 K/ L 1.48-4.50 (BEAKER) (test code = 414) MONOCYTES ABSOLUTE COUNT (BEAKER) 0.69 K/ L 0.00-1.30 (test code = 415) EOSINOPHILS ABSOLUTE COUNT 0.63 K/ L 0.00-0.50 H (BEAKER) (test code = 416) BASOPHILS ABSOLUTE COUNT (BEAKER) 0.14 K/ L 0.00-0.20 (test code = 417) IMMATURE GRANULOCYTES-RELATIVE 0.40 % 0.00-0.00 H PERCENT (BEAKER) (test code = 2801) Glucose [id number] 09:20:00 Test Item Value Reference Range Interpretation Comments Glucose Fingerstick 123 mg/dL 70-115 KINESIOLOGIST Narcisa Spangler (test code = WGLUC)
--- NOTE | 2022-10-25 15:55 | RAD REPORT ---
EXAM DESCRIPTION: RAD - Foot Left 3 View - 10/25/2022 3:43 pm CLINICAL HISTORY: heel infection COMPARISON: <Comparisons> FINDINGS: Large calcaneal spurs are present. Mild atherosclerosis. No evidence of osteomyelitis. No acute fracture evident.
[2022-10-25] MEDS ORDERED: NA CHLORIDE 0.9% 100 ML ONE (16:06)
[2022-10-25] MEDS ORDERED: NA CHLORIDE 0.9% 1,000 ML ONE (16:06)
[2022-10-25] MEDS ORDERED: NA CHLORIDE 0.9% 250 ML ONE ×2 (16:06→22:18)
[2022-10-25] MEDS ORDERED: CEFAZOLIN SODIUM 1 GM/VIAL ONE (16:06)
[2022-10-25] MEDS ORDERED: VANCOMYCIN 1 GM/VIAL ONE ×2 (16:06→22:17)
[2022-10-25 16:32] LABS: Albumin 2.8 g/dL (3.4-5.0); Bilirubin Total 0.3 mg/dL (0.2-1.0); Potassium 4.8 mEq/L (3.5-5.1); Protein, Total 6.6 g/dL (6.4-8.2)
[2022-10-25 16:33] LABS: Absolute Lymphocytes (CBC) 1.3 K/uL (0.7-4.9); Hematocrit 30.1 % (39.6-49.0); MCV 89.1 fL (80-100); MPV 7.9 fL (7.6-11.3); RBC Red Blood Cell Count 3.38 M/uL (4.33-5.43)
[2022-10-25 16:36] LABS: Protime INR 0.97
[2022-10-25] MEDS ORDERED: INSULIN -REGULAR HUMAN 50 UNIT/0.5 ML ML ONE (16:36)
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
[2022-10-25] MEDS ORDERED: ACETAMINOPHEN 325 MG TABLET PO PRN (17:10)
[2022-10-25] MEDS ORDERED: ONDANSETRON 4 MG/2 ML VIAL IV PRN (17:13)
[2022-10-25] MEDS ORDERED: GLUCAGON 1 MG/VIAL IM PRN (17:14)
[2022-10-25] MEDS ORDERED: D10W 250 ML BAG IV PRN (17:20)
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
[2022-10-25] MEDS ORDERED: VANCOMYCIN 1 GM in NA CHLORIDE 0.9% 250 ML IVPB SCH (18:54)
[2022-10-25] MEDS: INSULIN LISPRO 100 UNIT/1 ML SQ SCH (18:55)
[2022-10-25] MEDS ORDERED: VANCOMYCIN 750 MG in NA CHLORIDE 0.9% 150 ML IVPB ONE (20:00)
[2022-10-25] MEDS ORDERED: VANCOMYCIN 500 MG/VIAL ONE (22:12)
[2022-10-25] MEDS: CEFEPIME 2 GM in NA CHLORIDE 0.9% 100 ML IV SCH (22:14)
[2022-10-25] MEDS: INSULIN -REGULAR HUMAN 50 UNIT/0.5 ML ML SQ SCH (22:15)
[2022-10-25] MEDS: INSULIN GLARGINE 100 UNIT/ML SQ SCH (22:15)
[2022-10-25] MEDS: HYDROCODONE/APAP 10/325 TAB PO PRN (22:15)
[2022-10-26 00:11] VITALS: BMI 34.4
[2022-10-26] MEDS ORDERED: CEFEPIME 1 GM in NA CHLORIDE 0.9% 100 ML IV SCH (01:00)
[2022-10-26 03:58] LABS: Absolute Lymphocytes (CBC) 2.5 K/uL (0.7-4.9); Hematocrit 27.9 % (39.6-49.0); Lymphocytes % 11.6 % (15.3-44.8); MCV 88.8 fL (80-100); RBC Red Blood Cell Count 3.14 M/uL (4.33-5.43)
[2022-10-26 04:10] LABS: Albumin 2.4 g/dL (3.4-5.0); Bilirubin Total 0.2 mg/dL (0.2-1.0); Potassium 4.2 mEq/L (3.5-5.1)
[2022-10-26 04:56] LABS: Blood Morphology Comment NOT SEEN (NOT SEEN); Platelet Estimate ADEQ
[2022-10-26] MEDS: INSULIN -REGULAR HUMAN 50 UNIT/0.5 ML ML SQ SCH ×4 (07:30→21:49)
[2022-10-26] MEDS ORDERED: PNEUMOCOCCAL VACCINE 0.5 ML IMVAC ONE (08:00)
[2022-10-26] MEDS: INSULIN LISPRO 100 UNIT/1 ML SQ SCH ×3 (08:00→17:00)
[2022-10-26] MEDS: CEFEPIME 2 GM in NA CHLORIDE 0.9% 100 ML IV SCH ×2 (09:21→21:48)
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
--- NOTE | 2022-10-26 13:11 | P.PN ---
Subjective Date of Service: 10/26/22 Chief Complaint: Bilateral hips cellulitis\\ulcers No acute events since admission. He reports mild left heel pain. He denies any chest pain, palpitations, or shortness of breath. He has been NPO past midnight in anticipation for surgery today. Review of Systems 10-point ROS is otherwise unremarkable Musculoskeletal: Foot Pain (left heel) Physical Examination - Vital Signs Temperature: 98.0 F Blood Pressure: 144/65 Pulse: 61 Respirations: 14 Pulse Ox (%): 99 - Physical Exam General: Alert, In no apparent distress, Oriented x3 HEENT: Atraumatic, Mucous membr. moist/pink, Sclerae nonicteric Neck: JVD not distended Respiratory: Clear to auscultation bilaterally, Normal air movement Cardiovascular: No edema, Regular rate/rhythm, No gallops, No rubs, No murmurs Gastrointestinal: Normal bowel sounds, Soft and benign, Non-distended, No tenderness, No rebound, No guarding Musculoskeletal: No clubbing Integumentary: Pressure ulcer (left heel (unstageable with eschar), right heel blister, sacrum (stage I)) - Studies Laboratory Data (last 24 hrs) 10/25/22 15:54: Magnesium 1.1 L 10/25/22 15:54: PT 10.7, INR 0.97, APTT 25.9 10/25/22 15:54: Sodium 126 L, Potassium 4.8, BUN 45 H, Creatinine 1.14, Glucose 449 H*, Total Bilirubin 0.3, AST 10 L, ALT 36, Alkaline Phosphatase 123 H 10/25/22 15:54: WBC 19.10 H, Hgb 10.1 L, Hct 30.1 L, Plt Count 366 Assessment And Plan - Plan # Sepsis likely secondary to Infected Left Heel Pressure Ulcer (unstageable) - POA # Concomitant Steroid-Induced Leukocytosis # Sacral Pressure Ulcer (Stage I) - POA # Right Heel Pressure Ulcer (Stage I) - POA He met sepsis criteria based on HR > 90 bpm and WBC > 12,000, and the suspected source is an infected heel pressure ulcer. - General Surgery consulted and spoke with Dr. Whitfield - recommendations appreciated - Radiology: - Left foot x-ray = "large calcaneal spurs are present. Mild atherosclerosis. No evidence of osteomyelitis. No acute fracture evident." - MRI right ankle = "no evidence of osteomyelitis involving the right ankle." - MRI left ankle = "no evidence of osteomyelitis at the left ankle." - Bilateral lower extremity arterial ultrasound = "monophasic waveforms within the bilateral posterior tibial and dorsalis pedis arteries consistent with at least mild hemodynamically significant stenoses." - Bilateral lower extremity Doppler = "no DVT in either lower extremity." - Sepsis order set was initiated - Initial Lactate was 1.9 - Blood cultures drawn before antibiotics were given - Broad spectrum antibiotics started: Vancomycin + Cefepime - In regards to fluids: - 30 mL/kg of IV fluids was not administered given SBP > 90, MAP > 65, lactic acid < 4 # Hyperglycemia in Type II Diabetes Mellitus # Hyponatremia due to Hyperglycemia - Hgb A1c = 6.7 % - Continue home linagliptin, glipizide - Correction scale insulin # Hypertension - Resume home amlodipine, lisinopril - PRN hydralazine for SBP > 160 mmHg # Hypothyroidism - Hold home levothyroxine # Benign Prostatic Hyperplasia - Continue home tamsulosin # Gout - Continue home allopurinol # Gastroesophageal Reflux Disease - Continue home pantoprazole # Hypomagnesemia - Replace as needed # Obesity - BMI 33.7 kg/m2 - Lifestyle modifications - Follow-up with PCP Fredo Kent M.D.
--- NOTE | 2022-10-26 13:20 | RAD REPORT ---
EXAM DESCRIPTION: MRI - Ankle Left Wo Cont - 10/26/2022 1:09 pm CLINICAL HISTORY: Left heel necrosis, R O Osteomyelitis COMPARISON: No comparisons FINDINGS: No fracture or malalignment of the left ankle is identified. No abnormal T1 or T2 signal i s present to suggest the presence of osteomyelitis. Calcaneal spurring is present. No abscess identif ied. Subcutaneous edema is present. IMPRESSION: No evidence of osteomyelitis at the left ankle.
--- NOTE | 2022-10-26 13:23 | RAD REPORT ---
EXAM DESCRIPTION: MRI - Ankle Right Wo Cont - 10/26/2022 1:09 pm CLINICAL HISTORY: RT HEEL ULCER R O Osteomyelitis COMPARISON: Ankle Left Wo Cont dated 10/26/2022 FINDINGS: No right ankle fractures identified. No abnormal T1 or T2 signal identified that would sug gest the presence of underlying osteomyelitis. There are scattered degenerative changes in the midfoo t. Mild subcutaneous edema is present. No abscess identified. Calcaneal spurring. IMPRESSION: No evidence of osteomyelitis involving the right ankle.
--- NOTE | 2022-10-26 13:48 | RAD REPORT ---
EXAM DESCRIPTION: US - Extrem Venous W Compress Akin - 10/26/2022 1:11 pm CLINICAL HISTORY: Vascular exam for chronic lower extremity wounds COMPARISON: No comparisons TECHNIQUE: Real-time sonographic evaluation of the lower extremity deep venous systems was performed using color Doppler, grayscale, and compression. FINDINGS: Bilateral lower extremities. Normal compressibility, flow augmentation, phasic flow and spontaneous flow is identified in both the left and right lower extremity deep venous systems. No intraluminal filling defects seen. IMPRESSION: No DVT in either lower extremity.
--- NOTE | 2022-10-26 13:48 | RAD REPORT ---
EXAM DESCRIPTION: US - Lower Extremity Arterial Bilat - 10/26/2022 1:11 pm CLINICAL HISTORY: Vascular exam for chronic lower extremity wounds COMPARISON: None FINDINGS: The common femoral, superficial femoral and popliteal arteries bilaterally demonstrate mul tiphasic waveforms The posterior tibial and dorsalis pedis arteries demonstrate monophasic waveforms bilaterally. IMPRESSION: Monophasic waveforms within the bilateral posterior tibial and dorsalis pedis arteries c onsistent with at least mild hemodynamically significant stenoses.
[2022-10-26] MEDS ORDERED: propofoL 200 MG/20 ML VIAL IV ONE (14:22)
[2022-10-26] MEDS ORDERED: FENTANYL CITR 100 MCG/2 ML ONE (14:22)
[2022-10-26] MEDS ORDERED: LIDOCAINE 2% MPF 5 ML VIAL ONE (14:22)
[2022-10-26] MEDS ORDERED: ONDANSETRON 4 MG/2 ML VIAL ONE (14:24)
[2022-10-26] MEDS ORDERED: NA CHLORIDE 0.9% 1,000 ML ONE (14:54)
[2022-10-26] MEDS ORDERED: VANCOMYCIN 1.75 GM in NA CHLORIDE 0.9% 500 ML IVPB SCH (16:00)
[2022-10-26] MEDS ORDERED: LIDOCAINE HCL/EPINEPHRINE 20 ML MDV ONE (16:14)
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
--- NOTE | 2022-10-26 17:06 | P.OP ---
Preoperative diagnosis: Bilateral Heel diabetic ulcers Postoperative diagnosis: Bilateral Heel diabetic ulcers Primary procedure: Debridement of Bilateral Heel Ulcers Anesthesia: GETA + Local Estimated blood loss: <10cc Specimen: debridement tissue Findings: ~9cm round LEFT heel ulcer, 1cm RIGHT heel ulcer to fascia Complications: None Transferred to: Recovery Room Condition: Good
[2022-10-26] MEDS: FENTANYL CITR 100 MCG/2 ML ONE ×3 (17:08→17:21)
[2022-10-26] MEDS: HYDROMORPHONE HCL 1 MG/ML INJ ONE ×2 (17:31→17:39)
[2022-10-26] MEDS ORDERED: COLLAGENASE 30 GM OINTMENT TOP ONE (17:41)
[2022-10-26] MEDS: VANCOMYCIN 1.75 GM in NA CHLORIDE 0.9% 500 ML IVPB SCH (18:01)
[2022-10-26] MEDS ORDERED: glipiZIDE 5 MG TAB PO SCH (19:15)
[2022-10-26 19:45] LABS: Thyroid Stimulating Hormone 2.17 uIU/mL (0.358-3.740)
[2022-10-26] MEDS: TAMSULOSIN 0.4 MG SR CAP PO SCH (21:47)
[2022-10-26] MEDS: PANTOPRAZOLE 40MG TABLET PO SCH (21:47)
[2022-10-26] MEDS: HYDROCODONE/APAP 10/325 TAB PO PRN (21:48)
[2022-10-26] MEDS: INSULIN GLARGINE 100 UNIT/ML SQ SCH (21:49)
[2022-10-26] MEDS ORDERED: MORPHINE 2 MG/ML SYR IV ONE (23:05)
--- NOTE | 2022-10-26 23:24 | OP ---
Date of Procedure: 10/26/2022 Surgeon: Phani Whitfield MD, Preoperative Diagnosis: Bilateral heel diabetic ulcers. Postoperative Diagnosis: Bilateral heel diabetic ulcers. Procedure Performed: Debridement of bilateral heel ulcers. Anesthesia: General endotracheal plus local with 1% lidocaine with epinephrine. Estimated Blood Loss: Less than 10 cc. Specimen: Debridement tissue. Findings: A 9 cm round left posterior heel ulcer/necrotic tissue down to the plantar fascia and a 1 cm right heel ulcer extending to the fascia were noted. Complications: None. The patient was transferred to recovery room in good condition. Procedure In Detail: After informed consent was obtained, the patient was brought to the operating r oom and prepped and draped in the usual sterile fashion. After adequate anesthesia was achieved, I a nesthetized the bilateral heels as described above using 1% lidocaine with epinephrine. I then made a curvilinear incision circumferentially around the left heel initially down through an obvious black eschar area down to subcutaneous tissues and ultimately into plantar fascia. The adipose tissue was exposed at this point. There was no bony or tendinous involvement throughout the procedure. I then used electrocautery to dissect around circumferentially and remove all necrotic tissue that was sent off for pathologic examination. The area was approximately 9 cm in size. The area was then irrigat ed. Hemostasis was achieved with electrocautery. The wound was then packed with Vashe soaked Kerlix and a sterile dressing placed over top. At this point, I turned my attention to the right heel. Th ere was a small area approximately 1 cm x 0.5 cm area of concern. I then made a circular incision ar ound this area of pressure effect/diabetic wound and removing the tissue down through subcutaneous ti ssues into the adipose tissue. Once again, good bleeding tissue was appreciated at this point. I th en achieved hemostasis with electrocautery. This tissue was sent off for pathologic examination with only minimal bleeding. I then packed the wound with Vashe soaked 0.25 inch plain packing and a ster ile dressing placed over top. The patient tolerated the procedure without evidence of any complicati on and transferred to PACU in good condition. All counts were correct at the end of the case. TK/MODL Voice ID: [id number] Report ID: [id number]
[2022-10-27] MEDS: HYDROCODONE/APAP 10/325 TAB PO PRN ×3 (02:12→21:27)
[2022-10-27 03:34] LABS: Absolute Lymphocytes (CBC) 5.1 K/uL (0.7-4.9); Hematocrit 32.3 % (39.6-49.0); Lymphocytes % 23.4 % (15.3-44.8); MCV 90.1 fL (80-100); MPV 7.7 fL (7.6-11.3); RBC Red Blood Cell Count 3.58 M/uL (4.33-5.43)
[2022-10-27] MEDS: LEVOTHYROXINE SOD 0.1 MG TAB PO SCH (06:15)
[2022-10-27] MEDS: INSULIN -REGULAR HUMAN 50 UNIT/0.5 ML ML SQ SCH ×4 (07:30→20:26)
[2022-10-27] MEDS: INSULIN LISPRO 100 UNIT/1 ML SQ SCH ×3 (08:00→17:00)
[2022-10-27] MEDS: Linagliptin [Tradjenta] 5 MG Tablet PO SCH (09:00)
[2022-10-27] MEDS: allopurinoL 100 MG TAB PO SCH (09:23)
[2022-10-27] MEDS: TAMSULOSIN 0.4 MG SR CAP PO SCH ×2 (09:23→20:26)
[2022-10-27] MEDS: glipiZIDE 5 MG TAB PO SCH ×2 (09:23→17:28)
[2022-10-27] MEDS: AMLODIPINE 10 MG TAB PO SCH (09:23)
[2022-10-27] MEDS: lisinopriL 20 MG TAB PO SCH (09:24)
[2022-10-27] MEDS: CEFEPIME 2 GM in NA CHLORIDE 0.9% 100 ML IV SCH ×2 (09:24→20:26)
[2022-10-27] MEDS: PANTOPRAZOLE 40MG TABLET PO SCH ×2 (09:24→17:28)
[2022-10-27] MEDS ORDERED: Magnesium Sulfate 2gm IVPB 2 G/50 ML BAG IV ONE ×2 (09:39→17:43)
--- NOTE | 2022-10-27 11:15 | P.PN ---
Subjective Date of Service: 10/27/22 Chief Complaint: Bilateral heel cellulitis\ulcers Subjective: No new changes, Improving s/p debridement of bilateral heel ulcers 10/26. Pt sitting in bed, not in distress, breathing comfortably on room air. Family at bedside. No complaints at this time. No acute events reported overnight. Review of Systems 10-point ROS is otherwise unremarkable Musculoskeletal: Foot Pain (bilateral feet, s/p debridement of bilateral diabetic foot ulcers) Physical Examination - Vital Signs Temperature: 98.5 F Blood Pressure: 147/61 Pulse: 85 Respirations: 14 Pulse Ox (%): 94 - Physical Exam General: Alert, In no apparent distress, Oriented x3 HEENT: Atraumatic, Normocephalic, PERRLA Neck: Supple, JVD not distended Respiratory: Clear to auscultation bilaterally, Normal air movement Cardiovascular: No edema, Normal pulses Gastrointestinal: Normal bowel sounds, Soft and benign, Non-distended Musculoskeletal: No clubbing, No swelling Integumentary: No rashes, Diabetic ulcer (bilateral heels. s/p debridement, dressing clean dry and intact) Neurological: Normal speech, Normal tone, Sensation intact, Normal affect - Studies Laboratory Data - Reviewed Microbiology Data - Reviewed Imagings Data: - Reviewed Medications List Reviewed: Yes Assessment And Plan - Plan Problem List DM2 HTN Hypothyroid Pressure Injury/Diabetic foot ulcer of bilateral heels Sciatica Cellulitis Anemia Moderate PCM Bilateral Heel Diabetic Ulcer / Cellulitis - MRI of left and right ankle with no evidence of osteomyelitis per MRI report - General surgery on case - s/p debridement of bilateral heel diabetic ulcerations 10/26 - Wound cultures pending - On Cefepime and Vancomycin (started 10/26) Leukocytosis (WBC 21.9) Afebrile Blood cultures 10/25: No growth Recommendations - Continue Cefepime and Vancomycin for now. Awaiting wound culture results, will adjust antibiotics as appropriate. - Antibiotics x 2 weeks duration - Offload pressure on bilateral heels and turn patient Q2H. Barrier cream to sacrum. - Continue wound care per surgery team - Monitor WBC and fever trends - Strict blood glucose control. ID will follow up and monitor patient closely. Case discussed with Ra Carter
[2022-10-27] MEDS: VANCOMYCIN 1.75 GM in NA CHLORIDE 0.9% 500 ML IVPB SCH (12:01)
--- NOTE | 2022-10-27 18:22 | P.PN ---
Subjective Date of Service: 10/27/22 Chief Complaint: Bilateral heel cellulitis\\ulcers POD # 1 from debridement of bilateral heel ulcers. He reports that he feels well this morning and that his pain is well controlled. He denies any chest pain, palpitations, or shortness of breath. Plan to work with PT. Review of Systems 10-point ROS is otherwise unremarkable General: Weakness (generalized) Musculoskeletal: Foot Pain (bilateral heels) Physical Examination - Vital Signs Temperature: 98.5 F Blood Pressure: 147/61 Pulse: 85 Respirations: 14 Pulse Ox (%): 94 - Physical Exam General: Alert, In no apparent distress, Oriented x3 HEENT: Atraumatic, Mucous membr. moist/pink, Sclerae nonicteric Neck: JVD not distended Respiratory: Clear to auscultation bilaterally, Normal air movement Cardiovascular: No edema, Regular rate/rhythm, Normal S1 S2, No gallops, No rubs, No murmurs Gastrointestinal: Normal bowel sounds, Soft and benign, Non-distended, No tenderness, No rebound, No guarding Musculoskeletal: No clubbing Integumentary: No rashes, Other (bilateral heel wounds wrapped in clean surgical dressing) - Studies Medications List Reviewed: Yes Assessment And Plan - Plan # Sepsis likely secondary to Infected Left Heel Pressure Ulcer (unstageable) - POA # Concomitant Steroid-Induced Leukocytosis # Sacral Pressure Ulcer (Stage I) - POA # Right Heel Pressure Ulcer (Stage I) - POA He met sepsis criteria based on HR > 90 bpm and WBC > 12,000, and the suspected source is an infected heel pressure ulcer. - General Surgery consulted and spoke with Dr. Whitfield - recommendations appreciated - S/P debridement of bilateral foot ulcers - Consult PT - Radiology: - Left foot x-ray = "large calcaneal spurs are present. Mild atherosclerosis. No evidence of osteomyelitis. No acute fracture evident." - MRI right ankle = "no evidence of osteomyelitis involving the right ankle." - MRI left ankle = "no evidence of osteomyelitis at the left ankle." - Bilateral lower extremity arterial ultrasound = "monophasic waveforms within the bilateral posterior tibial and dorsalis pedis arteries consistent with at least mild hemodynamically significant stenoses." - Bilateral lower extremity Doppler = "no DVT in either lower extremity." - Sepsis order set was initiated - Initial Lactate was 1.9 - Blood cultures drawn before antibiotics were given - Broad spectrum antibiotics started: Vancomycin + Cefepime - In regards to fluids: - 30 mL/kg of IV fluids was not administered given SBP > 90, MAP > 65, lactic acid < 4 # Hyperglycemia in Type II Diabetes Mellitus # Hyponatremia due to Hyperglycemia - Hgb A1c = 6.7 % - Continue home linagliptin, glipizide - Correction scale insulin # Hypertension - Resume home amlodipine, lisinopril - PRN hydralazine for SBP > 160 mmHg # Hypothyroidism - Hold home levothyroxine # Benign Prostatic Hyperplasia - Continue home tamsulosin # Gout - Continue home allopurinol # Gastroesophageal Reflux Disease - Continue home pantoprazole # Hypomagnesemia - Replace as needed # Obesity - BMI 33.7 kg/m2 - Lifestyle modifications - Follow-up with PCP Fredo Kent M.D.
[2022-10-27] MEDS: INSULIN GLARGINE 100 UNIT/ML SQ SCH (20:27)
[2022-10-27] MEDS ORDERED: POLYETHYL GLY 3350 17 GM/DOSE PO ONE (20:59)
[2022-10-28] MEDS ORDERED: MORPHINE 2 MG/ML SYR IV ONE (00:23)
[2022-10-28 03:27] LABS: Hematocrit 28.9 % (39.6-49.0); MCV 89.9 fL (80-100); MPV 7.7 fL (7.6-11.3); RBC Red Blood Cell Count 3.21 M/uL (4.33-5.43)
[2022-10-28 03:37] LABS: Magnesium 1.7 mg/dL (1.6-2.4); Potassium 3.9 mEq/L (3.5-5.1)
[2022-10-28] MEDS: VANCOMYCIN 1.75 GM in NA CHLORIDE 0.9% 500 ML IVPB SCH (06:17)
[2022-10-28] MEDS: LEVOTHYROXINE SOD 0.1 MG TAB PO SCH (06:17)
[2022-10-28] MEDS: HYDROCODONE/APAP 10/325 TAB PO PRN ×3 (06:17→21:32)
[2022-10-28] MEDS: INSULIN -REGULAR HUMAN 50 UNIT/0.5 ML ML SQ SCH ×4 (07:30→21:00)
[2022-10-28] MEDS: INSULIN LISPRO 100 UNIT/1 ML SQ SCH ×3 (08:00→17:26)
[2022-10-28] MEDS: PANTOPRAZOLE 40MG TABLET PO SCH ×2 (08:08→17:26)
[2022-10-28] MEDS: glipiZIDE 5 MG TAB PO SCH ×2 (08:23→17:26)
[2022-10-28] MEDS: AMLODIPINE 10 MG TAB PO SCH (08:23)
[2022-10-28] MEDS: allopurinoL 100 MG TAB PO SCH (08:24)
[2022-10-28] MEDS: lisinopriL 20 MG TAB PO SCH (08:25)
[2022-10-28] MEDS: TAMSULOSIN 0.4 MG SR CAP PO SCH ×2 (08:25→21:31)
[2022-10-28] MEDS ORDERED: MAGNESIUM SULFATE 1 gm IVPB 1 GM/100 ML BAG IV ONE (09:00)
[2022-10-28] MEDS: Linagliptin [Tradjenta] 5 MG Tablet PO SCH (09:00)
[2022-10-28] MEDS ORDERED: POTASSIUM CL SA 10 MEQ TAB PO ONE (09:00)
[2022-10-28] MEDS: CEFEPIME 2 GM in NA CHLORIDE 0.9% 100 ML IV SCH ×2 (09:36→21:33)
--- NOTE | 2022-10-28 13:55 | P.PN ---
Subjective Date of Service: 10/28/22 Chief Complaint: Bilateral heel cellulitis\\ulcers POD # 2 from debridement of bilateral heel ulcers. He reports no concerns this morning. He is eager to work with PT. He denies any chest pain, palpitations, or shortness of breath. Review of Systems 10-point ROS is otherwise unremarkable Musculoskeletal: Leg Pain (left heel) Physical Examination - Vital Signs Temperature: 98 F Blood Pressure: 140/59 Pulse: 73 Respirations: 16 Pulse Ox (%): 96 - Studies Medications List Reviewed: Yes Assessment And Plan - Plan - Physical Exam General: Alert, In no apparent distress, Oriented x3 HEENT: Atraumatic, Mucous membr. moist/pink, Sclerae nonicteric Neck: JVD not distended Respiratory: Clear to auscultation bilaterally, Normal air movement Cardiovascular: No edema, Regular rate/rhythm, No murmurs Gastrointestinal: Normal bowel sounds, Soft, Non-distended, No tenderness Musculoskeletal: No clubbing Integumentary: No rashes, Other (bilateral heel wounds wrapped in clean surgical dressing) # Sepsis likely secondary to Infected Left Heel Pressure Ulcer (unstageable) - POA # Concomitant Steroid-Induced Leukocytosis # Sacral Pressure Ulcer (Stage I) - POA # Right Heel Pressure Ulcer (Stage I) - POA He met sepsis criteria based on HR > 90 bpm and WBC > 12,000, and the suspected source is an infected heel pressure ulcer. - General Surgery consulted and spoke with Dr. Whitfield - recommendations appreciated - S/P debridement of bilateral foot ulcers - Consult PT - may require continued services post-discharge - Radiology: - Left foot x-ray = "large calcaneal spurs are present. Mild atherosclerosis. No evidence of osteomyelitis. No acute fracture evident." - MRI right ankle = "no evidence of osteomyelitis involving the right ankle." - MRI left ankle = "no evidence of osteomyelitis at the left ankle." - Bilateral lower extremity arterial ultrasound = "monophasic waveforms within the bilateral posterior tibial and dorsalis pedis arteries consistent with at least mild hemodynamically significant stenoses." - Bilateral lower extremity Doppler = "no DVT in either lower extremity." - Sepsis order set was initiated - Initial Lactate was 1.9 - Blood cultures drawn before antibiotics were given - Broad spectrum antibiotics started: Vancomycin + Cefepime - In regards to fluids: - 30 mL/kg of IV fluids was not administered given SBP > 90, MAP > 65, lactic acid < 4 # Hyperglycemia in Type II Diabetes Mellitus # Hyponatremia due to Hyperglycemia - Hgb A1c = 6.7 % - Continue home linagliptin, glipizide - Correction scale insulin # Hypertension - Resume home amlodipine, lisinopril - PRN hydralazine for SBP > 160 mmHg # Hypothyroidism - Hold home levothyroxine # Benign Prostatic Hyperplasia - Continue home tamsulosin # Gout - Continue home allopurinol # Gastroesophageal Reflux Disease - Continue home pantoprazole # Hypomagnesemia - Replace as needed # Obesity - BMI 33.7 kg/m2 - Lifestyle modifications - Follow-up with PCP Fredo Kent M.D.
[2022-10-28] MEDS ORDERED: POLYETHYL GLY 3350 17 GM/DOSE PO ONE (15:28)
[2022-10-28] MEDS: DOCUSATE NA 100 MG CAP PO SCH ×2 (17:26→21:31)
[2022-10-28] MEDS: INSULIN GLARGINE 100 UNIT/ML SQ SCH (21:00)
[2022-10-29] MEDS: MORPHINE 2 MG/ML SYR IV PRN ×2 (00:41→18:58)
[2022-10-29 03:19] LABS: Hematocrit 27.8 % (39.6-49.0); MCV 90.6 fL (80-100); MPV 8.2 fL (7.6-11.3); RBC Red Blood Cell Count 3.07 M/uL (4.33-5.43)
[2022-10-29 03:38] LABS: Magnesium 1.6 mg/dL (1.6-2.4); Potassium 4.6 mEq/L (3.5-5.1)
[2022-10-29] MEDS: HYDROCODONE/APAP 10/325 TAB PO PRN ×3 (05:47→22:10)
[2022-10-29] MEDS: LEVOTHYROXINE SOD 0.1 MG TAB PO SCH (05:47)
[2022-10-29] MEDS ORDERED: MAGNESIUM SULFATE 1 gm IVPB 1 GM/100 ML BAG IV ONE (06:00)
[2022-10-29] MEDS: Linagliptin [Tradjenta] 5 MG Tablet PO SCH (09:00)
[2022-10-29] MEDS: lisinopriL 20 MG TAB PO SCH (09:02)
[2022-10-29] MEDS: allopurinoL 100 MG TAB PO SCH (09:02)
[2022-10-29] MEDS: TAMSULOSIN 0.4 MG SR CAP PO SCH ×2 (09:02→22:11)
[2022-10-29] MEDS: glipiZIDE 5 MG TAB PO SCH ×2 (09:03→16:10)
[2022-10-29] MEDS: DOCUSATE NA 100 MG CAP PO SCH ×2 (09:03→22:11)
[2022-10-29] MEDS: PANTOPRAZOLE 40MG TABLET PO SCH ×2 (09:03→16:11)
[2022-10-29] MEDS: AMLODIPINE 10 MG TAB PO SCH (09:03)
[2022-10-29] MEDS: INSULIN LISPRO 100 UNIT/1 ML SQ SCH ×3 (09:04→16:12)
[2022-10-29] MEDS: INSULIN -REGULAR HUMAN 50 UNIT/0.5 ML ML SQ SCH ×4 (09:04→21:00)
[2022-10-29] MEDS: CEFEPIME 2 GM in NA CHLORIDE 0.9% 100 ML IV SCH ×2 (09:04→22:10)
--- NOTE | 2022-10-29 14:49 | P.PN ---
Subjective Date of Service: 10/29/22 Chief Complaint: Bilateral heel cellulitis\\ulcers POD # 3 from debridement of bilateral heel ulcers. He reports no concerns this morning. He worked well with PT. His WBC is up-trending. He denies any chest pain, palpitations, or shortness of breath. Review of Systems 10-point ROS is otherwise unremarkable General: Weakness (generalized) Musculoskeletal: Leg Pain (left heel) Physical Examination - Vital Signs Temperature: 98.2 F Blood Pressure: 107/57 Pulse: 99 Respirations: 14 Pulse Ox (%): 96 - Studies Medications List Reviewed: Yes Assessment And Plan - Plan - Physical Exam General: Alert, In no apparent distress, Oriented x3 HEENT: Atraumatic, Mucous membr. moist/pink, Sclerae nonicteric Neck: JVD not distended Respiratory: Clear to auscultation bilaterally, Normal air movement Cardiovascular: No edema, Regular rate/rhythm, No murmurs Gastrointestinal: Normal bowel sounds, Soft, Non-distended, No tenderness Musculoskeletal: No clubbing Integumentary: No rashes, Other (bilateral heel wounds wrapped in clean surgical dressing) # Sepsis likely secondary to Infected Left Heel Pressure Ulcer (unstageable) - POA # Concomitant Steroid-Induced Leukocytosis # Sacral Pressure Ulcer (Stage I) - POA # Right Heel Pressure Ulcer (Stage I) - POA He met sepsis criteria based on HR > 90 bpm and WBC > 12,000, and the suspected source is an infected heel pressure ulcer. - General Surgery consulted and spoke with Dr. Whitfield - recommendations appreciated - S/P debridement of bilateral foot ulcers - Consult PT - they are interested in inpatient rehab, we will see how he does with therapy over the next 24-48 hours - Radiology: - Left foot x-ray = "large calcaneal spurs are present. Mild atherosclerosis. No evidence of osteomyelitis. No acute fracture evident." - MRI right ankle = "no evidence of osteomyelitis involving the right ankle." - MRI left ankle = "no evidence of osteomyelitis at the left ankle." - Bilateral lower extremity arterial ultrasound = "monophasic waveforms within the bilateral posterior tibial and dorsalis pedis arteries consistent with at least mild hemodynamically significant stenoses." - Bilateral lower extremity Doppler = "no DVT in either lower extremity." - Sepsis order set was initiated - Initial Lactate was 1.9 - Blood cultures drawn before antibiotics were given - Broad spectrum antibiotics started: Vancomycin + Cefepime - In regards to fluids: - 30 mL/kg of IV fluids was not administered given SBP > 90, MAP > 65, lactic acid < 4 # Hyperglycemia in Type II Diabetes Mellitus # Hyponatremia due to Hyperglycemia - Hgb A1c = 6.7 % - Continue home linagliptin, glipizide - Correction scale insulin # Hypertension - Resume home amlodipine, lisinopril - PRN hydralazine for SBP > 160 mmHg # Hypothyroidism - Hold home levothyroxine # Benign Prostatic Hyperplasia - Continue home tamsulosin # Gout - Continue home allopurinol # Gastroesophageal Reflux Disease - Continue home pantoprazole # Hypomagnesemia - Replace as needed # Obesity - BMI 33.7 kg/m2 - Lifestyle modifications - Follow-up with PCP Fredo Kent M.D.
[2022-10-29] MEDS: VANCOMYCIN 1.75 GM in NA CHLORIDE 0.9% 500 ML IVPB SCH (17:09)
[2022-10-29] MEDS ORDERED: VANCOMYCIN 1.5 GM in NA CHLORIDE 0.9% 500 ML IVPB SCH (18:00)
[2022-10-29] MEDS: INSULIN GLARGINE 100 UNIT/ML SQ SCH (22:11)
[2022-10-30] MEDS: MORPHINE 2 MG/ML SYR IV PRN ×3 (01:36→15:54)
[2022-10-30 04:11] LABS: Absolute Lymphocytes (CBC) 2.8 K/uL (0.7-4.9); Hematocrit 27.8 % (39.6-49.0); Lymphocytes % 17.7 % (15.3-44.8); MCV 89.9 fL (80-100); MPV 8.6 fL (7.6-11.3); RBC Red Blood Cell Count 3.09 M/uL (4.33-5.43)
[2022-10-30 04:30] LABS: Magnesium 1.7 mg/dL (1.6-2.4); Potassium 4.3 mEq/L (3.5-5.1)
[2022-10-30] MEDS: HYDROCODONE/APAP 10/325 TAB PO PRN ×2 (05:27→20:14)
[2022-10-30] MEDS: LEVOTHYROXINE SOD 0.1 MG TAB PO SCH (05:28)
[2022-10-30] MEDS: INSULIN -REGULAR HUMAN 50 UNIT/0.5 ML ML SQ SCH ×4 (07:30→20:14)
[2022-10-30] MEDS: DOCUSATE NA 100 MG CAP PO SCH ×2 (08:46→20:13)
[2022-10-30] MEDS: AMLODIPINE 10 MG TAB PO SCH (08:46)
[2022-10-30] MEDS: PANTOPRAZOLE 40MG TABLET PO SCH ×2 (08:46→17:10)
[2022-10-30] MEDS: TAMSULOSIN 0.4 MG SR CAP PO SCH ×2 (08:46→20:13)
[2022-10-30] MEDS: allopurinoL 100 MG TAB PO SCH (08:46)
[2022-10-30] MEDS: lisinopriL 20 MG TAB PO SCH (08:46)
[2022-10-30] MEDS: glipiZIDE 5 MG TAB PO SCH ×2 (08:46→17:10)
[2022-10-30] MEDS: CEFEPIME 2 GM in NA CHLORIDE 0.9% 100 ML IV SCH ×2 (08:46→20:13)
[2022-10-30] MEDS: Linagliptin [Tradjenta] 5 MG Tablet PO SCH (08:47)
[2022-10-30] MEDS: INSULIN LISPRO 100 UNIT/1 ML SQ SCH ×3 (08:47→16:22)
[2022-10-30] MEDS ORDERED: MAGNESIUM SULFATE 1 gm IVPB 1 GM/100 ML BAG IV ONE (09:00)
--- NOTE | 2022-10-30 09:58 | P.PN ---
Date of Service: 10/30/22 Chief Complaint: Bilateral heel cellulitis\ulcers Subjective: Patient sitting up in bed, on RA. A&Ox3. In good spirits. No complaints at this time. Afebrile. Family at bedside. Physical Examination - Vital Signs Temp Pulse Resp BP Pulse Ox 98.7 F 101 H 17 146/61 H 96 10/30/22 08:00 10/30/22 08:46 10/30/22 09:17 10/30/22 08:46 10/30/22 09:17 - Physical Exam General: Alert, In no apparent distress, Oriented x3 HEENT: Atraumatic, Normocephalic, PERRLA Neck: Supple, JVD not distended Respiratory: Clear to auscultation bilaterally, Normal air movement Cardiovascular: No edema, Normal pulses Gastrointestinal: Normal bowel sounds, Soft and benign, Non-distended, no tenderness Musculoskeletal: No clubbing, No swelling Integumentary: No rashes; Bilateral heel ulcers with areas of eschar noted. Neurological: Normal speech, Normal tone, Sensation intact, Normal affect - Studies Laboratory Data - Reviewed Microbiology Data - Reviewed Imagings Data: - Reviewed Medications List Reviewed: Yes Assessment And Plan Problem List DM2 HTN Hypothyroidism Bilateral Heel Ulcers, diabetic vs pressure ulcer Sciatica Anemia Moderate PCM Bilateral Heel Ulcer with Necrosis - MRI of left and right ankle with no evidence of osteomyelitis per MRI report - General surgery on case - s/p debridement of bilateral heel ulcers and necrosis 10/26 - On Cefepime and Vancomycin (started 10/26) Leukocytosis slightly improving (WBC 15.6) Afebrile Blood cultures 10/25: No growth Recommendations - Obtain wound cultures of bilateral heel ulcers - Continue Cefepime and Vancomycin for now. - Antibiotics x 2 weeks duration - Continue wound care per surgery team - Offload pressure on bilateral heels - Barrier cream to sacrum and turn patient Q2H. - Monitor WBC and fever trends - Strict blood glucose control. ID will follow up and monitor patient closely. Case discussed with Ra Carter
[2022-10-30] MEDS: VANCOMYCIN 1.75 GM in NA CHLORIDE 0.9% 500 ML IVPB SCH (17:10)
--- NOTE | 2022-10-30 17:53 | P.PN ---
Subjective Date of Service: 10/30/22 Chief Complaint: Bilateral heel cellulitis\\ulcers POD # 4 from debridement of bilateral heel ulcers. He reports no concerns this morning. He reports that is pain is well-controlled. His wounds do not appear to be healing well. Will obtain Cardiology consult to evaluate for peripheral vascular disease. He denies any chest pain, palpitations, or shortness of breath. Review of Systems 10-point ROS is otherwise unremarkable Musculoskeletal: Leg Pain (left heel) Physical Examination - Vital Signs Temperature: 98.9 F Blood Pressure: 132/61 Pulse: 91 Respirations: 17 Pulse Ox (%): 96 - Studies Microbiology Data (last 24 hrs): 10/25/22 15:53 Blood - Blood Aerobic Blood Culture - Final No growth in 5 days. 10/25/22 15:53 Blood - Blood Anaerobic Blood Culture - Final No growth in 5 days. 10/25/22 15:47 Blood - Blood Aerobic Blood Culture - Final No growth in 5 days. 10/25/22 15:47 Blood - Blood Anaerobic Blood Culture - Final No growth in 5 days. Medications List Reviewed: Yes Assessment And Plan - Plan - Physical Exam General: Alert, In no apparent distress, Oriented x3 HEENT: Atraumatic, Mucous membr. moist/pink, Sclerae nonicteric Neck: JVD not distended Respiratory: Clear to auscultation bilaterally, Normal air movement Cardiovascular: No edema, Regular rate/rhythm, No murmurs Gastrointestinal: Normal bowel sounds, Soft, Non-distended, No tenderness Musculoskeletal: No clubbing Integumentary: No rashes, Other (bilateral heel wounds wrapped in clean surgical dressing) - pictures of heel show open wound, with minimal healing # Sepsis likely secondary to Infected Left Heel Pressure Ulcer (unstageable) - POA # Concomitant Steroid-Induced Leukocytosis # Sacral Pressure Ulcer (Stage I) - POA # Right Heel Pressure Ulcer (Stage I) - POA He met sepsis criteria based on HR > 90 bpm and WBC > 12,000, and the suspected source is an infected heel pressure ulcer. - General Surgery consulted and spoke with Dr. Whitfield - recommendations appreciated - S/P debridement of bilateral foot ulcers - Consult PT - recs appreciated - Cardiology consulted and spoke with Dr. Slaughter - recommendations appreciated - He will evaluate for peripheral vascular disease - Infectious Diseases consulted and spoke with Dr. Lee - recommendations appreciated - Radiology: - Left foot x-ray = "large calcaneal spurs are present. Mild atherosclerosis. No evidence of osteomyelitis. No acute fracture evident." - MRI right ankle = "no evidence of osteomyelitis involving the right ankle." - MRI left ankle = "no evidence of osteomyelitis at the left ankle." - Bilateral lower extremity arterial ultrasound = "monophasic waveforms within the bilateral posterior tibial and dorsalis pedis arteries consistent with at least mild hemodynamically significant stenoses." - Bilateral lower extremity Doppler = "no DVT in either lower extremity." - Sepsis order set was initiated - Initial Lactate was 1.9 - Blood cultures drawn before antibiotics were given - Broad spectrum antibiotics started: Vancomycin + Cefepime - In regards to fluids: - 30 mL/kg of IV fluids was not administered given SBP > 90, MAP > 65, lactic acid < 4 # Hyperglycemia in Type II Diabetes Mellitus # Hyponatremia due to Hyperglycemia - Hgb A1c = 6.7 % - Continue home linagliptin, glipizide - Correction scale insulin # Hypertension - Resume home amlodipine, lisinopril - PRN hydralazine for SBP > 160 mmHg # Hypothyroidism - Hold home levothyroxine # Benign Prostatic Hyperplasia - Continue home tamsulosin # Gout - Continue home allopurinol # Gastroesophageal Reflux Disease - Continue home pantoprazole # Hypomagnesemia - Replace as needed # Obesity - BMI 33.7 kg/m2 - Lifestyle modifications - Follow-up with PCP Fredo Kent M.D. Physician Review: Patient Assessed, Agree with Above Assessment and Plan
[2022-10-30] MEDS: INSULIN GLARGINE 100 UNIT/ML SQ SCH (20:14)
--- NOTE | 2022-10-30 23:11 | PN ---
I was asked by Dr. Kent to give my opinion regarding his peripheral arterial disease. Mr. Lucas is 77, has been seen and followed and debrided by Dr. Whitfield for what appears to be sever e peripheral arterial disease distally in the feet. He is diabetic, has hypertension, has hypothyroi dism. No previous cardiac history that is known. He does have a creatinine of 0.86. He has a hemog lobin of 9.6. Came in with cellulitis and heel ulcers. He takes Norvasc, Flomax, lisinopril, and gl ipizide at home. Family was concerned about his distal extremities and the fear that he may lose his feet. Arterial Doppler was reviewed in detail. There was what appears to be monophasic flow in the iliac arteries, SFA, popliteal, and the dorsalis pedis and posterior tibial on both sides was very s mall with monophasic flow and what appeared to be mild diffuse stenosis. I felt like the patient is not a candidate for angiography. It may be reasonable for the patient to get on low-dose Eliquis 2.5 mg twice a day and possibly Plavix. I think that would help with the circulation certainly in the l ciro run. This was discussed with the daughter and Dr. Kent and I think I left it up to the family t hat if they feel they need to get a vascular surgery opinion and that he can certainly be transferred to [place]. JONATHAN/DONA Voice ID: [id number] Report ID: [id number]
[2022-10-31] MEDS: MORPHINE 2 MG/ML SYR IV PRN (00:17)
[2022-10-31 03:42] LABS: Absolute Lymphocytes (CBC) 2.8 K/uL (0.7-4.9); Hematocrit 27.1 % (39.6-49.0); Lymphocytes % 18.6 % (15.3-44.8); MCV 90.2 fL (80-100); MPV 8.7 fL (7.6-11.3)
[2022-10-31 03:44] VITALS: O2SAT 95
[2022-10-31 03:59] LABS: Magnesium 1.5 mg/dL (1.6-2.4); Potassium 4.3 mEq/L (3.5-5.1)
[2022-10-31] MEDS: HYDROCODONE/APAP 10/325 TAB PO PRN (06:12)
[2022-10-31] MEDS: LEVOTHYROXINE SOD 0.1 MG TAB PO SCH (06:12)
[2022-10-31] MEDS ORDERED: Magnesium Sulfate 2gm IVPB 2 G/50 ML BAG IV ONE (07:00)
[2022-10-31] MEDS: INSULIN -REGULAR HUMAN 50 UNIT/0.5 ML ML SQ SCH ×2 (07:30→12:35)
[2022-10-31] MEDS: INSULIN LISPRO 100 UNIT/1 ML SQ SCH ×2 (08:00→12:36)
[2022-10-31] MEDS: AMLODIPINE 10 MG TAB PO SCH (08:47)
[2022-10-31] MEDS: PANTOPRAZOLE 40MG TABLET PO SCH (08:47)
[2022-10-31] MEDS: DOCUSATE NA 100 MG CAP PO SCH (08:47)
[2022-10-31] MEDS: glipiZIDE 5 MG TAB PO SCH (08:47)
[2022-10-31] MEDS: CEFEPIME 2 GM in NA CHLORIDE 0.9% 100 ML IV SCH (08:47)
[2022-10-31] MEDS: lisinopriL 20 MG TAB PO SCH (08:47)
[2022-10-31] MEDS: TAMSULOSIN 0.4 MG SR CAP PO SCH (08:47)
[2022-10-31] MEDS: allopurinoL 100 MG TAB PO SCH (08:48)
[2022-10-31] MEDS: Linagliptin [Tradjenta] 5 MG Tablet PO SCH (08:48)
--- NOTE | 2022-10-31 10:23 | P.PN ---
Date of Service: 10/31/22 Chief Complaint: Bilateral heel cellulitis\ulcers Subjective: No new changes Patient sitting in chair with legs elevated. A&Ox3. Family at bedside. No complaints at this time. Family has requested patient to be transferred to [facility]. Physical Examination - Vital Signs Temp Pulse Resp BP Pulse Ox 99.1 F 98 H 18 146/74 H 96 10/31/22 08:00 10/31/22 08:47 10/31/22 08:00 10/31/22 08:47 10/31/22 08:00 - Physical Exam General: Alert, In no apparent distress, Oriented x3 HEENT: Atraumatic, Normocephalic, PERRLA Neck: Supple, JVD not distended Respiratory: Clear to auscultation bilaterally, Normal air movement Cardiovascular: No edema, Normal pulses Gastrointestinal: Normal bowel sounds, Soft and benign, Non-distended, no tenderness Musculoskeletal: No clubbing, No swelling Integumentary: No rashes; Bilateral heel ulcers with eschar noted. Neurological: Normal speech, Normal tone, Sensation intact, Normal affect - Studies Laboratory Data - Reviewed Microbiology Data - Reviewed Imagings Data: - Reviewed Medications List Reviewed: Yes Assessment And Plan Problem List DM2 HTN Hypothyroidism Bilateral Heel Ulcers, diabetic vs pressure ulcer Sciatica Anemia Moderate PCM Bilateral Heel Ulcer with Necrosis - MRI of left and right ankle with no evidence of osteomyelitis per MRI report - General surgery on case - s/p debridement of bilateral heel ulcers and necrosis 10/26 - On Cefepime and Vancomycin (started 10/26) Blood cultures 10/25: No growth to date Leukocytosis slightly improving (WBC 15.6 -> 14.8 - on 10/31) Afebrile Recommendations - Obtain wound cultures of bilateral heel ulcers - Continue Cefepime and Vancomycin for now. - Antibiotics x 2 weeks duration - Continue wound care per surgery team. Patient may need second debridement of bilateral heel ulcers. - Offload pressure on bilateral heels - Barrier cream to sacrum and turn patient Q2H. - Monitor WBC and fever trends - Strict blood glucose control. ID will follow up and monitor patient closely. Case discussed with Ra Carter
[2022-10-31 12:46] VITALS: BP 135/61; TEMP 98.5
--- NOTE | 2022-10-31 14:24 | P.DS ---
Admission Date: 10/25/22 Discharge Date: 10/31/22 Disposition: ROUTINE DISCHARGE Discharge Condition: GOOD Reason for Admission: Bilateral heel cellulitis\\ulcers Consultations: 1. General Surgery 2. Cardiology 3. Infectious Diseases Procedures: - 10/26/2022 - Debridement of Bilateral Heel Ulcers Hospital Course: DIAGNOSES: # Sepsis likely secondary to Infected Left Heel Pressure Ulcer (unstageable) - POA # Concomitant Steroid-Induced Leukocytosis # Sacral Pressure Ulcer (Stage I) - POA # Right Heel Pressure Ulcer (Stage I) - POA # Hyperglycemia in Type II Diabetes Mellitus # Hyponatremia due to Hyperglycemia # Hypertension # Hypothyroidism # Benign Prostatic Hyperplasia # Gout # Gastroesophageal Reflux Disease # Hypomagnesemia # Obesity - BMI 33.7 kg/m2 HOSPITAL COURSE: Mr. Anam Lucas is a pleasant 77 year old male with a past medical history significant for type 2 diabetes mellitus, hypertension, hypothyroidism, benign prostatic hyperplasia, gout, and gastroesophageal reflux disease who was admitted to the [facility] on 10/25/2022 for multiple pressure ulcers (sacral and bilateral heels). He was admitted to the Medicine service. Upon further evaluation, he was found to have sepsis secondary to an infected left heel pressure ulcer. His left foot x-ray revealed, "large calcaneal spurs are present. Mild atherosclerosis. No evidence of osteomyelitis. No acute fracture evident." His MRI right ankle revealed, "no evidence of osteomyelitis involving the right ankle." His MRI left ankle revealed, "no evidence of osteomyelitis at the left ankle." His bilateral lower extremity arterial ultrasound revealed, "monophasic waveforms within the bilateral posterior tibial and dorsalis pedis arteries consistent with at least mild hemodynamically significant stenoses." His bilateral lower extremity Doppler revealed, "no DVT in either lower extremity." General Surgery was consulted and he was evaluated by Dr. Whitfield. On 10/26/2022, he underwent debridement of his bilateral foot ulcers. Infectious Diseases was consulted and he was evaluated by Dr. Lee. It was recommended that he receive 14 days of vancomycin + cefepime (end date: 11/08/2022). Post-operatively, it was noted that his wounds were not healing as well as expected. Cardiology was consulted and he was evaluated by Dr. Slaughter. Per Dr. Slaughter, he has distal peripheral vascular disease. He recommended transfer to a facility with Vascular Surgery capabilities. At family's request, transfer was initiated to [facility]. Doc-to-doc was completed with Dr. Chuyita Whitfield ([facility] Vascular Surgery), who has generously accepted to consult on his case. Doc-to-doc was completed with Dr. Usama Chan ([facility] Hospitalist), who has generously accepted him for transfer. On 10/31/2022, he was seen on morning rounds and deemed medically stable for transfer. He was given the opportunity to ask questions and reported no further questions. Furthermore, all questions were answered to the best of my ability. A copy of this discharge summary will be sent to the above providers to facilitate continuity of care. Today, I personally spent 35 minutes on his case, of which greater than 50% of the time was spent in patient education, counseling, and coordination of care as described above. - Physical Exam General: Alert, In no apparent distress, Oriented x3 HEENT: Atraumatic, Mucous membr. moist/pink, Sclerae nonicteric Neck: JVD not distended Respiratory: Clear to auscultation bilaterally, Normal air movement Cardiovascular: No edema, Regular rate/rhythm, No murmurs Gastrointestinal: Normal bowel sounds, Soft, Non-distended, No tenderness Musculoskeletal: No clubbing Integumentary: No rashes, Other (bilateral heel wounds wrapped in clean surgical dressing) - pictures of heel show open wound, with minimal healing Vital Signs/Physical Exam: Temp Pulse Resp BP Pulse Ox 98.5 F 87 18 135/61 96 10/31/22 12:00 10/31/22 12:00 10/31/22 12:00 10/31/22 12:00 10/31/22 12:00 Laboratory Data at Discharge: WBC 14.80 thou/uL (4.3-10.9) H 10/31/22 02:33 Hgb 9.3 g/dL (13.6-17.9) L 10/31/22 02:33 Hct 27.1 % (39.6-49.0) L 10/31/22 02:33 Plt Count 202 thou/uL (152-406) 10/31/22 02:33 PT 10.7 SECONDS (9.5-12.5) 10/25/22 15:54 INR 0.97 10/25/22 15:54 APTT Cancelled 10/25/22 17:13 Sodium 133 mEq/L (136-145) L 10/31/22 02:33 Potassium 4.3 mEq/L (3.5-5.1) 10/31/22 02:33 BUN 14 mg/dL (7-18) 10/31/22 02:33 Creatinine 0.76 mg/dL (0.70-1.30) 10/31/22 02:33 Glucose 66 mg/dL (74-106) L 10/31/22 02:33 Phosphorus 3.8 mg/dL (2.5-4.9) 10/31/22 02:33 Magnesium 1.5 mg/dL (1.6-2.4) L 10/31/22 02:33 Total Bilirubin 0.2 mg/dL (0.2-1.0) 10/26/22 02:21 AST 12 U/L (15-37) L 10/26/22 02:21 ALT 30 U/L (16-61) 10/26/22 02:21 Alkaline Phosphatase 105 U/L (45-117) 10/26/22 02:21 Home Medications: Metformin HCl 1,000 mg PO BID #60 tab 05/12/22 Gabapentin 300 mg PO TID 10/12/22 Levothyroxine [Synthroid*] 100 mcg PO DAILY 10/12/22 Linagliptin [Tradjenta] 5 mg PO DAILY 10/12/22 Lisinopril [Zestril] 20 mg PO DAILY 10/12/22 Tamsulosin [Flomax*] 0.4 mg PO BID 10/12/22 Tizanidine [Zanaflex*] 4 mg PO BID 10/12/22 Tramadol HCl [Ultram] 50 mg PO Q6HR 10/12/22 glipiZIDE [Glipizide] 5 mg PO BID 10/12/22 Allopurinol 200 mg PO DAILY #60 tab 10/20/22 Amlodipine [Norvasc*] 10 mg PO DAILY #30 tab 10/20/22 Colchicine 0.6 mg PO BID #10 tab 10/20/22 Ensure High Protein 273 ml PO TID #90 can 10/20/22 Harry [Harry*] 1 pkt PO BID #60 packet 10/20/22 Magnesium Oxide [Mag 0X*] 400 mg PO BID #60 tab 10/20/22 Pantoprazole [Protonix Tab*] 40 mg PO BIDAC #60 tab 10/20/22 predniSONE [Prednisone*] 20 mg PO DAILY #35 tab 10/20/22 Acetaminophen [Tylenol*] 650 mg PO Q6H PRN tab 10/31/22 Docusate [Colace Cap*] 100 mg PO BID cap 10/31/22 Hydrocodone 10/APAP 325 [Bonham 10/325*] 1 tab PO Q6H PRN tab 10/31/22 Insulin Glargine,Hum.rec.anlog [Semglee] 20 unit SQ BEDTIME ml 10/31/22 Insulin Lispro [Humalog*] 5 unit SQ TIDWM ml 10/31/22 Physician Discharge Instructions: - Continue care at [facility] Diet: AHA Activity: Non-weight bearing (bilateral heels) Followup: Lei Singh DO [Primary Care Provider] - Phani Whitfield MD [ACTIVE - CAN ADMIT] - CHUYITA HERNANDEZ [OUTSIDE PHYSICIAN] - Time spent managing pt's care (in minutes): 35
== END 2022-10-31 14:40 | disposition home or self-care (01) | DRG 854 ==
LOC: ER 15:09 → ERHOLD 17:08 → 2ND 19:27
PROVIDERS: ADMIT Internal Medicine; ATTEND Internal Medicine
PROC: 0JBQ0ZZ Excision of Right Foot Subcutaneous Tissue and Fascia, Open Approach (ICD-10-PCS; 2022-10-26)
PROC: 0JBR0ZZ Excision of Left Foot Subcutaneous Tissue and Fascia, Open Approach (ICD-10-PCS; principal; 2022-10-26 15:00)
DX: A41.9 Sepsis, unspecified organism (principal); E87.1 Hypo-osmolality and hyponatremia; L97.429 Non-pressure chronic ulcer of left heel and midfoot with unspecified severity; L03.116 Cellulitis of left lower limb; L03.115 Cellulitis of right lower limb; E11.621 Type 2 diabetes mellitus with foot ulcer; E11.65 Type 2 diabetes mellitus with hyperglycemia; E11.51 Type 2 diabetes mellitus with diabetic peripheral angiopathy without gangrene; E11.40 Type 2 diabetes mellitus with diabetic neuropathy, unspecified; L89.620 Pressure ulcer of left heel, unstageable; L89.611 Pressure ulcer of right heel, stage 1; L89.151 Pressure ulcer of sacral region, stage 1; E03.9 Hypothyroidism, unspecified; I10 Essential (primary) hypertension; M10.9 Gout, unspecified; E78.5 Hyperlipidemia, unspecified; E66.9 Obesity, unspecified; N40.0 Benign prostatic hyperplasia without lower urinary tract symptoms; E83.42 Hypomagnesemia; K21.9 Gastro-esophageal reflux disease without esophagitis; T38.0X5A Adverse effect of glucocorticoids and synthetic analogues, initial encounter; Z79.84 Long term (current) use of oral hypoglycemic drugs; Z90.49 Acquired absence of other specified parts of digestive tract; Z79.52 Long term (current) use of systemic steroids; Z68.34 Body mass index [BMI] 34.0-34.9, adult; Z79.899 Other long term (current) drug therapy; Z79.890 Hormone replacement therapy
CPT/HCPCS: 36415; 80048; 80053; 80202; 82947; 83605; 83735; 84100; 84439; 84443; 85025; 85610; 85730; 87040; 88304; 93925; 93970; 94760; 96372; 96374; 96375; 97110; 97116; 97161; 97530; 99285; J0690; J0692; J1170; J1815; J2001; J2270; J2405; J2704; J3010; J3475; J3590; J7030; J7040; J7050

== ENCOUNTER 2022-12-25 06:58 | Emergency (ER) | payer OTHER ==
--- OUTSIDE RECORDS SUMMARY | 2022-12-25 07:05 | XMS REPORT | Continuity of Care Document ---
:1945 Author Organization [facility] t Address [address] [facility] [address] [place] [id number] Care Team Providers Name Role Phone Thompson Thayer MD Primary Care Physician [id number] Attending Clinician Unavailable Chepe Gallagher Attending Clinician Unavailable Rogelio RENNER, Elicia Ward Attending Clinician [phone] [place] Caruso DO Attending Clinician Yairel Blake MD Attending Clinician Geovanni RENNER, Kathy Roberts Attending Clinician Sunshine Pinon DPM Attending Clinician ALLY ALEX Attending Clinician Unavailable Katherin Ramesh Anavella Attending Clinician UnaARGENTINA Barber Attending Clinician Unavailable KUMAR HENDERSON Attending Clinician Unavailable Sanford RENNER, Wei Attending Clinician Quintin Rausch MD Attending Clinician Primo Briscoe MD Attending Clinician STACIE WALL Attending Clinician Unavailable Emily NICHOLE, Stacie Whitten Attending Clinician [phone] [place] [place] Attending Clinician Unavailable THOMPSON THAYER Attending Clinician Unavailable MICHAEL GARG Attending Clinician Unavailable [id number] Admitting Clinician Unavailable ARGENTINA CARUSO Admitting Clinician Unavailable MD ELICIA SAAVEDRA Admitting Clinician Unavailable GUILHERME HILTON KRISTOFER Admitting Clinician Unavailable Margret Ramesh Anav Admitting Clinician Unavailable ARGENTINA PEDRAZA Admitting Clinician Unavailable KUMAR HENDERSON Admitting Clinician Unavailable PRIMO BRISCOE Admitting Clinician Unavailable Payers Payer Name Policy Type Policy Number Effective Date Expiration Date S mau 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 5-16 [facility] mellitus mellitus 00:00: Medica l with with 00 Center peripheral peripheral artery artery disease disease Lumbar Lumbar Disease Active [facility] radiculopa radiculopa 4-08 st thy thy 00:00: Hospita 00 l No known No known Disease Metho di active active st problems problems Hospit a l Allergies, Adverse Reactions, Alerts Allergy Allergy Status Severity Reaction(s) Onset Inactive Treating Comm ents Source Name Type Date Date Clinician NKA Allergy Active [facility] 11-18 13:40: 51 NKA Allergy Active [facility] 11-18 13:40: 51 No Known DA Active [facility] Drug 12-17 Allergie 00:00: s 00 Unable DA Active [facility] to 12-16 Assess 00:00: 00 NO KNOWN Allergy Active [facility] Social History Social Habit Start Date Stop Date Quantity Comments Source Gender identity Confucianism [facility] Sexual orientation [facility] Alcohol intake 2022-11-29 2022-11-29 Current Confucianism 00:00:00 00:00:00 non-drinker of Hospital alcohol (finding) History of Social 2022-11-29 2022-11-[address] function 00:00:00 00:00:00 Hospital Exposure to 2022-10-21 2022-10-[address] [facility] SARS-CoV-2 (event) 00:00:00 16:25:00 [facility] Tobacco use and 2022-09-16 2022-09-[address] [facility] [facility]ika kes exposure 00:00:00 00:00:00 [facility] Sex Assigned At [birth year] Confucianism 00:00:00 00:00:00 Hospital Smoking Status Start Date Stop Date Source Never smoked tobacco Confucianism [facility]spital Medications Ordered Filled Start Stop Current Ordering Indication Dosage Frequency Signature Comments Components Source Medication Medication Date Date Medication? Clinician (SIG) Name Name lisinopriL Yes 10mg Q.5D Take 1 [facility]o di (PRINIVIL) 6-15 tablet (10 st 10 mg 20:23: mg total) Hospita tablet 04 by mouth 2 l (two) times a day. allopurinoL 0 Yes 100mg Q.5D Take 1 Met hodi (ZYLOPRIM) 6-[address] 100 MG 20:23: (100 mg Hospita tablet 04 total) by l mouth 2 (two) times a day. amLODIPine 2022-0 Yes 5mg QD Take 1 Metho di (NORVASC) 5 6-15 tablet (5 st mg tablet 20:23: mg total) Hos [place] 04 by mouth l daily. aspirin 2022-0 Yes 81mg QD Take 1 [facility]i (ECOTRIN) 6-15 tablet (81 st 81 MG 20:23: mg total) Hospita enteric 04 by mouth l coated daily. tablet atorvastati 2022-0 Yes 40mg QD Take 1 Meth efe n (LIPITOR) 6-15 tablet (40 st 40 mg 20:23: mg total) Hospita tablet 04 by mouth l daily. clopidogreL 2022-0 Yes 75mg QD Take 1 Meth efe (PLAVIX) 75 6-15 tablet (75 st mg tablet 20:23: mg total) Hos [place] 04 by mouth l daily. zinc 2022-0 Yes 1{capsu QD Take 1 [facility] sulfate 6-15 le} capsule by st (ZINCATE) 20:23: mouth Hospita 50 mg zinc 04 daily. l (220 mg) capsule magnesium 2022-0 Yes 400mg Q.5D Take 1 Metho di oxide 6-[address] (MAG-OX) 20:23: (400 mg Hospit a 400 mg 04 total) by l (241.3 mg mouth 2 magnesium) (two) tablet times a day. furosemide 2022-0 Yes 20mg QD Take 1 Metho di (LASIX) 20 6-15 tablet (20 st mg tablet 20:23: mg total) [facility] [place] 04 by mouth l daily. glipiZIDE 2022-0 Yes 5mg Q.5D Take 1 Method i (GLUCOTROL) 6-15 tablet (5 st 5 MG tablet 20:23: mg total) H ospita 04 by mouth 2 l (two) times a day before meals. pantoprazol 2022-0 Yes 40mg Q.5D Take 1 Meth efe e 6-15 tablet (40 st (PROTONIX) 20:23: mg total) Ho spita 40 MG EC 04 by mouth 2 l tablet (two) times a day. tamsulosin 2022-0 Yes .4mg Q.5D Take 1 Metho di (FLOMAX) 6-[address] 0.4 mg 20:23: (0.4 mg Hospita capsule 04 total) by l mouth 2 (two) times a day. gabapentin 2022-0 Yes 300mg Q.[id number] Take 1 [facility] (NEURONTIN) 6-[id number] 300 mg 20:23: 3D (300 mg Hospita capsule 04 total) by l mouth 3 (three) times a day as needed. traMADoL 2022-0 Yes [id number] 50mg Q6H Take 1 Method i (ULTRAM) 50 6-15 tablet (50 st mg tablet 20:23: mg total) [facility] [place] 04 by mouth l every 6 (six) hours as needed for moderate pain .acute pain. oxyCODone-a 2022-0 Yes [id number] 1{tbl} Q8H Take 1 M ethodi cetaminophe 6-[address] n 20:23: mouth Hospita (PERCOCET) 04 every 8 l 10-325 mg (eight) per tablet hours as needed for moderate pain .acute pain. Max Daily Amount: 3 tablets metFORMIN 2023-0 Yes 1000mg Q.5D Take 1 Meth efe (GLUCOPHAGE 6-[address] ) 1,000 mg 20:23: (1,000 mg Ho spita tablet 39 total) by l mouth 2 (two) times a day with meals. linaGLIPtin 2023-0 Yes 5mg QD Take 1 Meth efe (TRADJENTA) 6-14 tablet (5 st 5 mg tablet 20:23: mg total) H ospita 39 by mouth l daily with breakfast. levothyroxi 3-0 Yes 100ug QD Take 1 Met hodi ne 6-[address] (SYNTHROID) 20:23: (100 mcg Ho spita 100 mcg 39 total) by l tablet mouth daily. ciprofloxac 3-0 2023- No 500mg Q.5D Take 1 Me thodi in (CIPRO) 11-[address] 500 MG 00:00: 04:59 (500 mg Hospita tablet 00 :00 total) by l mouth 2 (two) times a day for 14 days. doxycycline 2023-0 2023- No 100mg Q.5D Take 1 Me thodi (VIBRA-TABS 11-[address] ) 100 MG 00:00: 04:59 (100 mg Hospi ta tablet 00 :00 total) by l mouth 2 (two) times a day for 14 days. lisinopriL 2023-0 2023- No 20mg QD Take 1 Meth efe (PRINIVIL) 11-26 tablet (20 st 20 mg 15:21: 00:00 mg total) Hospit a tablet 23 :00 by mouth l daily. tiZANidine 2023-0 Yes 4mg Q.5D Take 1 [facility] (ZANAFLEX) 5-16 tablet (4 Luke s 4 MG tablet 16:54: mg total) M edical 10 by mouth Center in the morning and 1 tablet (4 mg total) before bedtime. traMADoL 2023-0 Yes 50mg Take [address] (ULTRAM) 50 5-16 tablet (50 Mallika kes mg tablet 16:54: mg total) Med ical 10 by mouth Center every 6 (six) hours as needed for Pain. Max Daily Amount: 200 mg insulin 2022-0 Yes 30U QD Inject 30 [facility] glargine 5-16 Units [facility] (LANTUS, 16:54: subcutaneo Med ical SEMGLEE) 10 usly Center 100 unit/mL nightly. (3 mL) InPn furosemide 2022-0 Yes 20mg QD Take 1 [facility] t (LASIX) 20 5-16 tablet (20 Ceasar es MG tablet 16:54: mg total) Med ical 10 by mouth Center in the morning. metFORMIN 2022-0 Yes 1000mg Take [address] (GLUCOPHAGE 5-16 tablet [facility] ) 1000 MG 16:48: (1,000 mg Med ical tablet 53 total) by Center mouth 2 (two) times daily with breakfast and dinner. gabapentin 2022-0 Yes 300mg Q.[id number] Take [address] (NEURONTIN) 5-16 [id number] capsule [facility] 300 MG 16:48: 3D (300 mg Medical capsule 53 total) by Center mouth in the morning and 1 capsule (300 mg total) at noon and 1 capsule (300 mg total) in the evening. linaGLIPtin 2022-0 Yes 5mg QD Take [address] (TRADJENTA) 5-16 tablet (5 Ceasar es 5 mg tablet 16:48: mg total) M edical 53 by mouth Center in the morning. levothyroxi 2022-0 Yes 100ug Take [address] ne 5-16 tablet [facility]ukes (SYNTHROID, 16:48: (100 mcg Me dical LEVOTHROID) 53 total) by [facility] ter 100 MCG mouth tablet Every morning on an empty stomach. lisinopriL 2022-0 Yes 20mg Q.5D Take 1 [facility] t (PRINIVIL,Z 5-16 tablet (20 Mallika kes ESTRIL) 20 16:48: mg total) Me dical MG tablet 53 by mouth Center in the morning and 1 tablet (20 mg total) before bedtime. tamsulosin 2022-0 Yes .4mg QD Take 1 [facility] t (FLOMAX) 5-16 capsule [facility] 0.4 mg Cap 16:48: (0.4 mg Medi amos 24 hr 53 total) by Center capsule mouth in the morning. glipiZIDE 2023-0 Yes 5mg Take [address] (GLUCOTROL) 5-16 tablet (5 Ceasar es 5 MG tablet 16:48: mg total) M edical 53 by mouth Center in the morning and 1 tablet (5 mg total) in the evening. Take before meals. methocarbam 2023-0 Yes 500mg Q.5D Take [address] oL 5-16 tablet [facility] (ROBAXIN) 16:48: (500 mg Medic al 500 MG 53 total) by Center tablet mouth in the morning and 1 tablet (500 mg total) before bedtime. allopurinoL 3-0 Yes 200mg QD Take [address] (ZYLOPRIM) 5-16 tablets [facility] 100 MG 16:48: (200 mg Medical tablet 53 total) by Center mouth in the morning. amLODIPine 3-0 Yes 10mg QD Take 1 [facility] (NORVASC) 5-16 tablet (10 Luke s 10 MG 16:48: mg total) Medical tablet 53 by mouth Center in the morning. colchicine 2023-0 Yes .6mg Q.5D Take 1 [facility] (COLCRYS) 5-16 tablet [facility] 0.6 mg 16:48: (0.6 mg Medical tablet 53 total) by Center mouth in the morning and 1 tablet (0.6 mg total) before bedtime. food 2022-0 Yes 273mL Q.[id number] Take [address] supplemt, -16 [id number] mLs by Mallika escalante lactose-red 16:48: 3D mouth in Me dical uced 53 the Center (Ensure morning High and 273 Protein) mLs at Liqd noon and 273 mLs in the evening. arginine-gl 3-0 Yes 1{packe QD Take [address] utamine-amos 5-16 t} packet by Ceasar will cium HMB 16:48: mouth in Medic al (Harry) 53 the Center 7-7-1.5 morning. gram PwPk magnesium 2023-0 Yes 400mg Q.5D Take 1 [facility] oxide 5-16 tablet [facility] (MAG-OX) 16:48: (400 mg Medica l 400 mg 53 total) by Center (241.3 mg mouth in magnesium) the tablet morning and 1 tablet (400 mg total) before bedtime. pantoprazol 2023-0 Yes 40mg Q.5D Take [address] e 5-16 tablet (40 [facility] (PROTONIX) 16:48: mg total) Me dical 40 MG 53 by mouth Center tablet in the morning and 1 tablet (40 mg total) before bedtime. predniSONE Yes 20mg QD Take 1 [facility] (DELTASONE) 5-16 tablet (20 Mallika kes 20 MG 16:48: mg total) Medical tablet 53 by mouth Center in the morning. tiZANidine 2022- No tizanidine [facility] (ZANAFLEX) -16 05-16 2 mg [facility] 2 MG tablet 16:37: 00:00 tablet Med ical 37 :00 Center acetaminoph 2022- No acetaminop [facility] en-codeine -16 05-16 hen 300 [facility] (TYLENOL 16:37: 00:00 mg-codeine Me dical #3) 300-30 24 :00 30 mg Center mg per tablet tablet methocarbam 2022- Yes 500mg Q6H Take 1 [...] spasms for up to 90 days. traMADoL 2022- Yes [id number] 50mg Q6H Take 1 Metho di (ULTRAM) 50 4-25 05-06 tablet (50 s t mg tablet 00:00: 04:59 mg total) Ho spita 00 :00 by mouth l every 6 (six) hours as needed for moderate pain for up to 10 days .acute pain. traMADoL 2022- No [id number] 50mg Q6H Take 1 Metho di (ULTRAM) 50 4-25 05-06 tablet (50 s t mg tablet 00:00: 04:59 mg total) Ho spita 00 :00 by mouth l every 6 (six) hours as needed for moderate pain for up to 10 days .acute pain. traMADoL 2022- No [id number] 50mg Q6H Take 1 Metho di (ULTRAM) 50 4-25 05-06 tablet (50 s t mg tablet 00:00: 04:59 mg total) Ho spita 00 :00 by mouth l every 6 (six) hours as needed for moderate pain for up to 10 days .acute pain. traMADoL 2022- No [id number] 50mg Q6H Take 1 Metho di (ULTRAM) 50 4-25 05-06 tablet (50 s t mg tablet 00:00: 04:59 mg total) Ho spita 00 :00 by mouth l every 6 (six) hours as needed for moderate pain for up to 10 days .acute pain. traMADoL 2022- No [id number] 50mg Q6H Take 1 Metho di (ULTRAM) [...] 30 days. l packet polyethylen 2023-0 2023- No 17g QD Take 17 g Methodi e glycol 09-[address] (MIRALAX) 00:00: 04:59 daily for Ho spita 17 gram 00 :00 30 days. l packet polyethylen 2022- No 17g QD Take 17 g Methodi e glycol 09-[address] (MIRALAX) 00:00: 04:59 daily for Ho spita 17 gram 00 :00 30 days. l packet gabapentin 2022- Yes [id number] 300mg Q.[id number] Take 1 [facility]i (NEURONTIN) 09-[id number] 300 mg 00:00: 04:59 3D (300 mg Hospita capsule 00 :00 total) by l mouth 3 (three) times a day for 30 days. gabapentin 2022- Yes [id number] 300mg Q.[id number] Take 1 [facility] (NEURONTIN) 09-[id number] 300 mg 00:00: 04:59 3D (300 mg Hospita capsule 00 :00 total) by l mouth 3 (three) times a day for 30 days. gabapentin 2022- Yes [id number] 300mg Q.[id number] Take 1 [facility] (NEURONTIN) 09-[id number] 300 mg 00:00: 04:59 3D (300 mg Hospita capsule 00 :00 total) by l mouth 3 (three) times a day for 30 days. gabapentin 2022- No [id number] 300mg Q.[id number] Take 1 [facility] (NEURONTIN) 09-[id number] 300 mg 00:00: 04:59 3D (300 mg Hospita capsule 00 :00 total) by l mouth 3 (three) times a day for 30 days. gabapentin 2022- No [id number] 300mg Q.[id number] Take 1 [facility] (NEURONTIN) 09-[id number] 300 mg 00:00: 04:59 3D (300 mg Hospita capsule 00 :00 total) by l mouth 3 (three) times a day for 30 days. methocarbam 2022- No [id number] 500mg Q.[id number] Take 1 Methodi oL 09-[id number] (ROBAXIN) 00:00: 04:59 3D (500 mg Hosp jose 500 MG 00 :00 total) by l tablet mouth 3 (three) times a day as needed for muscle spasms for up to 10 days. methocarbam 2022- No [id number] 500mg Q.[id number] Take 1 Methodi oL 09-[id number] (ROBAXIN) 00:00: 04:59 3D (500 mg Hosp jose 500 MG 00 :00 total) by l tablet mouth 3 (three) times a day as needed for muscle spasms for up to 10 days. methocarbam 2022- No [id number] 500mg Q.97692303 Take 1 Methodi oL 09-[id number] (ROBAXIN) 00:00: 04:59 3D (500 mg Hosp jose 500 MG 00 :00 total) by l tablet mouth 3 (three) times a day as needed for muscle spasms for up to 10 days. methocarbam 2022- No [id number] 500mg Q.[id number] Take 1 Methodi oL 09-[id number] (ROBAXIN) 00:00: 04:59 3D (500 mg Hosp jose 500 MG 00 :00 total) by l tablet mouth 3 (three) times a day as needed for muscle spasms for up to 10 days. methocarbam 2022- No [id number] 500mg Q.03310249 Take 1 Methodi oL 09-[id number] (ROBAXIN) 00:00: 04:59 3D (500 mg Hosp jose 500 MG 00 :00 total) by l tablet mouth 3 (three) times a day as needed for muscle spasms for up to 10 days. acetaminoph 2022- No [id number] 1{tbl} Q6H Take 1 Methodi en-codeine 09-26 [...] mg 00 :00 l tablet acetaminoph 2022-0 2022- [place] [id number] 1{tbl} Q6H Take 1 Methodi en-codeine 09-26 [...] mg 00 :00 l tablet acetaminoph 2022-0 2022- [place] [id number] 1{tbl} Q6H Take 1 Methodi en-codeine 09-[address] (TYLENOL 00:00: 04:59 mouth Hospita WITH 00 :00 every 6 l CODEINE #3) (six) 300-30 mg hours as per tablet needed for severe pain for up to 5 days .acute pain. methylPREDN 2022-2022- No follow Met hodi ISolone 09-[address] (Medrol, 00:00: 04:59 directions Ho spita Conor,) 4 mg 00 :00 l tablet acetaminoph 2022-0 2022- No [id number] 1{tbl} Q6H Take 1 Methodi en-codeine 09-26 [...] mg 00 :00 l tablet acetaminoph 2022-0 2022- [place] [id number] 1{tbl} Q6H Take 1 Methodi en-codeine 09-[address] (TYLENOL 00:00: 04:59 mouth Hospita WITH 00 :00 every 6 l CODEINE #3) (six) 300-30 mg hours as per tablet needed for severe pain for up to 5 days .acute pain. methylPREDN 2022- No follow Met hodi ISolone 09-[address] (Medrol, 00:00: 04:59 directions Atilio Perdomo,) 4 mg 00 :00 l tablet acetaminoph Yes acetaminop [facility] en-codeine - hen 300 [facility] (TYLENOL 17:21: mg-codeine Med ical #3) 300-30 52 30 mg Center mg per tablet tablet tiZANidine Yes tizanidine [facility] (ZANAFLEX) - 2 mg [facility] 2 MG tablet 17:21: tablet [facility] [address] [place] acetaminoph [address] [facility] en-codeine - hen 300 [facility] (TYLENOL 17:21: mg-codeine Med ical #3) 300-30 52 30 mg Center mg per tablet tablet tiZANidine 0 Yes tizanidine [facility] (ZANAFLEX) 4- 2 mg [facility] 2 MG tablet 17:21: tablet [facility] [address] [place] acetaminoph 2022-[address] [facility] en-codeine - hen 300 [facility] (TYLENOL 17:21: mg-codeine Med ical #3) 300-30 52 30 mg Center mg per tablet tablet tiZANidine 0 Yes tizanidine [facility] (ZANAFLEX) - 2 mg [facility] 2 MG tablet 17:21: tablet [facility] 52 Center acetaminoph 2022-[address] [facility] en-codeine - hen 300 [facility] (TYLENOL 17:21: mg-codeine Med ical #3) 300-30 52 30 mg Center mg per tablet tablet tiZANidine 0 Yes tizanidine [facility] (ZANAFLEX) -01 2 mg [facility] 2 MG tablet 17:21: tablet [facility] [address] [place] lisinopril- 2022-0 2022- No lisinopril [facility] hydroCHLORO 09-16 [...] in the morning for 15 days. furosemide 2023-0 2023- No 20mg QD Take [address] (LASIX) 20 4- 04-16 tablet (20 Mallika kes MG tablet 00:00: 23:59 mg total) Me dical 00 :00 by mouth Center in the morning for 15 days. furosemide 2023-0 2023- No 20mg QD Take [address] (LASIX) 20 4- 04-16 tablet (20 Mallika kes MG tablet 00:00: 23:59 mg total) Me dical 00 :00 by mouth Center in the morning for 15 days. furosemide 2023-0 2023- No 20mg QD Take [address] (LASIX) 20 4- 04-16 tablet (20 Mallika kes MG tablet 00:00: 23:59 mg total) Me dical 00 :00 by mouth Center in the morning for 15 days. metFORMIN 2023-0 Yes 1000mg Q.5D Take 1 [...] (5 mg total) before bedtime. metFORMIN 2023-0 2023- No 1000mg Q.5D Take [address] (GLUCOPHAGE 3-16 05-16 tablet [facility] ) 1000 MG 00:00: 00:00 (1,000 mg Me dical tablet 00 :00 total) by Center mouth in the morning and 1 tablet (1,000 mg total) before bedtime. lisinopriL 2023-0 2023- No 20mg QD Take [address] (PRINIVIL,Z 3-16 05-16 tablet (20 L ukes ESTRIL) 20 00:00: 00:00 mg total) M edical MG tablet 00 :00 by mouth Center in the morning. glipiZIDE 2022-0 2022- No 5mg Q.5D Take 1 [facility] (GLUCOTROL) 3-16 05-16 tablet (5 Mallika kes 5 MG tablet 00:00: 00:00 mg total) Medical 00 :00 by mouth Center in the morning and 1 tablet (5 mg total) before bedtime. levothyroxi 2022-0 Yes 100ug QD Take [address] ne 3-15 tablet [facility] (SYNTHROID, 00:00: (100 mcg Me dical LEVOTHROID) 00 total) by [facility] ter 100 MCG mouth tablet every morning. levothyroxi 2022-0 Yes 100ug QD Take [address] ne 3-15 tablet [facility] (SYNTHROID, 00:00: (100 mcg Me dical LEVOTHROID) 00 total) by [facility] ter 100 MCG mouth tablet every morning. levothyroxi 2022-0 Yes 100ug QD Take [address] ne 3-15 tablet [facility] (SYNTHROID, 00:00: (100 mcg Me dical LEVOTHROID) 00 total) by [address] ter 100 MCG mouth tablet every morning. levothyroxi 2022-0 Yes 100ug QD Take [address] ne 3-15 tablet [facility] (SYNTHROID, 00:00: (100 mcg Me dical LEVOTHROID) 00 total) by [facility] ter 100 MCG mouth tablet every morning. levothyroxi 2022-0 2022- No 100ug QD Take [address] ne 3-15 05-16 tablet [facility] (SYNTHROID, 00:00: 00:00 (100 mcg M edical LEVOTHROID) 00 :00 total) by [facility] ter 100 MCG mouth [...] ion) for up to 2 doses. glycerin, 2022- No 1{suppo Q.5D Insert 1 Methodi adult, 730 06-11 sitory} suppositor st suppository 00:00: 00:00 y into the Hospita rectal 00 :00 rectum 2 l suppository (two) times a day as needed (constipat ion) for up to 2 doses. Immunizations Ordered Immunization Filled Immunization Date Status Commen ts Source Name Name [facility] COVID-19 MRNA 2020-09-23 Completed Meth odist VACCINATION 00:00:00 [facility] PFIZER COVID-19 MRNA 2020-09-23 Completed Meth odist VACCINATION 00:00:00 [facility] PFIZER COVID-19 MRNA 2020-09-23 Completed Meth odist VACCINATION 00:00:00 [facility] PFIZER COVID-19 MRNA 2020-09-23 Completed Meth odist VACCINATION 00:00:00 [facility] PFIZER COVID-19 MRNA 2020-09-23 Completed Meth odist VACCINATION 00:00:00 [facility] PFIZER COVID-19 MRNA 2020-09-23 Completed Meth odist VACCINATION 00:00:00 [facility] PFIZER COVID-19 MRNA 2020-09-23 Completed Meth odist VACCINATION 00:00:00 [facility] PFIZER COVID-19 MRNA 2020-09-23 Completed Meth odist VACCINATION 00:00:00 [facility] PFIZER COVID-19 MRNA 2020-09-02 Completed Meth odist VACCINATION 00:00:00 [facility] PFIZER COVID-19 MRNA 2020-09-02 Completed Meth odist VACCINATION 00:00:00 [facility] PFIZER COVID-19 MRNA 2020-09-02 Completed Meth odist VACCINATION 00:00:00 [facility] PFIZER COVID-19 MRNA 2020-09-02 Completed Meth odist VACCINATION 00:00:00 [facility] PFIZER COVID-19 MRNA 2020-09-02 Completed Meth odist VACCINATION 00:00:00 [facility] PFIZER COVID-19 MRNA 2020-09-02 Completed Meth odist VACCINATION 00:00:00 [facility] PFIZER COVID-19 MRNA 2020-09-02 Completed Meth odist VACCINATION 00:00:00 [facility] PFIZER COVID-19 MRNA 2020-09-02 Completed Meth odist VACCINATION 00:00:00 Hospital Vital Signs Vital Name Observation Time Observation Value Comments Source HEIGHT 2022-10-31 16:00:00 170.2 cm WEIGHT 2022-10-31 16:00:00 99.791 kg HEIGHT 2022-10-31 16:00:00 170.2 cm WEIGHT 2022-10-31 16:00:00 99.791 kg HEIGHT 2022-09-16 12:45:00 170.2 cm WEIGHT 2022-09-16 12:45:00 95.709 kg HEIGHT 2022-09-16 12:45:00 170.2 cm WEIGHT 2022-09-16 12:45:00 95.709 kg Systolic blood 2022-11-29 22:44:27 145 mm[Hg] Method [facility] pressure Diastolic blood 2022-11-29 22:44:27 72 mm[Hg] [facility] pressure Heart rate 2022-11-29 22:44:27 62 /min [facility] Body temperature 2022-11-29 22:44:27 36.89 Deepthi [facility] Respiratory rate 2022-11-29 22:44:27 16 /min [facility] Oxygen saturation in 2022-11-29 22:44:27 99 /min [facility] Arterial blood by Pulse oximetry Body weight 2022-11-29 09:14:51 95.8 kg [facility] BMI 2022-11-29 09:14:51 33.08 kg/m2 [facility] Body height 2022-11-26 16:48:00 170.2 cm [facility] Systolic blood 2022-10-31 16:00:00 144 mm[Hg] [facility] Diastolic blood 2022-10-31 16:00:00 67 mm[Hg] [facility] Heart rate 2022-10-31 16:00:00 71 /min [facility] Body temperature 2022-10-31 16:00:00 36.89 Deepthi [facility] Respiratory rate 2022-10-31 16:00:00 18 /min [facility] Body height 2022-10-31 16:00:00 170.2 cm [facility] Body weight 2022-10-31 16:00:00 99.791 kg [facility] BMI 2022-10-31 16:00:00 34.46 kg/m2 [facility] Oxygen saturation in 2022-10-31 16:00:00 97 /min [facility] Arterial blood by Medical Ce nter Pulse oximetry Systolic blood 2022-09-26 16:49:49 152 mm[Hg] Method [facility] pressure Diastolic blood 2022-09-26 16:49:49 68 mm[Hg] [facility] pressure Heart rate 2022-09-26 16:49:49 65 /min [facility] Body temperature 2022-09-26 16:49:49 36.22 Deepthi [facility] Respiratory rate 2022-09-26 16:49:49 16 /min [facility] Oxygen saturation in 2022-09-26 16:49:49 98 /min [facility] Arterial blood by Pulse oximetry Body height 2022-09-25 13:47:00 170.2 cm [facility] Body weight 2022-09-25 13:47:00 95.255 kg [facility] [facility] BMI 2022-09-25 13:47:00 32.89 kg/m2 [facility] Systolic blood 2022-09-16 17:20:00 171 mm[Hg] [facility] Diastolic blood 2022-09-16 17:20:00 79 mm[Hg] [facility] Heart rate 2022-09-16 17:20:00 67 /min [facility] Respiratory rate 2022-09-16 17:20:00 18 /min [facility] Oxygen saturation in 2022-09-16 17:20:00 99 /min [facility] Arterial blood by Medical Ce nter Pulse oximetry Body temperature 2022-09-16 12:45:00 36.89 Deepthi [facility] Body height 2022-09-16 12:45:00 170.2 cm [facility] Body weight 2022-09-16 12:45:00 95.709 kg [facility] BMI 2022-09-16 12:45:00 33.05 kg/m2 [facility] Procedures Procedure Date / Time Performing Clinician Source Performed FUSION, ANT AND POST 2022-12-15 12:15:00 [facility] SPINAL COLUMN, LUMBAR, ANTERIOR AND POSTERIOR APPROACHES, W LUMBAR LAMINECTOMY FUSION, ANT AND POST 2022-12-04 12:15:00 [facility] SPINAL COLUMN, LUMBAR, ANTERIOR AND POSTERIOR APPROACHES, W LUMBAR LAMINECTOMY HEMOGLOBIN & HEMATOCRIT 2022-11-29 23:24:00 [facility] POC GLUCOSE 2022-11-29 22:08:[address] [facility] POC GLUCOSE 2022-11-29 16:44:[address] [facility] ABO AND RH CONFIRMATION 2022-11-29 15:30:00 [facility] BY PROTOCOL POC GLUCOSE 2022-11-29 12:17:[address] [facility] HEMOGLOBIN & HEMATOCRIT 2022-11-29 11:04:00 [facility] POC GLUCOSE 2022-11-29 02:44:[address] [facility] CBC WITH PLATELET AND 2022-11-29 01:43:00 [facility] DIFFERENTIAL CONSULT TO OSTOMY CARE 2022-11-28 19:45:09 [facility] NURSE ANAEROBIC CULTURE 2022-11-28 18:30:00 [facility] FUNGUS CULTURE 2022-11-28 18:30:00 [facility] [employer] STAIN 2022-11-28 18:30:00 Zi [facility] spital FUNGUS SMEAR 2022-11-28 18:30:00 [facility] TISSUE CULTURE 2022-11-28 18:30:00 Zi [facility] AFB CULTURE 2022-11-28 18:30:00 [facility] INCISION AND DRAINAGE, 2022-11-28 18:07:00 [facility] FOOT POC GLUCOSE 2022-11-28 15:38:[address] [facility] TYPE AND SCREEN 2022-11-28 12:34:00 [facility] PREPARE RBC 2022-11-28 12:34:[address] [facility] POC GLUCOSE 2022-11-28 12:13:[address] [facility] ECG 12-LEAD 2022-11-28 09:58:56 [facility] BASIC METABOLIC PANEL 2022-11-28 09:12:00 [facility] CBC HEMOGRAM 2022-11-28 09:12:[address] [facility] MAGNESIUM LEVEL 2022-11-28 09:12:[address] [facility] ESTIMATED GFR 2022-11-28 09:12:[address] [facility] MRI FOOT WO CONTRAST LEFT 2022-11-28 01:49:42 Alonso Olvera [facility] POC GLUCOSE 2022-11-28 00:14:[address] [facility] POC GLUCOSE 2022-11-27 21:43:[address] [facility] POC GLUCOSE 2022-11-27 16:36:[address] [facility] CBC WITH PLATELET AND 2022-11-27 13:45:00 [facility] DIFFERENTIAL SEDIMENTATION RATE 2022-11-27 13:45:[address] [facility] C-REACTIVE PROTEIN 2022-11-27 13:45:[address] [facility] POC GLUCOSE 2022-11-27 12:25:[address] [facility] BASIC METABOLIC PANEL 2022-11-27 10:30:00 [facility] MAGNESIUM LEVEL 2022-11-27 10:30:[address] [facility] PHOSPHORUS LEVEL 2022-11-27 10:30:00 [facility] ESTIMATED GFR 2022-11-27 10:30:[address] [facility] TROPONIN T 2022-11-27 03:29:[address] [facility] POC GLUCOSE 2022-11-27 00:40:[address] [facility] URINE CULTURE 2022-11-26 23:35:[address] [facility] URINALYSIS SCREEN AND 2022-11-26 23:35:00 [facility] MICROSCOPY, WITH REFLEX TO CULTURE TROPONIN T 2022-11-26 22:25:[address] [facility] PROCALCITONIN 2022-11-26 22:25:[address] [facility] POC GLUCOSE 2022-11-26 22:07:[address] [facility] CT HEAD WO CONTRAST 2022-11-26 18:57:12 Elicia Saavedra [facility] ECG 12-LEAD 2022-11-26 18:40:11 [facility], INFLUENZA A&B, 2022-11-26 18:14:00 Elicia Saavedra [facility] AND RSV QUALITATIVE Ed RT-PCR BLOOD CULTURE, AEROBIC & 2022-11-26 18:10:00 Elicia Saavedra [facility] ANAEROBIC Ed CBC WITH PLATELET AND 2022-11-26 18:10:00 Elicia Saavedra [facility] DIFFERENTIAL Ed COMPREHENSIVE METABOLIC 2022-11-26 18:10:00 Elicia Saavedra [facility] PANEL Ed TROPONIN T 2022-11-26 18:10:[address] [facility] NT-PROBNP 2022-11-26 18:10:00 [facility] LACTIC ACID LEVEL, SEPSIS 2022-11-26 18:10:[address] [facility] - NOW AND REPEAT 2X EVERY 3 HOURS VENOUS BLOOD GAS 2022-11-26 18:10:00 Elicia Saavedra [facility] Ed ESTIMATED GFR 2022-11-26 18:10:00 Elicia Saavedra [facility] Ed XR ANKLE 3+ VW RIGHT 2022-11-26 18:00:41 Elicia Saavedra [facility] Ed XR ANKLE 3+ VW LEFT 2022-11-26 17:59:53 Elicia Saavedra [facility] Ed ECG ED PRELIMINARY 2022-11-26 17:38:55 [facility] INTER[facility] Ed XR CHEST 1 VW 2022-11-26 17:38:00 [facility] W/[facility]T COUNT & AUTO 2022-10-31 18:10:00 Argentina Pedraza [facility] DIFFERENTIAL [facility] BASIC METABOLIC PANEL 2022-10-31 18:10:00 Argentina Pedraza [facility] MAGNESIUM 2022-10-31 18:10:00 Rocio [facility] PHOSPHORUS 2022-10-31 18:10:00 Carolyn [facility] VANCOMYCIN LEVEL, RANDOM 2022-10-31 18:10:00 Rocio [facility] HEMOGLOBIN A1C 2022-10-31 18:10:00 Rocio [facility] IRON, TIBC, % SAT. 2022-10-31 18:10:00 Rocio [facility] (WITHOUT FERRITIN) [facility] LIPID PANEL 2022-10-31 18:10:00 [facility] HEPATIC FUNCTION PANEL 2022-10-31 18:10:00 [facility] URIC ACID 2022-10-31 18:10:00 [facility] CBC W/PLT COUNT & AUTO 2022-10-31 18:10:00 Rocio [facility] DIFFERENTIAL [facility] POCT-GLUCOSE METER 2022-10-31 16:37:[address] [facility] POC GLUCOSE 2022-09-26 16:50:00 [facility] POC GLUCOSE 2022-09-26 12:43:00 [facility] BASIC METABOLIC PANEL 2022-09-26 09:47:00 Primo Briscoe [facility] CBC WITH PLATELET AND 2022-09-26 09:47:00 [facility] GFR 2022-09-26 09:47:00 [facility] POC GLUCOSE 2022-09-26 02:12:00 [facility] POC GLUCOSE 2022-09-26 01:21:00 [facility] POC GLUCOSE 2022-09-25 21:09:00 [facility] POC GLUCOSE 2022-09-25 17:06:00 [facility] IR EPIDURAL STEROID INJ 2022-09-25 15:07:00 Kam Elaine [facility] TRANSFORA LUMBAR LEFT (NERVE ROOT BLOCK) POC GLUCOSE 2022-09-25 12:26:00 [facility] BASIC METABOLIC PANEL 2022-09-25 09:44:00 [facility] WITH PLATELET AND 2022-09-25 09:44:00 [facility] HEMOGLOBIN A1C 2022-09-25 09:44:00 [facility] ESTIMATED GFR 2022-09-25 09:44:00 Primo Briscoe spital POC GLUCOSE 2022-09-25 02:59:00 [facility] POC GLUCOSE 2022-09-25 01:58:00 [facility] POC GLUCOSE 2022-09-24 20:52:00 Primo Briscoe spital POC GLUCOSE 2022-09-24 17:19:00 Primo Briscoe spital XR CERVICAL SPINE AP 2022-09-24 14:24:00 [facility] LATERAL FLEXION AND EXTENSION XR SPINE SCOLIOSIS 2-3 2022-09-24 14:23:00 [facility] VIEWS XR LUMBAR SPINE COMPLETE 2022-09-24 14:23:00 [facility] W BENDING XR SPINE SCOLIOSIS 2-3 2022-09-24 14:23:00 [facility] VIEWS MRI LUMBAR SPINE W WO 2022-09-24 11:08:00 Quintin Rausch [facility] CONTRAST MRI CERVICAL SPINE W WO 2022-09-24 10:37:00 Quintin Rausch [facility] CONTRAST CBC WITH PLATELET AND 2022-09-24 09:20:00 [facility] DIFFERENTIAL LIPID PANEL 2022-09-24 09:20:00 [facility] BASIC METABOLIC PANEL 2022-09-24 09:20:00 [facility] ESTIMATED GFR 2022-09-24 09:20:00 [facility] CBC WITH PLATELET AND 2022-09-24 01:40:00 Quintin Rausch [facility] DIFFERENTIAL COMPREHENSIVE METABOLIC 2022-09-24 01:40:00 Shalom, Quintin [facility] PANEL ESTIMATED GFR 2022-09-24 01:40:00 Quintin Rausch [facility] CT THORACIC SPINE WO 2022-09-24 00:59:36 Quintin Rausch [facility] CONTRAST CT CERVICAL SPINE WO 2022-09-24 00:58:27 Quintin Rausch [facility] CONTRAST CT LUMBAR SPINE WO 2022-09-24 00:58:07 Quintin Rausch [facility] CONTRAST VENOUS DOPPLER LEGS 2022-09-16 15:35:[address] [facility] BILATERAL [facility] XR SPINE LUMBAR COMPLETE 2022-09-16 13:34:00 Stacie Wall [facility] 4 VIEWS MIN [facility] TROPONIN I 2022-09-16 13:28:[address] [facility] CBC W/PLT COUNT & AUTO 2022-09-16 13:28:00 [facility] DIFFERENTIAL [facility] COMPREHENSIVE METABOLIC 2022-09-16 13:28:00 Stacie Wall [facility] PANEL [facility] B-TYPE NATRIURETIC FACTOR 2022-09-16 13:28:[address] [facility] URINALYSIS W/ REFLEX 2022-09-16 13:28:[address] [facility] URINE CULTURE [facility] CBC W/PLT COUNT & AUTO 2022-09-16 13:28:00 [facility] DIFFERENTIAL [facility] EKG-SCANNED 2022-09-16 00:00:00 ProviderYessi [facility] es [facility] Plan of Care Planned Activity Planned Date Details Comments Source Future Scheduled 2023-09-[address] [facility] (12+) [code = Tobacco Cessation Counseling and Screening (12+)] Future Scheduled 2023-09-[address] [facility] 00:00[facility]00 [facility] (12+) [code = Tobacco Cessation Counseling and Screening (12+)] Future Scheduled 2023-09-[address] [facility] Test 00:00:00 [facility] (12+) [code = Tobacco Cessation Counseling and Screening (12+)] Future Scheduled 2023-09-[address] [facility] Test 00:00:00 [facility] (12+) [code = Tobacco Cessation Counseling and Screening (12+)] Future Scheduled 2023-09-[address] [facility] Test 00:00:00 [facility] (12+) [code = Tobacco Cessation Counseling and Screening (12+)] Future Scheduled 2023-05-[address] [facility] 00:00[facility]00 [facility] (procedure) [code = [id number]] Future Scheduled 2023-02-[address] [facility] Test 00:00:00 (Season Ended) [code = Medic al Center INFLUENZA VACCINE (Season Ended)] Future Scheduled 2023-02-[address] [facility] Test 00:00:00 (Season Ended) [code = Medic al Center INFLUENZA VACCINE (Season Ended)] Future Scheduled 2023-02-[address] [facility] Test 00:00:00 (Season Ended) [code = Medic al Center INFLUENZA VACCINE (Season Ended)] Future Scheduled 2023-02-[address] [facility] Test 00:00:00 (Season Ended) [code = Medic al Center INFLUENZA VACCINE (Season Ended)] Future Scheduled 2023-02-[address] [facility] Test 00:00:00 (Season Ended) [code = Medic al Center INFLUENZA VACCINE (Season Ended)] Future Scheduled 2022-12-22 65[facility] 08:33:46 VACCINE (1 - PCV) [code = 65+ PNEUMOCOCCAL VACCINE (1 - PCV)] Future Scheduled 2022-12-22 [facility]ETES[facility] 08:33:46 EXAM [code = DIABETES: RETINAL EYE EXAM] Future Scheduled 2022-12-22 DIABETIC FOOT EXAM [facility] 08:33:46 [code = DIABETIC FOOT EXAM] Future Scheduled 2022-12-22 URINE MICROALBUMIN [facility] 08:33:46 [code = URINE MICROALBUMIN] Future Scheduled 2022-12-22 [facility] 08:33:46 (procedure) [code = [id number]] Future Scheduled 2022-12-22 SHINGLES VACCINES (1 [facility] Test 08:33:46 of 2) [code = SHINGLES VACCINES (1 of 2)] Future Scheduled 2022-12-22 COVID-19 VACCINE (3 - [facility] 08:33:46 Pfizer series) [code = COVID-19 VACCINE (3 - Pfizer series)] Future Scheduled 2022-12-22 [facility]INE [facility] 08:33:46 [code = INFLUENZA VACCINE] Future Scheduled 2022-10-31 65+ [facility]OCCAL [facility] 16:24:08 VACCINE (1 - PCV) [code = 65+ PNEUMOCOCCAL VACCINE (1 - PCV)] Future Scheduled 2022-10-31 Hepatitis C screening [facility] Test 16:24:08 (procedure) [code = [id number]] Future Scheduled 2022-10-31 SHINGLES VACCINES (1 [facility] Test 16:24:08 of 2) [code = SHINGLES VACCINES (1 of 2)] Future Scheduled 2022-10-31 COVID-19 VACCINE (3 - [facility] 16:24:08 Booster for Pfizer series) [code = COVID-19 VACCINE (3 - Booster for Pfizer series)] Future Scheduled 2022-10-31 INFLUENZA VACCINE [facility] 16:24:08 [code = INFLUENZA VACCINE] Future Scheduled 2022-10-24 65+ [facility]OCOCCAL [facility] 16:01:50 VACCINE (1 - PCV) [code = 65+ PNEUMOCOCCAL VACCINE (1 - PCV)] Future Scheduled 2022-10-24 Hepatitis C screening [facility] Test 16:01:50 (procedure) [code = [id number]] Future Scheduled 2022-10-24 SHINGLES VACCINES (1 [facility] Test 16:01:50 of 2) [code = SHINGLES VACCINES (1 of 2)] Future Scheduled 2022-10-24 COVID-19 VACCINE (3 - [facility] 16:01:50 Booster for Pfizer series) [code = COVID-19 VACCINE (3 - Booster for Pfizer series)] Future Scheduled 2022-10-24 INFLUENZA VACCINE [facility] Test 16:01:50 [code = INFLUENZA VACCINE] Future Scheduled 2022-10-12 65+ [facility]OCOCCAL [facility] 14:37:48 VACCINE (1 - PCV) [code = 65+ PNEUMOCOCCAL VACCINE (1 - PCV)] Future Scheduled 2022-10-12 [facility] 14:37:48 (procedure) [code = [id number]] Future Scheduled 2022-10-12 SHINGLES VACCINES (1 [facility] Test 14:37:48 of 2) [code = SHINGLES VACCINES (1 of 2)] Future Scheduled 2022-10-12 COVID-19 VACCINE (3 - [facility] 14:37:48 Booster for Pfizer series) [code = COVID-19 VACCINE (3 - Booster for Pfizer series)] Future Scheduled 2022-10-12 INFLUENZA VACCINE [facility] Test 14:37:48 [code = INFLUENZA VACCINE] Future Scheduled 2022-10-11 65+ [facility]OCOCCAL [facility] 15:44:16 VACCINE (1 - PCV) [code = 65+ PNEUMOCOCCAL VACCINE (1 - PCV)] Future Scheduled 2022-10-11 Hepatitis C screening [facility] Test 15:44:16 (procedure) [code = [id number]] Future Scheduled 2022-10-11 SHINGLES VACCINES (1 [facility] Test 15:44:16 of 2) [code = SHINGLES VACCINES (1 of 2)] Future Scheduled 2022-10-11 COVID-19 VACCINE (3 - [facility] 15:44:16 Booster for Pfizer series) [code = COVID-19 VACCINE (3 - Booster for Pfizer series)] Future Scheduled 2022-10-11 INFLUENZA VACCINE [facility] Test 15:44:16 [code = INFLUENZA VACCINE] Future Scheduled 2022-09-16 SHINGLES VACCINES (1 [facility] Test 12:39:07 of 2) [code = SHINGLES VACCINES (1 of 2)] Future Scheduled 2022-09-16 65+ [facility]OCOCCAL [facility] 12:39:07 VACCINE (1 - PCV) [code = 65+ PNEUMOCOCCAL VACCINE (1 - PCV)] Future Scheduled 2022-09-16 COVID-19 VACCINE (3 - [facility] 12:39:07 Booster for Pfizer series) [code = COVID-19 VACCINE (3 - Booster for Pfizer series)] Future Scheduled 2022-09-16 [facility]UENZA VACCINE [facility] 12:39:07 [code = INFLUENZA VACCINE] Future Scheduled 2022-06-[address] [facility] Test 00:00:00 (12+) [code = Medical Center DEPRESSION SCREENING (12+)] Future Scheduled 2022-06-[address] [facility] Test 00:00:00 [code = FALLS RISK Medical C enter SCREENING] Future Scheduled 2022-06-18 Medicare IPPE [facility]ELCOME [facility] TO MEDICARE) [code = Medical Center Medicare IPPE (WELCOME TO MEDICARE)] Future Scheduled 2022-06-[address] [facility] 00:00:00 (12+) [code = Medical Center DEPRESSION SCREENING (12+)] Future Scheduled 2022-06-[address]CREEN[address] [facility] 00:00:00 [code = FALLS RISK Medical C enter SCREENING] Future Scheduled 2022-06-18 Medicare IPPE ([facility]E [facility]:00:00 TO MEDICARE) [code = Medical Center Medicare IPPE (WELCOME TO MEDICARE)] Future Scheduled 2022-06-[address] [facility] 00:00:00 (12+) [code = Medical Center DEPRESSION SCREENING (12+)] Future Scheduled 2022-06-18 F[address] SCREENING [facility] 00:00:00 [code = FALLS RISK Medical C enter SCREENING] Future Scheduled 2022-06-18 Medicare IPPE (WELCOME [facility] 00:00:00 TO MEDICARE) [code = Medical Center Medicare IPPE (WELCOME TO MEDICARE)] Future Scheduled 2022-06-[address] [facility] Test 00:00:00 (12+) [code = Medical Center DEPRESSION SCREENING (12+)] Future Scheduled 2022-06-18 F[address] [address]ISK SCREENING [facility] 00:00:00 [code = FALLS RISK Medical C enter SCREENING] Future Scheduled 2022-06-18 Medicare IPPE (WELCOME [facility] 00:00:00 TO MEDICARE) [code = Medical Center Medicare IPPE (WELCOME TO MEDICARE)] Future Scheduled 2022-06-[address] [facility] Test 00:00:00 (12+) [code = Medical Center DEPRESSION SCREENING (12+)] Future Scheduled 2022-06-18 FALLS RISK SCREENING [facility] Test 00:00:00 [code = FALLS RISK Medical C enter SCREENING] Future Scheduled 2022-06-18 Medicare IPPE (WELCOME [facility] 00:00:00 TO MEDICARE) [code = Medical Center Medicare IPPE (WELCOME TO MEDICARE)] Future Scheduled 2022-06-03 COLONOSCOPY SCREENING [facility] Test 05:09:49 [code = COLONOSCOPY SCREENING] Future Scheduled 2022-06-03 SHINGLES VACCINES (1 [facility] Test 05:09:49 of 2) [code = SHINGLES VACCINES (1 of 2)] Future Scheduled 2022-06-03 65+ P[facility]UMOCOCCAL [facility] Test 05:09:49 VACCINE (1 - PCV) [code = 65+ PNEUMOCOCCAL VACCINE (1 - PCV)] Future Scheduled 2022-06-03 COVID-19 VACCINE (3 - [facility] 05:09:49 Booster for Pfizer series) [code = COVID-19 VACCINE (3 - Booster for Pfizer series)] Future Scheduled 2022-06-03 [facility]ZA [facility]ACCINE [facility] 05:09:49 [code = INFLUENZA VACCINE] Future Scheduled 2022-05-10 HEPATITIS B VACCINES [facility] Test 14:43:36 (1 of 3 - 3-dose series) [code = HEPATITIS B VACCINES (1 of 3 - 3-dose series)] Future Scheduled 2022-05-10 COLONOSCOPY SCREENING [facility] Test 14:43:36 [code = COLONOSCOPY SCREENING] Future Scheduled 2022-05-10 SHINGLES VACCINES (1 [facility] Test 14:43:36 of 2) [code = SHINGLES VACCINES (1 of 2)] Future Scheduled 2022-05-10 65[facility] 14:43:36 VACCINE (1 - PCV) [code = 65+ PNEUMOCOCCAL VACCINE (1 - PCV)] Future Scheduled 2022-05-10 COVID-19 [facility]ACCINE ([facility] - [facility] 14:43:36 Booster for Pfizer series) [code = COVID-19 VACCINE (3 - Booster for Pfizer series)] Future Scheduled 2022-05-10 [facility]FLUENZA [facility]ACCINE [facility] Test 14:43:36 [code = INFLUENZA VACCINE] Future Scheduled 2020-11-18 COVID-19 VACCINE (3 [facility] Booster for Pfizer Medical C enter series) [code = COVID-19 VACCINE (3 - Booster for Pfizer series)] Future Scheduled 2010 PNEUMOCOCCAL 65+ [facility] Test 00:00:00 (1 - PCV) [code = Medical Ce nter PNEUMOCOCCAL 65+ YRS (1 - PCV)] Future Scheduled 2010 PNEUMOCOCCAL 65+ [facility]RS [facility] Test 00:00:00 (1 - PCV) [code = Medical Ce nter PNEUMOCOCCAL 65+ YRS (1 - PCV)] Future Scheduled 2010 PNEUMOCOCCAL 65+ YRS [facility] Test 00:00:00 (1 - PCV) [code = Medical Ce nter PNEUMOCOCCAL 65+ YRS (1 - PCV)] Future Scheduled 2010 PNEUMOCOCCAL 65+ YRS [facility] Test 00:00:00 (1 - PCV) [code = Medical Ce nter PNEUMOCOCCAL 65+ YRS (1 - PCV)] Future Scheduled 1995-09-14 SHINGLES VACCINES ([address] [facility] Test 00:00:00 of 2) [code = SHINGLES Medic al Center VACCINES (1 of 2)] Future Scheduled 1995-09-14 SHINGLES VACCINES ([address] [facility] Test 00:00:00 of 2) [code = SHINGLES Medic al Center VACCINES (1 of 2)] Future Scheduled 1995-09-14 SHINGLES VACCINES ([address] [facility] Test 00:00:00 of 2) [code = SHINGLES Medic al Center VACCINES (1 of 2)] Future Scheduled 1995-09-14 SHINGLES VACCINES ([address] [facility] Test 00:00:00 of 2) [code = SHINGLES Medic al Center VACCINES (1 of 2)] Future Scheduled 1995-09-14 SHINGLES VACCINES ([address] [facility] Test 00:00:00 of 2) [code = SHINGLES Medic al Center VACCINES (1 of 2)] Future Scheduled 1964 DTAP/TDAP/TD VACCINES [facility] 00:[facility]:00 (1 - Tdap) [code = Medical C enter DTAP/TDAP/TD VACCINES (1 - Tdap)] Future Scheduled 1964 DTAP/TDAP/TD VACCINES [facility] 00:00:00 (1 - Tdap) [code = Medical C enter DTAP/TDAP/TD VACCINES (1 - Tdap)] Future Scheduled 1964 DTAP/TDAP/TD VACCINES [facility] 00:00:00 (1 - Tdap) [code = Medical C enter DTAP/TDAP/TD VACCINES (1 - Tdap)] Future Scheduled 1964 DTAP/TDAP/TD VACCINES [facility] 00:00:00 (1 - Tdap) [code = Medical C enter DTAP/TDAP/TD VACCINES (1 - Tdap)] Future Scheduled 1964 DTAP/TDAP/TD VACCINES [facility] 00:00:00 (1 - Tdap) [code = Medical C enter DTAP/TDAP/TD VACCINES (1 - Tdap)] Future Scheduled 1963-09-14 HEPATITIS C [facility]CREENING [facility]:00[facility]00 [code = HEPATITIS C Medical Center SCREENING] Future Scheduled 1963-09-14 HEPATITIS C [facility]CREENING [facility] 00:00:00 [code = HEPATITIS C Medical Center SCREENING] Future Scheduled 1963-09-14 HEPATITIS C [facility] 00:00:00 [code = HEPATITIS C [facility] SCREENING] Future Scheduled 1963-09-14 HEPATITIS C [facility] 00:00:00 [code = HEPATITIS C [facility] SCREENING] Future Scheduled 1963-09-14 HEPATITIS C [facility] 00:00:00 [code = HEPATITIS C [facility] SCREENING] Future Scheduled 1955-09-[address] DI[address] EXAM [facility] 00:00:00 [code = DIABETIC EYE [facility] EXAM] Future Scheduled 1955-09-[address] [facility]00 examination [facility] (regime/therapy) [code = [id number]] Future Scheduled 1955-09-14 Urine screening for [facility] 00:00:00 protein (procedure) [facility] [code = [id number]] Future Scheduled 1951-09-14 PNEUMOCOCCAL 65+ [address] [facility] 00:00:00 (1 - PCV) [code = Medical Ce nter PNEUMOCOCCAL 65+ YRS (1 - PCV)] Future Scheduled 1946-03-16 COVID-19 VACCINE (#1) [facility]:00 [code = COVID-[address] VACCINE (#1)] Future Scheduled 1946-03-16 COVID-19 VACCINE (#1) [facility] 00:00:00 [code = COVID-[address] VACCINE (#1)] Future Scheduled 1946-03-16 COVID-19 VACCINE (#1) [facility] 00:00:00 [code = COVID-[address] VACCINE (#1)] Future Scheduled 1946-03-16 COVID-19 VACCINE (#1) [facility] 00:00:00 [code = COVID-[address] VACCINE (#1)] Encounters Start End Encounter Admission Attending Care Care Encounter Source Date/Time Date/Time Type Type Clinicians Facility Department ID 2022-11-06 Outpatient 3 [id number] [facility] REF [id number] [facility] 16:02:08 [facility]22 [facility] [place] 2022-11-04 Outpatient 3 [id number] ENC[facility] REF [id number] [facility] 09:19:32 0520 [facility] [place] 2022-11-03 Outpatient 3 [id number] ENC[facility] REF [id number] [facility] 13:41:43 0519 [facility] [place] 2022-10-30 [facility] 1.2.840.1 [id number] Methodi 00:00:[address] 3.430.2.7 Hospit a .3.152480 l .8 2022-10-18 [facility] 1.2.840.1 [id number] Methodi 00:00:[address] 3.430.2.7 Hospit a .3.432082 l .8 2020-12-17 Inpatient Elliott [facility] [id number] [facility] 10:20:00 Payne 32 2022-11-26 2022-11-29 [facility] Elicia Saavedra 1.2.840. 1 [id number] Methodi 12:17:00 20:23:00 Encounter Argentina Caruso 91309.1.[address] 3.430.2.7 Hospit a .3.761008 l .8 2022-11-26 2022-11-29 Inpatient SHADY [facility] 064 [id number] [place] 00:00:00 00:00:00 [place] [address] 2022-11-28 2022-11-28 Anesthesia Yariel Blake 1.2.840.1 [id number] Methodi 13:06:00 13:55:00 Event Galarza Herberthashly Alejandra 19547.1.[address] 3.430.2.7 Hospit a .3.733961 l .8 2022-11-28 2022-11-28 Surgery Zi, 1.2.840.1 [id number] Methodi 12:48:00 13:53:[address] 3.430.2.7 Hospit a .3.661766 l .8 2022-11-26 2022-11-26 Travel 1.2.840.1 1.2.699.562 5174 [id number] Methodi 00:00:00 00:00:[address] 3.430.2.7 0.2.7.3.698 Ho spita .3.937812 084.8 l .8 2022-11-18 2022-11-18 Outpatient READMIHERNAN ALEX, ENCCLR ENCCLR [id number] ENCCLR 00:00:00 00:00:00 Fabian CANALES 2022-11-07 2022-11-17 Inpatient 3 [facility] ENCPL OT 5911 [facility] 19:41:00 16:33:00 rico, 0523 [facility] [place] 2022-10-31 2022-11-07 Inpatient BRANDI SERRANO Surgery [id number] [facility] 15:53:00 19:05:00 KUMAR 2022-10-31 2022-10-31 Travel [facility] [id number] [facility] 00:[facility] 00:00:00 [facility] 2022-10-10 2022-10-10 Office Wei Christina 1.2.840.1 [id number] Methodi 08:30:00 08:57:[address] 3.430.2.7 Hospit a .3.578882 l .8 2022-10-10 2022-10-10 Office Wei Christina 1.2.840.1 [id number] 21 [id number] Methodi 08:30:00 08:57:[address] 3.430.2.7 Hospit a .3.493532 l .8 2022-10-10 2022-10-10 Travel 1.2.840.1 1.2.440.765 3732 [id number] Methodi 00:00:00 00:00:[address] 3.430.2.7 0.2.7.3.698 Ho spita .3.807994 084.8 l .8 2022-10-10 2022-10-10 Travel 1.2.840.1 1.2.770.758 9363 [id number] Methodi 00:00:00 00:00:[address] 3.430.2.7 0.2.7.3.698 Ho spita .3.290006 084.8 l .8 2022-09-23 [facility] [id number] Methodi 12:51:00 13:54:00 Primo Briscoe [address] 3.430.2.7 Hospit a .3.886533 l .8 2022-09-23 2022-09-26 [facility] RACHNA, 1.2.840.1 [id number] [id number] [place] 00:00:00 00:00:00 Encounter PRIMO 50014.1.[address] .3.489068 .8 2022-09-23 2022-09-23 Travel 1.2.840.1 1.2.817.042 2511 [id number] Methodi 00:00:00 00:00:[address] 3.430.2.7 0.2.7.3.698 Ho spita .3.503931 084.8 l .8 2022-09-23 2022-09-23 Travel 1.2.840.1 1.2.851.146 1032 [id number] Methodi 00:00:00 00:00:[address] 3.430.2.7 0.2.7.3.698 Ho spita .3.640449 084.8 l .8 2022-09-16 2022-09-16 Emergency ER [facility] Emergency [id number] [facility] 12:57:00 17:27:00 MCKEAN 2022-09-16 2022-09-16 Emergency ER [facility], [facility] [id number] [id number] [facility] 12:57:00 17:27:00 [facility] 2022-08-27 2022-08-27 Emergency E JOANIEYAJONNAA MHBL MHBL 7502 MHBL 17:13:00 21:59:00 , LALIT 2020-12-17 2020-12-17 Outpatient [facility] [id number] [facility] 08:28:00 08:28:00 32 2020-10-19 2020-10-19 Outpatient MARY THAYERNNam 7501 [facility]NW 07:59:00 23:59:00 THOMPSON 2020-09-23 2020-09-23 Outpatient BRITANY [facility] [id number] [address] [place] [address] 00:00:00 00:00:00 MICHAEL [address] 2020-09-02 2020-09-02 Outpatient [facility] [id number] 189 [place] 00:00:00 00:00:[address] 2019-11-20 2019-11-20 Outpatient MARY THAYER [facility]NW 7500 [facility]NW 10:54:00 10:54:00 THOMPSON Results Test Description Test Time Test Comments Results Result Comments Source FUNGUS CULTURE + SMEAR 2022-12-07 08:17:47 Test Item Value Reference Range Interpretation Comme nts CULTURE (BEAKER) (test code = 1095) No fungus isolated in 28 days FUNGUS SMEAR (BEAKER) (test code = 1406) No fungi seen AFB [id number] 14:23:00 Test Item Value Reference Range Interpretation Comments AFB stain No acid fast Specimen (test code = bacilli (AFB) InformationSpe cimen 676-7) seen. Source: TissueS pecimen Site: Heel: Lef t heel culture [facility] [id number] 03:56:00 Test Item Value Reference Interpretation Comments Range Tissue culture Staphylococcus A Specimen isolate (test code , coagulase Informati onSpecimen = 00383-8) negative Source: TissueS pecimen Site: Heel: Lef t heel culture Lab Interpretation Abnormal (test code = 36739-4) [facility] [id number] 17:41:00 Test Item Value Reference Range Interpretation Comments Anaerobic No anaerobic Specimen culture isolate organisms InformationS pecimen (test code = isolated. Source: TissueS pecimen 98336-3) Site: Heel: [facility] [id number] 00:47:26 Test Item Value Reference Range Interpretation Comments Ventricular rate (test 69 code = 253) Atrial rate (test code = 69 255) NM interval (test code = 192 266) QRSD interval (test code 90 = 260) QT interval (test code = 376 264) QTC interval (test code 402 = 265) P axis 1 (test code = 48 267) QRS axis 1 (test code = 41 268) T wave axis (test code = 32 270) EKG impression (test Normal sinus code = 273) rhythm-Normal ECG-No previous ECGs available-Electronica lly Signed By Moisés Guzman MD ([id number]) on 11/29/2022 7:47:19 PM [facility] [id number] 22:09:00 Test Item Value Reference Range Interpretation Comments POC glucose (test code 185 mg/dL 65-99 H Opera tor Name: Karmen = 04295-5) JustinDevice ID : [id number] able: RN Notified Lab Interpretation Abnormal (test code = 23670-3) [facility] RBC, 1 [id number] 19:19:00 Test Item Value Reference Range Interpretation Comments Product name (test code Red Blood Cells -1, = 25) Leukored Unit number (test code [id number] = [id number]) Product code (test code H1108F36 = 3092) Dispense status (test Transfused code = 24) Blood expiration date (test code = 302) Blood type code (test 7300 code = 308) Blood type (test code = B POSITIVE 1314) Compatibility (test Compatible code = 6400) [place] (test code = [place]) [facility] [id number] 18:34:00 Test Item Value Reference Range Interpretation Comments Fungus smear No fungi Specimen (test code = observed. InformationSpec imen Source: 1443) TissueSpecimen Site: Heel: Left heel cultu re [facility] [id number] 06:01:00 Test Item Value Reference Range Interpretation Comments Gram stain No organisms Specimen isolate (test seen InformationSpe cimen code = 1469) Source: TissueS pecimen Site: Heel: Lef t heel culture [facility] Temple[facility] [id number] 23:48:00 Test Item Value Reference Range Interpretation Comments Urine culture (test SEE COMMENT Bacteriu hamilton screen code = 6370227) negative. [facility] TempleInfluenza virus A and B [id number] 14:25:56 Test Item Value Reference Range Interpretation Comments SARS-CoV-2 (COVID-19) RNA Not detected [Presence] in Respiratory specimen by LEYDI with probe detection (test code = 96672-4) Whether patient resides in a No congregate care setting (test code = 52470-4) Date and time of symptom onset Unknown (test code = 24894-3) Whether the patient was No hospitalized for condition of interest (test code = 34025-9) Whether the patient was admitted No to intensive care unit (ICU) for condition of interest (test code = 62426-2) Whether patient is employed in a No healthcare setting (test code = 51777-0) Whether the patient has symptoms No related to condition of interest (test code = 22111-2) status (test code = No 21863-8) [facility] [id number] 18:54:20Surgical Pathology Report Case: [id number] Authorizing Provider: Sunshine Pinon DPM Collected: 11/03/2022 02:34 PM Ordering Location: [facility] Med Surg 5th Floor Received: 11/06/2022 08:50 AM Pathologist: Jeniffer Swift MD Specimen: Soft Tissue, Other, CALCANEUS LEFT HEEL A. CALCANEUS, LEFT HEEL, EXCISION- FIBROADIPOSE TISSUE WITH SMALL BONE FRAGMENTS WITHOUT SIGNIFICANT INFLAMMATION Signing Pathologist Direct Phone Line: [phone] signed by Jeniffer Swift MD on 11/08/2022 at 6:54 [id number]. Soft Tissue, OtherThe specimen is received in one part in a formalin container labeled with the patient's name and identification number. The specimen consists of multiple pieces of white-clark soft tissue measuring 2 x 1 x 0.3 cm. It is entirely submitted in cassette A1. CC/ewPOCT-GLUCOSE [id number] 17:04:48 Test Item Value Reference Range Interpretation Comments POC-GLUCOSE METER 239 mg/dL 70-110 H : Notified RN/MD: TESTED ([facility]) (test code AT [address] = 1538) [place] [address]: Vial Gauger/Techni faiza ID = [id number] for Thak er, Nikitaben POCT-GLUCOSE [id number] 13:37:52 Test Item Value Reference Range Interpretation Comments POC-GLUCOSE METER 152 mg/dL 70-110 H : Notified RN/MD: TESTED ([facility]) (test code AT [address] = 1538) [place] [address]: Vial Gauger/Techni faiza ID = [id number] for Thak er, Nikitaben POCT-GLUCOSE [id number] 07:49:09 Test Item Value Reference Range Interpretation Comments POC-GLUCOSE METER 143 mg/dL 70-110 H : Notified RN/MD: TESTED ([facility]) (test code AT [address] = 1538) [place] [address]: Vial Gauger/Techni faiza ID = [id number] for Thak er, Nikitaben [id number] 06:31:38 Test Item Value Reference Range Interpretation Comments MAGNESIUM (BEAKER) (test code = 1.5 mg/dL 1.5-3.0 627) Vial Gauger ID - LITOOperator ID - LITOOperator ID - LITOOperator ID - LITOBASIC METABOLIC [id number] 06:30:35 Test Item Value Reference Range Interpretation Comments SODIUM (BEAKER) 138 meq/L 135-148 (test code = 381) POTASSIUM 4.2 meq/L 3.6-5.5 (BEAKER) (test code = 379) CHLORIDE (BEAKER) 107 meq/L 98-106 H (test code = 382) CO2 (BEAKER) 23 meq/L 20-29 (test code = 355) BLOOD UREA 20 mg/dL 10-26 NITROGEN (BEAKER) (test code = 354) CREATININE 0.84 mg/dL 0.50-1.20 (BEAKER) (test code = 358) GLUCOSE RANDOM 161 mg/dL 70-110 H (BEAKER) (test code = 652) CALCIUM (BEAKER) 9.2 mg/dL 8.5-10.5 (test code = 697) EGFR (BEAKER) 91 Interpretatio n of eGFR (test code = mL/min/1.73 values Stage De scription 1092) sq m Result G1 Bette l or high >=90 G2 Mildly decreased 60-89 G3a Mildl y to moderately 45-5 9 G3b Moderately to s everely 30-44 G4 Severl y decreased 15-29 G5 Kidney failure <15Reported eGF R is based on the CKD-EPI 1 equation that d oes not use a race coefficientEsti mated GFR is not as accur ate as Creatinine Jie barrera in predicting glom erular filtration rate . Estimated GFR is not appl icable for dialysis patien ts Vial Gauger ID - LITOOperator ID - LITOOperator ID - LITOOperator ID - LITOOperator ID - LITOOperator ID - LITOOperator ID - LITOOperator ID - LITOOperator ID - LITOCBC W/PLT COUNT & AUTO [id number] 06:21:53 Test Item Value Reference Range Interpretation Comments WHITE BLOOD CELL COUNT (BEAKER) 7.7 K/ L 4.0-10.0 (test code = 775) RED BLOOD CELL COUNT (BEAKER) 2.85 M/ L 4.20-5.80 L (test code = 761) HEMOGLOBIN (BEAKER) (test code = 8.7 GM/DL 13.0-16.8 L 410) HEMATOCRIT (BEAKER) (test code = 26.2 % 36.0-50.0 L 411) MEAN CORPUSCULAR VOLUME (BEAKER) 92 fL 82-99 (test code = 753) MEAN CORPUSCULAR HEMOGLOBIN 30.5 pg 27.0-33.0 (BEAKER) (test code = 751) MEAN CORPUSCULAR HEMOGLOBIN CONC 33.2 GM/DL 32.0-36.0 (BEAKER) (test code = 752) RED CELL DISTRIBUTION WIDTH 12.7 % 12.0-15.0 (BEAKER) (test code = 412) PLATELET COUNT (BEAKER) (test 213 K/CU MM 150-430 code = 756) MEAN PLATELET VOLUME (BEAKER) 9.8 fL 6.0-11.5 (test code = 754) NUCLEATED RED BLOOD CELLS 0 /100 WBC 0-0 (BEAKER) (test code = 413) NEUTROPHILS RELATIVE PERCENT 63 % (BEAKER) (test code = 429) LYMPHOCYTES RELATIVE PERCENT 26 % (BEAKER) (test code = 430) MONOCYTES RELATIVE PERCENT 7 % (BEAKER) (test code = 431) EOSINOPHILS RELATIVE PERCENT 3 % (BEAKER) (test code = 432) BASOPHILS RELATIVE PERCENT 1 % (BEAKER) (test code = 437) NEUTROPHILS ABSOLUTE COUNT 4.87 K/ L 1.80-8.00 (BEAKER) (test code = 670) LYMPHOCYTES ABSOLUTE COUNT 1.99 K/ L 1.48-4.50 (BEAKER) (test code = 414) MONOCYTES ABSOLUTE COUNT (BEAKER) 0.56 K/ L 0.00-1.30 (test code = 415) EOSINOPHILS ABSOLUTE COUNT 0.20 K/ L 0.00-0.50 (BEAKER) (test code = 416) BASOPHILS ABSOLUTE COUNT (BEAKER) 0.04 K/ L 0.00-0.20 (test code = 417) IMMATURE GRANULOCYTES-RELATIVE 0.50 % 0.00-0.00 H PERCENT (BEAKER) (test code = 2801) POCT-GLUCOSE [id number] 20:58:28 Test Item Value Reference Range Interpretation Comments POC-GLUCOSE METER 173 mg/dL 70-110 H : TESTED A T [facility] 1317 (BEAKER) (test code [facility], = 1538) [place] 473298: Vial Gauger/Techni faiza ID = [id number] for Kristy Brambila POCT-GLUCOSE [id number] 18:39:54 Test Item Value Reference Range Interpretation Comments POC-GLUCOSE METER 145 mg/dL 70-110 H : TESTED A T [facility] 1317 (BEAKER) (test code [facility], = 1538) [place] 473298: Vial Gauger/Techni faiza ID = [id number] for Ubaldo h, Clarita POCT-GLUCOSE [id number] 11:31:19 Test Item Value Reference Range Interpretation Comments POC-GLUCOSE METER 128 mg/dL 70-110 H : TESTED A T [facility] 1317 (BEAKER) ([facility] = 1538) [place] [address]: Vial Gauger/Techni faiza ID = [id number] for Ubaldo h, Clarita ANAEROBIC [id number] 10:41:32 Test Item Value Reference Range Interpretation Comments CULTURE (BEAKER) (test No anaerobes isolated code = 1095) POCT-GLUCOSE [id number] 08:21:15 Test Item Value Reference Range Interpretation Comments POC-GLUCOSE METER 126 mg/dL 70-110 H : TESTED A T [facility] 1317 (BEAKER) (test code [facility], = 1538) [place] [address]: Vial Gauger/Techni faiza ID = [id number] for Ubaldo h, [place] [id number] 06:10:13 Test Item Value Reference Range Interpretation Comments MAGNESIUM (BEAKER) (test code = 1.3 mg/dL 1.5-3.0 L 627) Vial Gauger ID - [id number] ID - [id number] ID - [id number] ID - [id number] METABOLIC [id number] 06:08:34 Test Item Value Reference Range Interpretation Comments SODIUM (BEAKER) 137 meq/L 135-148 (test code = 381) POTASSIUM 4.7 meq/L 3.6-5.5 (BEAKER) (test code = 379) CHLORIDE (BEAKER) 106 meq/L 98-106 (test code = 382) CO2 (BEAKER) 24 meq/L 20-29 (test code = 355) BLOOD UREA 25 mg/dL 10-26 NITROGEN (BEAKER) (test code = 354) CREATININE 0.92 mg/dL 0.50-1.20 (BEAKER) (test code = 358) GLUCOSE RANDOM 136 mg/dL 70-110 H (BEAKER) (test code = 652) CALCIUM (BEAKER) 9.1 mg/dL 8.5-10.5 (test code = 697) EGFR (BEAKER) 87 Interpretatio n of eGFR (test code = mL/min/1.73 values Stage De scription 1092) sq m Result G1 Bette l or high >=90 G2 Mildly decreased 60-89 G3a Mildl y to moderately 45-5 9 G3b Moderately to s everely 30-44 G4 Severl y decreased 15-29 G5 Kidney failure <15Reported eGF R is based on the CKD-EPI 2020 equation that d oes not use a race coefficientEsti mated GFR is not as accur ate as Creatinine Jie holly in predicting glom erular filtration rate . Estimated GFR is not appl icable for dialysis patien ts Vial Gauger ID - [id number] ID - [id number] ID - [id number] ID - [id number] ID - [id number] ID - [id number] ID - [id number] ID - [id number] ID - [id number] W/PLT COUNT & AUTO [id number] 05:47:07 Test Item Value Reference Range Interpretation Comments WHITE BLOOD CELL COUNT (BEAKER) 9.3 K/ L 4.0-10.0 (test code = 775) RED BLOOD CELL COUNT (BEAKER) 2.83 M/ L 4.20-5.80 L (test code = 761) HEMOGLOBIN (BEAKER) (test code = 8.5 GM/DL 13.0-16.8 L 410) HEMATOCRIT (BEAKER) (test code = 25.5 % 36.0-50.0 L 411) MEAN CORPUSCULAR VOLUME (BEAKER) 90 fL 82-99 (test code = 753) MEAN CORPUSCULAR HEMOGLOBIN 30.0 pg 27.0-33.0 (BEAKER) (test code = 751) MEAN CORPUSCULAR HEMOGLOBIN CONC 33.3 GM/DL 32.0-36.0 (BEAKER) (test code = 752) RED CELL DISTRIBUTION WIDTH 12.6 % 12.0-15.0 (BEAKER) (test code = 412) PLATELET COUNT (BEAKER) (test 178 K/CU MM 150-430 code = 756) MEAN PLATELET VOLUME (BEAKER) 9.5 fL 6.0-11.5 (test code = 754) NUCLEATED RED BLOOD CELLS 0 /100 WBC 0-0 (BEAKER) (test code = 413) NEUTROPHILS RELATIVE PERCENT 62 % (BEAKER) (test code = 429) LYMPHOCYTES RELATIVE PERCENT 28 % (BEAKER) (test code = 430) MONOCYTES RELATIVE PERCENT 8 % (BEAKER) (test code = 431) EOSINOPHILS RELATIVE PERCENT 2 % (BEAKER) (test code = 432) BASOPHILS RELATIVE PERCENT 1 % (BEAKER) (test code = 437) NEUTROPHILS ABSOLUTE COUNT 5.70 K/ L 1.80-8.00 (BEAKER) (test code = 670) LYMPHOCYTES ABSOLUTE COUNT 2.63 K/ L 1.48-4.50 (BEAKER) (test code = 414) MONOCYTES ABSOLUTE COUNT (BEAKER) 0.70 K/ L 0.00-1.30 (test code = 415) EOSINOPHILS ABSOLUTE COUNT 0.16 K/ L 0.00-0.50 (BEAKER) (test code = 416) BASOPHILS ABSOLUTE COUNT (BEAKER) 0.06 K/ L 0.00-0.20 (test code = 417) IMMATURE GRANULOCYTES-RELATIVE 0.40 % 0.00-0.00 H PERCENT (BEAKER) (test code = 2801) POCT-GLUCOSE [id number] 20:51:13 Test Item Value Reference Range Interpretation Comments POC-GLUCOSE METER 212 mg/dL 70-110 H : TESTED A T [facility] 1317 (BEAKER) (test code [address], = 1538) [facility] 77 478: Vial Gauger/Techni faiza ID = [id number] for Ag polanco Kristy POCT-GLUCOSE [id number] 17:40:51 Test Item Value Reference Range Interpretation Comments POC-GLUCOSE METER 124 mg/dL 70-110 H : TESTED A T [facility] 1317 (BEAKER) (test code [facility], = 1538) [place] [address]3298: Vial Gauger/Techni faiza ID = [id number] for Ubaldo Sayra concepciona POCT-GLUCOSE [id number] 13:47:18 Test Item Value Reference Range Interpretation Comments POC-GLUCOSE METER 230 mg/dL 70-110 H : TESTED A T [facility] 1317 (BEAKER) (test code [facility], = 1538) [place] [address]32[address]: Vial Gauger/Techni faiza ID = [id number] for Ubaldo h, Clarita SURGICALLY OBTAINED CULTURE + GRAM [id number] 09:26:33 Test Item Value Reference Range Interpretation Comments CULTURE (BEAKER) (test code No growth = 1095) GRAM STAIN RESULT (BEAKER) <1+ WBCs (test code = 1123) GRAM STAIN RESULT (BEAKER) No organisms seen (test code = 48937) POCT-GLUCOSE [id number] 08:51:57 Test Item Value Reference Range Interpretation Comments POC-GLUCOSE METER 125 mg/dL 70-110 H : TESTED A T [facility] 1317 (BEAKER) (test code [facility], = 1538) [place] [address]3298: Vial Gauger/Techni faiza ID = [id number] for Ubaldo Sayra concepciona POCT-GLUCOSE [id number] 21:12:01 Test Item Value Reference Range Interpretation Comments POC-GLUCOSE METER 166 mg/dL 70-110 H : TESTED A T [facility] 1317 (BEAKER) (test code [facility], = 1538) [place] [address]: Vial Gauger/Techni faiza ID = [id number] for Aanu yuridia, felicity VANCOMYCIN LEVEL, [id number] 21:00:45 Test Item Value Reference Range Interpretation Comments VANCOMYCIN TROUGH (BEAKER) (test 12.4 ug/mL 10.0-20.0 code = 522) Vial Gauger ID - ADMINPOCT-GLUCOSE [id number] 12:22:44 Test Item Value Reference Range Interpretation Comments POC-GLUCOSE METER 287 mg/dL 70-110 H : TESTED A T [facility] 1317 (BEAKER) (test code [facility] [address], = 1538) [facility] 77 478: Vial Gauger/Techni faiza ID = [id number] for Kaylin Azar POCT-GLUCOSE [id number] 08:36:27 Test Item Value Reference Range Interpretation Comments POC-GLUCOSE METER 68 mg/dL 70-110 L : TESTED A T [facility] 1317 (BEAKER) (test code = [address], 1538) [facility] 77 478: Vial Gauger/Techni faiza ID = [id number] for Kaylin Azar [id number] 06:30:42 Test Item Value Reference Range Interpretation Comments MAGNESIUM (BEAKER) (test code = 1.6 mg/dL 1.5-3.0 627) Vial Gauger ID - [id number] ID - [id number] ID - [id number] ID - [id number] METABOLIC [id number] 06:29:23 Test Item Value Reference Range Interpretation Comments SODIUM (BEAKER) 139 meq/L 135-148 (test code = 381) POTASSIUM 4.8 meq/L 3.6-5.5 (BEAKER) (test code = 379) CHLORIDE (BEAKER) 107 meq/L 98-106 H (test code = 382) CO2 (BEAKER) 24 meq/L 20-29 (test code = 355) BLOOD UREA 16 mg/dL 10-26 NITROGEN (BEAKER) (test code = 354) CREATININE 0.69 mg/dL 0.50-1.20 (BEAKER) (test code = 358) GLUCOSE RANDOM 73 mg/dL 70-110 (BEAKER) (test code = 652) CALCIUM (BEAKER) 9.2 mg/dL 8.5-10.5 (test code = 697) EGFR (BEAKER) 95 Interpretatio n of eGFR (test code = mL/min/1.73 values Stage De scription 1092) sq m Result G1 Bette l or [...] not appl icable for dialysis patien ts Vial Gauger ID - [id number] ID - [id number] ID - [id number] ID - [id number] ID - [id number] ID - [id number] ID - [id number] ID - [id number] ID - [id number] W/PLT COUNT & AUTO [id number] 05:59:34 Test Item Value Reference Range Interpretation Comments WHITE BLOOD CELL COUNT (BEAKER) 9.9 K/ L 4.0-10.0 (test code = 775) RED BLOOD CELL COUNT (BEAKER) 3.00 M/ L 4.20-5.80 L (test code = 761) HEMOGLOBIN (BEAKER) (test code = 9.0 GM/DL 13.0-16.8 L 410) HEMATOCRIT (BEAKER) (test code = 27.9 % 36.0-50.0 L 411) MEAN CORPUSCULAR VOLUME (BEAKER) 93 fL 82-99 (test code = 753) MEAN CORPUSCULAR HEMOGLOBIN 30.0 pg 27.0-33.0 (BEAKER) (test code = 751) MEAN CORPUSCULAR HEMOGLOBIN CONC 32.3 GM/DL 32.0-36.0 (BEAKER) (test code = 752) RED CELL DISTRIBUTION WIDTH 12.7 % 12.0-15.0 (BEAKER) (test code = 412) PLATELET COUNT (BEAKER) (test 192 K/CU MM 150-430 code = 756) MEAN PLATELET VOLUME (BEAKER) 9.7 fL 6.0-11.5 (test code = 754) NUCLEATED RED BLOOD CELLS 0 /100 WBC 0-0 (BEAKER) (test code = 413) NEUTROPHILS RELATIVE PERCENT 66 % (BEAKER) (test code = 429) LYMPHOCYTES RELATIVE PERCENT 24 % (BEAKER) (test code = 430) MONOCYTES RELATIVE PERCENT 8 % (BEAKER) (test code = 431) EOSINOPHILS RELATIVE PERCENT 2 % (BEAKER) (test code = 432) BASOPHILS RELATIVE PERCENT 1 % (BEAKER) (test code = 437) NEUTROPHILS ABSOLUTE COUNT 6.51 K/ L 1.80-8.00 (BEAKER) (test code = 670) LYMPHOCYTES ABSOLUTE COUNT 2.34 K/ L 1.48-4.50 (BEAKER) (test code = 414) MONOCYTES ABSOLUTE COUNT (BEAKER) 0.79 K/ L 0.00-1.30 (test code = 415) EOSINOPHILS ABSOLUTE COUNT 0.15 K/ L 0.00-0.50 (BEAKER) (test code = 416) BASOPHILS ABSOLUTE COUNT (BEAKER) 0.05 K/ L 0.00-0.20 (test code = 417) IMMATURE GRANULOCYTES-RELATIVE 0.40 % 0.00-0.00 H PERCENT (BEAKER) (test code = 2801) POCT-GLUCOSE [id number] 20:54:41 Test Item Value Reference Range Interpretation Comments POC-GLUCOSE METER 182 mg/dL 70-110 H : TESTED A T [facility] (BEAKER) (test code [facility] [address], = 1538) [place] [address]: Vial Gauger/Techni faiza ID = [id number] for cathy Bergeron POCT-GLUCOSE [id number] 16:42:13 Test Item Value Reference Range Interpretation Comments POC-GLUCOSE METER 111 mg/dL 70-110 H : TESTED A T [facility] (BEAKER) (test code [address], = 15[address]) [place] [address]: Vial Gauger/Techni faiza ID = [id number] for Ubaldo jamey, Clarita POCT-GLUCOSE [id number] 15:43:39 Test Item Value Reference Range Interpretation Comments POC-GLUCOSE METER 105 mg/dL 70-110 : TESTED A T [facility] (BEAKER) (test code [address], = 1538) [place] [address]: Vial Gauger/Techni faiza ID = [id number] for More germainSava POCT-GLUCOSE [id number] 14:37:39 Test Item Value Reference Range Interpretation Comments POC-GLUCOSE METER 85 mg/dL 70-110 : TESTED A T [facility] (BEAKER) (test code = [address], [address]) [place] [address]: Vial Gauger/Techni faiza ID = [id number] for Usha Irwin POCT-GLUCOSE [id number] 11:57:53 Test Item Value Reference Range Interpretation Comments POC-GLUCOSE METER 99 mg/dL 70-110 : TESTED A T [facility] (BEAKER) (test code = [address], 1538) [facility] [address]: Vial Gauger/Techni faiza ID = [id number] for Ubaldo h, Clarita POCT-GLUCOSE [id number] 07:38:29 Test Item Value Reference Range Interpretation Comments POC-GLUCOSE METER 89 mg/dL 70-110 : TESTED A T [facility] (BEAKER) (test code = [address], 1538) [facility] [address]: Vial Gauger/Techni faiza ID = [id number] for Ubaldo h, Clarita [id number] 05:41:54 Test Item Value Reference Range Interpretation Comments MAGNESIUM (BEAKER) (test code = 1.5 mg/dL 1.5-3.0 627) Vial Gauger ID - LITOOperator ID - LITOOperator ID - LITOOperator ID - LITOBASIC METABOLIC [id number] 05:40:37 Test Item Value Reference Range Interpretation Comments SODIUM (BEAKER) 136 meq/L 135-148 (test code = 381) POTASSIUM 4.6 meq/L 3.6-5.5 (BEAKER) (test code = 379) CHLORIDE (BEAKER) 105 meq/L 98-106 (test code = 382) CO2 (BEAKER) 24 meq/L 20-29 (test code = 355) BLOOD UREA 22 mg/dL 10-26 NITROGEN (BEAKER) (test code = 354) CREATININE 0.82 mg/dL 0.50-1.20 (BEAKER) (test code = 358) GLUCOSE RANDOM 90 mg/dL 70-110 (BEAKER) (test code = 652) CALCIUM (BEAKER) 9.0 mg/dL 8.5-10.5 (test code = 697) EGFR (BEAKER) 91 Interpretatio n of eGFR (test code = mL/min/1.73 values Stage De scription 1092) sq m Result G1 Bette l or high >=90 G2 Mildly decreased 60-89 G3a Mildl y to moderately 45-5 9 G3b Moderately to s everely 30-44 G4 Severl y decreased 15-29 G5 Kidney failure <15Reported eGF R is based on the CKD-EPI 2020 equation that d oes not use a race coefficientEsti mated GFR is not as accur ate as Creatinine Jie holly in predicting glom erular filtration rate . Estimated GFR is not appl icable for dialysis patien ts Vial Gauger ID - LITOOperator ID - LITOOperator ID - LITOOperator ID - LITOOperator ID - LITOOperator ID - LITOOperator ID - LITOOperator ID - LITOOperator ID - LITOCBC W/PLT COUNT & AUTO [id number] 05:16:24 Test Item Value Reference Range Interpretation Comments WHITE BLOOD CELL COUNT (BEAKER) 9.7 K/ L 4.0-10.0 (test code = 775) RED BLOOD CELL COUNT (BEAKER) 2.94 M/ L 4.20-5.80 L (test code = 761) HEMOGLOBIN (BEAKER) (test code = 8.9 GM/DL 13.0-16.8 L 410) HEMATOCRIT (BEAKER) (test code = 27.1 % 36.0-50.0 L 411) MEAN CORPUSCULAR VOLUME (BEAKER) 92 fL 82-99 (test code = 753) MEAN CORPUSCULAR HEMOGLOBIN 30.3 pg 27.0-33.0 (BEAKER) (test code = 751) MEAN CORPUSCULAR HEMOGLOBIN CONC 32.8 GM/DL 32.0-36.0 (BEAKER) (test code = 752) RED CELL DISTRIBUTION WIDTH 12.6 % 12.0-15.0 (BEAKER) (test code = 412) PLATELET COUNT (BEAKER) (test 177 K/CU MM 150-430 code = 756) MEAN PLATELET VOLUME (BEAKER) 10.1 fL 6.0-11.5 (test code = 754) NUCLEATED RED BLOOD CELLS 0 /100 WBC 0-0 (BEAKER) (test code = 413) NEUTROPHILS RELATIVE PERCENT 62 % (BEAKER) (test code = 429) LYMPHOCYTES RELATIVE PERCENT 27 % (BEAKER) (test code = 430) MONOCYTES RELATIVE PERCENT 9 % (BEAKER) (test code = 431) EOSINOPHILS RELATIVE PERCENT 2 % (BEAKER) (test code = 432) BASOPHILS RELATIVE PERCENT 0 % (BEAKER) (test code = 437) NEUTROPHILS ABSOLUTE COUNT 5.98 K/ L 1.80-8.00 (BEAKER) (test code = 670) LYMPHOCYTES ABSOLUTE COUNT 2.62 K/ L 1.48-4.50 (BEAKER) (test code = 414) MONOCYTES ABSOLUTE COUNT (BEAKER) 0.88 K/ L 0.00-1.30 (test code = 415) EOSINOPHILS ABSOLUTE COUNT 0.16 K/ L 0.00-0.50 (BEAKER) (test code = 416) BASOPHILS ABSOLUTE COUNT (BEAKER) 0.03 K/ L 0.00-0.20 (test code = 417) IMMATURE GRANULOCYTES-RELATIVE 0.50 % 0.00-0.00 H PERCENT (BEAKER) (test code = 2801) POCT-GLUCOSE [id number] 21:05:40 Test Item Value Reference Range Interpretation Comments POC-GLUCOSE METER 235 mg/dL 70-110 H : TESTED A T [facility] ([facility]) (test code [facility], = 1538) [place] [address]: Vial Gauger/Techni faiza ID = [id number] for Bownabila an, Ramonica POCT-GLUCOSE [id number] 16:44:02 Test Item Value Reference Range Interpretation Comments POC-GLUCOSE METER 171 mg/dL 70-110 H : Notified RN/MD: TESTED ([facility]) (test code AT [facility] [address] [address]INT = 1538) [place] [address]: Vial Gauger/Techni faiza ID = [id number] for Thak er, Nikitaben POCT-GLUCOSE [id number] 11:52:49 Test Item Value Reference Range Interpretation Comments POC-GLUCOSE METER 255 mg/dL 70-110 H : Notified RN/MD: TESTED ([facility]) (test code AT [facility] [address] = [address]) [place] [address]: Vial Gauger/Techni faiza ID = [id number] for Thak er, Nikitaben POCT-GLUCOSE [id number] 08:53:32 Test Item Value Reference Range Interpretation Comments POC-GLUCOSE METER 123 mg/dL 70-110 H : Notified RN/MD: TESTED ([facility]) [facility] [address] = [address]) [place] [address]: Vial Gauger/Techni faiza ID = [id number] for Vipin Greer VANCOMYCIN LEVEL, [id number] 08:26:43 Test Item Value Reference Range Interpretation Comments VANCOMYCIN TROUGH (BEAKER) (test 13.7 ug/mL 10.0-20.0 code = 522) Vial Gauger ID - [id number]-VVAFXOY [id number] 07:56:45 Test Item Value Reference Range Interpretation Comments POC-GLUCOSE METER 65 mg/dL 70-110 L : Not[facility] RN[facility]MD: [facility] (test code = AT [facility] L [address]) [place] [address]: Vial Gauger/Techni faiza ID = [id number] for Vipin Greer [id number] 06:05:22 Test Item Value Reference Range Interpretation Comments MAGNESIUM (BEAKER) (test code = 1.4 mg/dL 1.5-3.0 L 627) Vial Gauger ID - [id number] ID - [id number] ID - [id number] ID - [id number] BASIC METABOLIC [id number] 06:03:40 Test Item Value Reference Range Interpretation Comments SODIUM (BEAKER) 138 meq/L 135-148 (test code = 381) POTASSIUM 4.2 meq/L 3.6-5.5 (BEAKER) (test code = 379) CHLORIDE (BEAKER) 107 meq/L 98-106 H (test code = 382) CO2 (BEAKER) 24 meq/L 20-29 (test code = 355) BLOOD UREA 11 mg/dL 10-26 NITROGEN (BEAKER) (test code = 354) CREATININE 0.76 mg/dL 0.50-1.20 (BEAKER) (test code = 358) GLUCOSE RANDOM 71 mg/dL 70-110 (BEAKER) (test code = 652) CALCIUM (BEAKER) 9.0 mg/dL 8.5-10.5 (test code = 697) EGFR (BEAKER) 93 Interpretatio n of eGFR (test code = mL/min/1.73 values Stage De scription 1092) sq m Result G1 Bette l or high >=90 G2 Mildly decreased 60-89 G3a Mildl y to moderately 45-5 9 G3b Moderately to s everely 30-44 G4 Severl y decreased 15-29 G5 Kidney failure <15Reported eGF R is based on the CKD-EPI 202 equation that d oes not use a race coefficientEsti mated GFR is not as accur ate as Creatinine Jie barrera in predicting glom erular filtration rate . Estimated GFR is not appl icable for dialysis patien ts Vial Gauger ID - [id number] ID - [id number] ID - [id number] ID - SLUI49Rfubnyid ID - ANQG83Fqeequkm ID - NEUB58Ogcktent ID - AHMR03Syekiezr ID - XIQK87Fqdhaiit ID - [id number] 06:02:17 Test Item Value Reference Range Interpretation Comments PHOSPHORUS (BEAKER) (test code = 3.1 mg/dL 2.5-4.5 604) Vial Gauger ID - [id number] W/PLT COUNT & AUTO [id number] 05:52:02 Test Item Value Reference Range Interpretation Comments WHITE BLOOD CELL COUNT (BEAKER) 11.6 K/ L 4.0-10.0 H (test code = 775) RED BLOOD CELL COUNT (BEAKER) 2.97 M/ L 4.20-5.80 L (test code = 761) HEMOGLOBIN (BEAKER) (test code = 8.9 GM/DL 13.0-16.8 L 410) HEMATOCRIT (BEAKER) (test code = 27.4 % 36.0-50.0 L 411) MEAN CORPUSCULAR VOLUME (BEAKER) 92 fL 82-99 (test code = 753) MEAN CORPUSCULAR HEMOGLOBIN 30.0 pg 27.0-33.0 (BEAKER) (test code = 751) MEAN CORPUSCULAR HEMOGLOBIN CONC 32.5 GM/DL 32.0-36.0 (BEAKER) (test code = 752) RED CELL DISTRIBUTION WIDTH 12.7 % 12.0-15.0 (BEAKER) (test code = 412) PLATELET COUNT (BEAKER) (test 196 K/CU MM 150-430 code = 756) MEAN PLATELET VOLUME (BEAKER) 10.3 fL 6.0-11.5 (test code = 754) NUCLEATED RED BLOOD CELLS 0 /100 WBC 0-0 (BEAKER) (test code = 413) NEUTROPHILS RELATIVE PERCENT 67 % (BEAKER) (test code = 429) LYMPHOCYTES RELATIVE PERCENT 21 % (BEAKER) (test code = 430) MONOCYTES RELATIVE PERCENT 10 % (BEAKER) (test code = 431) EOSINOPHILS RELATIVE PERCENT 1 % (BEAKER) (test code = 432) BASOPHILS RELATIVE PERCENT 0 % (BEAKER) (test code = 437) NEUTROPHILS ABSOLUTE COUNT 7.78 K/ L 1.80-8.00 (BEAKER) (test code = 670) LYMPHOCYTES ABSOLUTE COUNT 2.48 K/ L 1.48-4.50 (BEAKER) (test code = 414) MONOCYTES ABSOLUTE COUNT (BEAKER) 1.13 K/ L 0.00-1.30 (test code = 415) EOSINOPHILS ABSOLUTE COUNT 0.11 K/ L 0.00-0.50 (BEAKER) (test code = 416) BASOPHILS ABSOLUTE COUNT (BEAKER) 0.05 K/ L 0.00-0.20 (test code = 417) IMMATURE GRANULOCYTES-RELATIVE 0.40 % 0.00-0.00 H PERCENT (BEAKER) (test code = 2801) POCT-GLUCOSE [id number] 20:24:20 Test Item Value Reference Range Interpretation Comments POC-GLUCOSE METER 222 mg/dL 70-110 H : TESTED A T [facility] (BEAKER) (test [facility] [address] [facility] [place] [id number]: Vial Gauger/Techni faiza ID = [id number] for Bowm an, Ramonica POCT-GLUCOSE [id number] 17:48:37 Test Item Value Reference Range Interpretation Comments POC-GLUCOSE METER 235 mg/dL 70-110 H : TESTED A T [facility] (BEAKER) (test code [address], = 1538) [place] [id number]: Vial Gauger/Techni faiza ID = [id number] for Buff ord, Corinna POCT-GLUCOSE [id number] 12:07:48 Test Item Value Reference Range Interpretation Comments POC-GLUCOSE METER 108 mg/dL 70-110 : TESTED A T [facility] (BEAKER) (test code [facility] 1538) [place] [id number]: Vial Gauger/Techni faiza ID = [id number] for Narcisa Sahue POCT-GLUCOSE [id number] 08:41:14 Test Item Value Reference Range Interpretation Comments POC-GLUCOSE METER 110 mg/dL 70-110 : TESTED A T [facility] (BEAKER) (test code [address], = 1538) [facility] 77 [address]: Vial Gauger/Techni faiza ID = [id number] for Elida santiago Corinna POCT-GLUCOSE [id number] 07:46:58 Test Item Value Reference Range Interpretation Comments POC-GLUCOSE METER 64 mg/dL 70-110 L : TESTED A T [facility] (BEAKER) (test code = [address], 15[address]) [place] [id number]: Vial Gauger/Techni faiza ID = [id number] for Elida santiago Corinna [id number] 04:56:28 Test Item Value Reference Range Interpretation Comments MAGNESIUM (BEAKER) (test code = 1.4 mg/dL 1.5-3.0 L 627) Vial Gauger ID - LITOOperator ID - LITOOperator ID - LITOOperator ID - LITOBASIC METABOLIC [id number] 03:12:48 Test Item Value Reference Range Interpretation Comments SODIUM (BEAKER) 138 meq/L 135-148 (test code = 381) POTASSIUM 4.2 meq/L 3.6-5.5 (BEAKER) (test code = 379) CHLORIDE (BEAKER) 107 meq/L 98-106 H (test code = 382) CO2 (BEAKER) 24 meq/L 20-29 (test code = 355) BLOOD UREA 14 mg/dL 10-26 NITROGEN (BEAKER) (test code = 354) CREATININE 0.77 mg/dL 0.50-1.20 (BEAKER) (test code = 358) GLUCOSE RANDOM 98 mg/dL 70-110 (BEAKER) (test code = 652) CALCIUM (BEAKER) 8.3 mg/dL 8.5-10.5 L (test code = 697) EGFR (BEAKER) 92 Interpretatio n of eGFR (test code = mL/min/1.73 values Stage De scription 1092) sq m Result G1 Bette l or high >=90 G2 Mildly decreased 60-89 G3a Mildl y to moderately 45-5 9 G3b Moderately to s everely 30-44 G4 Severl y decreased 15-29 G5 Kidney failure <15Reported eGF R is based on the CKD-EPI 2020 equation that d oes not use a race coefficientEsti mated GFR is not as accur ate as Creatinine Jie holly in predicting glom erular filtration rate . Estimated GFR is not appl icable for dialysis patien ts Vial Gauger ID - LITOOperator ID - LITOOperator ID - LITOOperator ID - LITOOperator ID - LITOOperator ID - LITOOperator ID - LITOOperator ID - LITOOperator ID - [id number] 03:11:27 Test Item Value Reference Range Interpretation Comments PHOSPHORUS (BEAKER) (test code = 3.4 mg/dL 2.5-4.5 604) Vial Gauger ID - [id number] W/PLT COUNT & AUTO [id number] 02:46:04 Test Item Value Reference Range Interpretation Comments WHITE BLOOD CELL COUNT (BEAKER) 12.1 K/ L 4.0-10.0 H (test code = 775) RED BLOOD CELL COUNT (BEAKER) 2.94 M/ L 4.20-5.80 L (test code = 761) HEMOGLOBIN (BEAKER) (test code = 8.9 GM/DL 13.0-16.8 L 410) HEMATOCRIT (BEAKER) (test code = 27.4 % 36.0-50.0 L 411) MEAN CORPUSCULAR VOLUME (BEAKER) 93 fL 82-99 (test code = 753) MEAN CORPUSCULAR HEMOGLOBIN 30.3 pg 27.0-33.0 (BEAKER) (test code = 751) MEAN CORPUSCULAR HEMOGLOBIN CONC 32.5 GM/DL 32.0-36.0 (BEAKER) (test code = 752) RED CELL DISTRIBUTION WIDTH 12.9 % 12.0-15.0 (BEAKER) (test code = 412) PLATELET COUNT (BEAKER) (test 193 K/CU MM 150-430 code = 756) MEAN PLATELET VOLUME (BEAKER) 10.0 fL 6.0-11.5 (test code = 754) NUCLEATED RED BLOOD CELLS 0 /100 WBC 0-0 (BEAKER) (test code = 413) NEUTROPHILS RELATIVE PERCENT 66 % (BEAKER) (test code = 429) LYMPHOCYTES RELATIVE PERCENT 24 % (BEAKER) (test code = 430) MONOCYTES RELATIVE PERCENT 9 % (BEAKER) (test code = 431) EOSINOPHILS RELATIVE PERCENT 1 % (BEAKER) (test code = 432) BASOPHILS RELATIVE PERCENT 0 % (BEAKER) (test code = 437) NEUTROPHILS ABSOLUTE COUNT 7.91 K/ L 1.80-8.00 (BEAKER) (test code = 670) LYMPHOCYTES ABSOLUTE COUNT 2.87 K/ L 1.48-4.50 (BEAKER) (test code = 414) MONOCYTES ABSOLUTE COUNT (BEAKER) 1.09 K/ L 0.00-1.30 (test code = 415) EOSINOPHILS ABSOLUTE COUNT 0.08 K/ L 0.00-0.50 (BEAKER) (test code = 416) BASOPHILS ABSOLUTE COUNT (BEAKER) 0.04 K/ L 0.00-0.20 (test code = 417) IMMATURE GRANULOCYTES-RELATIVE 0.70 % 0.00-0.00 H PERCENT (BEAKER) (test code = 2801) POCT-GLUCOSE [id number] 20:22:26 Test Item Value Reference Range Interpretation Comments POC-GLUCOSE METER 174 mg/dL 70-110 H : TESTED A T [facility] (BEAKER) (test code [facility] [address], = 1538) [facility] [address]: Vial Gauger/Techni faiza ID = [id number] for Kristy Brambila [id number] 19:05:43 Test Item Value Reference Range Interpretation Comments PROCALCITONIN (BEAKER) (test code 0.07 ng/mL <0.05 H = 3036) SEPSIS RISK (ng/mL)Low: 0.05-0.50Intermediate: 0.51-2.00High: >=2.01 VANCOMYCIN LEVEL, [id number] 18:59:56 Test Item Value Reference Range Interpretation Comments VANCOMYCIN RANDOM (BEAKER) (test 14.0 ug/mL code = 523) Reference Range: No NormalsOperator ID - [id number], TIBC, % SAT. (WITHOUT FERRITIN)2022-10-31 18:43:01 Test Item Value Reference Range Interpretation Comments IRON (BEAKER) (test code = 547) 23.0 ug/dL 45.0-170.0 L TOTAL IRON BINDING CAPACITY 213 ug/dL 250-550 L (BEAKER) (test code = 769) IRON % SATURATION (2) (BEAKER) 11 % 20-55 L (test code = 2590) Vial Gauger ID - [id number] ID - [id number] [id number] 18:39:42 Test Item Value Reference Range Interpretation Comments HEMOGLOBIN A1C (BEAKER) (test code = 8.0 % 4.3-6.1 H 368) Vial Gauger ID - [id number] FUNCTION [id number] 18:35:54 Test Item Value Reference Range Interpretation Comments TOTAL PROTEIN (BEAKER) (test code = 6.5 gm/dL 6.0-8.5 770) ALBUMIN (BEAKER) (test code = 1145) 3.1 g/dL 3.5-5.0 L BILIRUBIN TOTAL (BEAKER) (test code 0.4 mg/dL 0.1-1.2 = 377) BILIRUBIN DIRECT (BEAKER) (test 0.2 mg/dL 0.0-0.4 code = 706) ALKALINE PHOSPHATASE (BEAKER) (test 107 U/L 30-115 code = 346) AST (SGOT) (BEAKER) (test code = 17 U/L 5-40 353) ALT (SGPT) (BEAKER) (test code = 21 U/L 5-50 347) Vial Gauger ID - [id number] ID - [id number] ID - [id number] ID - [id number] - [id number] ID - YEOITX661Phjmarjz ID - [id number] 18:35:54 Test Item Value Reference Range Interpretation Comments MAGNESIUM (BEAKER) (test code = 1.7 mg/dL 1.5-3.0 627) Vial Gauger ID - [id number] ID - [id number] ID - [id number] ID - [id number] 18:35:54 Test Item Value Reference Range Interpretation Comments URIC ACID (BEAKER) (test code = 3.2 mg/dL 2.5-8.0 773) Vial Gauger ID - [id number] [id number] 18:35:16 Test Item Value Reference Range Interpretation Comments TRIGLYCERIDES (BEAKER) (test code = 76 mg/dL 540) CHOLESTEROL (BEAKER) (test code = 161 mg/dL 631) HDL CHOLESTEROL (BEAKER) (test code 54 mg/dL = 976) LDL CHOLESTEROL CALCULATED (BEAKER) 92 mg/dL (test code = 633) Triglyceride Reference Range: Low Risk <150 Borderline 150-199 High Risk 200- 499 Very High Risk >=500Cholesterol Reference Range: Low Risk <200 Borderline 200-239 High Risk >240HDL Cholesterol Reference Range: Low Risk >=60 High Risk <40LDL Cholesterol Reference Range: Optimal <100 Near Optimal 100-129 Borderline 130-159 High 160-189 Very High >=190 Vial Gauger ID - [id number] ID - [id number] ID - [id number] METABOLIC PANEL 2022-10-31 18:34:16 Test Item Value Reference Range Interpretation Comments SODIUM (BEAKER) 138 meq/L 135-148 (test code = 381) POTASSIUM 5.3 meq/L 3.6-5.5 (BEAKER) (test code = 379) CHLORIDE (BEAKER) 103 meq/L 98-106 (test code = 382) CO2 (BEAKER) 27 meq/L 20-29 (test code = 355) BLOOD UREA 18 mg/dL 10-26 NITROGEN (BEAKER) (test code = 354) CREATININE 0.90 mg/dL 0.50-1.20 (BEAKER) (test code = 358) GLUCOSE RANDOM 81 mg/dL 70-110 (BEAKER) (test code = 652) CALCIUM (BEAKER) 9.6 mg/dL 8.5-10.5 (test code = 697) EGFR (BEAKER) 89 Interpretatio n of eGFR (test code = mL/min/1.73 values Stage De scription 1092) sq m Result G1 Bette l or high >=90 G2 Mildly decreased 60-89 G3a Mildl y to moderately 45-5 9 G3b Moderately to s everely 30-44 G4 Severl y decreased 15-29 G5 Kidney failure <15Reported eGF R is based on the CKD-EPI 2020 equation that d oes not use a race coefficientEsti mated GFR is not as accur ate as Creatinine Jie holly in predicting glom erular filtration rate . Estimated GFR is not appl icable for dialysis patien ts Vial Gauger ID - [id number] ID - [id number] ID - [id number] ID - [id number] - [id number] ID - ZQYEQN193Tihfarcq ID - RVNZLK897Rdlggvff ID - BEXESY362Yijxgbfh ID - [id number] 18:32:12 Test Item Value Reference Range Interpretation Comments PHOSPHORUS (BEAKER) (test code = 3.8 mg/dL 2.5-4.5 604) Vial Gauger ID - [id number] W/PLT COUNT & AUTO [id number] 18:19:07 Test Item Value Reference Range Interpretation Comments WHITE BLOOD CELL COUNT (BEAKER) 14.7 K/ L 4.0-10.0 H (test code = 775) RED BLOOD CELL COUNT (BEAKER) 3.29 M/ L 4.20-5.80 L (test code = 761) HEMOGLOBIN (BEAKER) (test code = 10.0 GM/DL 13.0-16.8 L 410) HEMATOCRIT (BEAKER) (test code = 30.9 % 36.0-50.0 L 411) MEAN CORPUSCULAR VOLUME (BEAKER) 94 fL 82-99 (test code = 753) MEAN CORPUSCULAR HEMOGLOBIN 30.4 pg 27.0-33.0 (BEAKER) (test code = 751) MEAN CORPUSCULAR HEMOGLOBIN CONC 32.4 GM/DL 32.0-36.0 (BEAKER) (test code = 752) RED CELL DISTRIBUTION WIDTH 12.8 % 12.0-15.0 (BEAKER) (test code = 412) PLATELET COUNT (BEAKER) (test 216 K/CU MM 150-430 code = 756) MEAN PLATELET VOLUME (BEAKER) 9.9 fL 6.0-11.5 (test code = 754) NUCLEATED RED BLOOD CELLS 0 /100 WBC 0-0 (BEAKER) (test code = 413) NEUTROPHILS RELATIVE PERCENT 73 % (BEAKER) (test code = 429) LYMPHOCYTES RELATIVE PERCENT 15 % (BEAKER) (test code = 430) MONOCYTES RELATIVE PERCENT 11 % (BEAKER) (test code = 431) EOSINOPHILS RELATIVE PERCENT 1 % (BEAKER) (test code = 432) BASOPHILS RELATIVE PERCENT 0 % (BEAKER) (test code = 437) NEUTROPHILS ABSOLUTE COUNT 10.76 K/ L 1.80-8.00 H (BEAKER) (test code = 670) LYMPHOCYTES ABSOLUTE COUNT 2.13 K/ L 1.48-4.50 (BEAKER) (test code = 414) MONOCYTES ABSOLUTE COUNT (BEAKER) 1.54 K/ L 0.00-1.30 H (test code = 415) EOSINOPHILS ABSOLUTE COUNT 0.10 K/ L 0.00-0.50 (BEAKER) (test code = 416) BASOPHILS ABSOLUTE COUNT (BEAKER) 0.03 K/ L 0.00-0.20 (test code = 417) IMMATURE GRANULOCYTES-RELATIVE 0.70 % 0.00-0.00 H PERCENT (BEAKER) (test code = 2801) POC-Glucose [id number] 16:48:21 Test Item Value Reference Range Interpretation Comments POC-Glucose Meter (test 88 mg/dL 70-110 : TE STED AT [facility] code = 1538) [address] [facility], [facility] [address]: Vial Gauger/Techni faiza ID = [id number] for ArchiemachoingBennyahmet a Lab Interpretation (test Normal code = 96504-7) [facility] [id number] 16:48:21 Test Item Value Reference Range Interpretation Comments POC-GLUCOSE METER 88 mg/dL 70-110 : TESTED A T [facility] 1317 (BEAKER) (test code = [address], 1538) [facility] 77 478: Vial Gauger/Techni faiza ID = [id number] for Lisa Jo POC [id number] 17:14:00 Test Item Value Reference Range Interpretation Comments POC glucose (test code 242 mg/dL 65-99 H Opera tor Name: = [id number]) Jr Reeves ID : [id number] able: [facility] Notified flying instructor Interpretation Abnormal (test code = 86116-4) [facility] [id number] 17:14:00 Test Item Value Reference Range Interpretation Comments POC glucose (test code 242 mg/dL 65-99 H Opera tor Name: = 29470-4) Jr Alberto SesaratDevickeara ID : [id number] able: TM Notified flying instructor Interpretation Abnormal (test code = 58779-5) [facility] [id number] 17:14:00 Test Item Value Reference Range Interpretation Comments POC glucose (test code 242 mg/dL 65-99 H Opera tor Name: = 44661-9) Dwainisamar Alberto Kirke ID : [id number] able: TM Notified flying instructor Interpretation Abnormal (test code = 10349-9) [facility] [id number] 17:14:00 Test Item Value Reference Range Interpretation Comments POC glucose (test code 242 mg/dL 65-99 H Opera tor Name: = 37680-6) Jr Alberto JoshDe ID : [id number] able: TM Notified flying instructor Interpretation Abnormal (test code = 01048-6) [facility] DOPPLER LEGS, [id number] 16:31:00Reason for exam:->[facility]ENTER[facility]: ANAM LUCAS : 1945 Sex: MFINAL REPORT Doppler ultrasound [...] Fisher Verified Date/Time: 09/16/2022 16:31:31 Reading Location: [address] Body Reading Room RAD, SPINE, LUMBAR, COMPLETE (MIN 4 VIEWS)2022-09-16 15:20:00Reason for exam:->[facility] 1945 Sex: MFINAL REPORT Lumbar spine [...] Fisher Verified Date/Time: 09/16/2022 15:20:38 Reading Location: [address] Body Reading Room TROPONIN [id number] 14:06:13 Test Item Value Reference Range Interpretation [...] failure, acidosis, acute neurological disease, and persistent tachyarrhythmia.Vial Gauger ID - [id number] NATRIURETIC FACTOR (BNP)2022-09-16 14:04:12 Test Item Value Reference Range Interpretation Comments B-TYPE NATRIURETIC PEPTIDE (BEAKER) 70 pg/mL 0-100 (test code = 700) Vial Gauger ID - [id number] METABOLIC [id number] 13:56:31 Test Item Value Reference Range Interpretation [...] 30-44 G4 Severl y decreased 15-29 G5 Kidne y failure <15Reported eGF R is based on the CKD-EPI 2020 equation that d oes not use a race coefficientEsti mated GFR is not as accur ate as Creatinine Jie barrera in predicting glom erular filtration rate . Estimated GFR is not appl icable for dialysis patien ts Vial Gauger ID - [id number] ID - [id number] ID - [id number] ID - [id number] ID - [id number] ID - [id number] ID - [id number] ID - [id number] ID - [id number] ID - [id number] ID - [id number] ID - [id number] ID - [id number] ID - [id number] ID - [id number] ID -[id number] ID - [id number] ID - [id number] ID - [id number] w/Microscopic + Reflex to [id number] 13:49:31 Test Item Value Reference Range Interpretation Comments Color, UA (test code = Yellow 5778-6) Clarity, UA (test code = Clear 5767-9) Specific [place], UA 1.015 1.001-1.035 (test code = 5811-5) pH, UA (test code = 5.5 5.0-8.0 5803-2) Protein, UA (test code = Negative Negative 54858-1) Glucose, UA (test code = Negative Negative 365) Ketones, UA (test code = Trace Negative A 2514-8) Bilirubin, UA (test code Negative Negative = 96088-0) Blood, UA (test code = Negative Negative 03261-1) Nitrite, UA (test code = Negative Negative 5802-4) Leukocytes, UA (test Trace Negative A code = 5799-2) Urobilinogen, UA (test 0.2 code = 80799-5) Bacteria, UA (test code Few = 16991-0) RBC, UA (test code = <5 See_Comment [Autom ated message] 799-7) The system [employer] generated this result transmitted ref erence range: /HPF. Th e reference range was not used to int erpret this result as normal/abnormal . WBC, UA (test code = 5-10 See_Comment [Autom ated message] 71543-8) The system [employer] generated this result transmitted ref erence range: /HPF. Th e reference range was not used to int erpret this result as normal/abnormal . SQUAMOUS EPITHELIAL <5 See_Comment [Automa coco message] (test code = 83432-1) The sy stem which generated this result transmitted ref erence range: /HPF. Th e reference range was not used to int erpret this result as normal/abnormal . Specimen Source (test code = 2795) Lab Interpretation (test Abnormal code = 75103-1) [facility] 2022-09-16 13:49:31 Test Item Value Reference Range Interpretation Comments Color, UA (test code = Yellow 5778-6) Clarity, UA (test code = Clear 5767-9) Specific [place], UA 1.015 1.001-1.035 (test code = 5811-5) pH, UA (test code = 5.5 5.0-8.0 5803-2) Protein, UA (test code = Negative Negative 84826-7) Glucose, UA (test code = Negative Negative 365) Ketones, UA (test code = Trace Negative A 2514-8) Bilirubin, UA (test code Negative Negative = 32243-2) Blood, UA (test code = Negative Negative 05790-9) Nitrite, UA (test code = Negative Negative 5802-4) Leukocytes, UA (test Trace Negative A code = 5799-2) Urobilinogen, UA (test 0.2 code = 35579-0) Bacteria, UA (test code Few = 26436-0) RBC, UA (test code = <5 See_Comment [Autom ated message] 799-7) The system [employer] generated this result transmitted ref erence range: /HPF. Th e reference range was not used to int erpret this result as normal/abnormal . WBC, UA (test code = 5-10 See_Comment [Autom ated message] 80193-9) The system [employer] generated this result transmitted ref erence range: /HPF. Th e reference range was not used to int erpret this result as normal/abnormal . SQUAMOUS EPITHELIAL <5 See_Comment [Automa coco message] (test code = 99395-9) The sy stem which generated this result transmitted ref erence range: /HPF. Th e reference range was not used to int erpret this result as normal/abnormal . Specimen Source (test code = 2795) Lab Interpretation (test Abnormal code = 88951-1) [facility] 2022-09-16 13:49:31 Test Item Value Reference Range Interpretation Comments Color, UA (test code = Yellow 5778-6) Clarity, UA (test code = Clear 5767-9) Specific [place], UA 1.015 1.001-1.035 (test code = 5811-5) pH, UA (test code = 5.5 5.0-8.0 5803-2) Protein, UA (test code = Negative Negative 24432-4) Glucose, UA (test code = Negative Negative 365) Ketones, UA (test code = Trace Negative A 2514-8) Bilirubin, UA (test code Negative Negative = 19025-4) Blood, UA (test code = Negative Negative 12103-3) Nitrite, UA (test code = Negative Negative 5802-4) Leukocytes, UA (test Trace Negative A code = 5799-2) Urobilinogen, UA (test 0.2 code = 49059-1) Bacteria, UA (test code Few = 52021-5) RBC, UA (test code = <5 See_Comment [Autom ated message] 799-7) The system [employer] generated this result transmitted ref erence range: /HPF. Th e reference range was not used to int erpret this result as normal/abnormal . WBC, UA (test code = 5-10 See_Comment [Autom ated message] 56236-8) The system [employer] generated this result transmitted ref erence range: /HPF. Th e reference range was not used to int erpret this result as normal/abnormal . SQUAMOUS EPITHELIAL <5 See_Comment [Automa coco message] (test code = 17144-5) The sy stem which generated this result transmitted ref erence range: /HPF. Th e reference range was not used to int erpret this result as normal/abnormal . Specimen Source (test code = 2795) Lab Interpretation (test Abnormal code = 69649-2) [facility] Culture 2022-09-16 13:49:31 Test Item Value Reference Range Interpretation Comments Color, UA (test code = Yellow 5778-6) Clarity, UA (test code = Clear 5767-9) Specific [place], UA 1.015 1.001-1.035 (test code = 5811-5) pH, UA (test code = 5.5 5.0-8.0 5803-2) Protein, UA (test code = Negative Negative 72472-4) Glucose, UA (test code = Negative Negative 365) Ketones, UA (test code = Trace Negative A 2514-8) Bilirubin, UA (test code Negative Negative = 43020-2) Blood, UA (test code = Negative Negative 11510-4) Nitrite, UA (test code = Negative Negative 5802-4) Leukocytes, UA (test Trace Negative A code = 5799-2) Urobilinogen, UA (test 0.2 code = 60436-6) Bacteria, UA (test code Few = 89863-8) RBC, UA (test code = <5 See_Comment [Autom ated message] 799-7) The system [employer] generated this result transmitted ref erence range: /HPF. Th e reference range was not used to int erpret this result as normal/abnormal . WBC, UA (test code = 5-10 See_Comment [Autom ated message] 91153-0) The system [employer] generated this result transmitted ref erence range: /HPF. Th e reference range was not used to int erpret this result as normal/abnormal . SQUAMOUS EPITHELIAL <5 See_Comment [Automa coco message] (test code = 40112-7) The sy stem which generated this result transmitted ref erence range: /HPF. Th e reference range was not used to int erpret this result as normal/abnormal . Specimen Source (test code = 2795) Lab Interpretation (test Abnormal code = 87557-3) [facility]lex [facility] Culture 2022-09-16 13:49:31 Test Item Value Reference Range Interpretation Comments Color, UA (test code = Yellow 5778-6) Clarity, UA (test code = Clear 5767-9) Specific [place], UA 1.015 1.001-1.035 (test code = 5811-5) pH, UA (test code = 5.5 5.0-8.0 5803-2) Protein, UA (test code = Negative Negative 94753-4) Glucose, UA (test code = Negative Negative 365) Ketones, UA (test code = Trace Negative A 2514-8) Bilirubin, UA (test code Negative Negative = 47175-5) Blood, UA (test code = Negative Negative 64582-9) Nitrite, UA (test code = Negative Negative 5802-4) Leukocytes, UA (test Trace Negative A code = 5799-2) Urobilinogen, UA (test 0.2 code = 00919-3) Bacteria, UA (test code Few = 46647-4) RBC, UA (test code = <5 See_Comment [Autom ated message] 799-7) The system [employer] generated this result transmitted ref erence range: /HPF. Th e reference range was not used to int erpret this result as normal/abnormal . WBC, UA (test code = 5-10 See_Comment [Autom ated message] 81710-3) The system [employer] generated this result transmitted ref erence range: /HPF. Th e reference range was not used to int erpret this result as normal/abnormal . SQUAMOUS EPITHELIAL <5 See_Comment [Automa coco message] (test code = 50750-3) The sy stem which generated this result transmitted ref erence range: /HPF. Th e reference range was not used to int erpret this result as normal/abnormal . Specimen Source (test code = 2795) Lab Interpretation (test Abnormal code = 25580-3) [facility] [id number] 13:49:31 Test Item Value Reference Range Interpretation [...] code = 1663) SOURCE(BEAKER) (test code = 2795) CBC W/PLT COUNT & AUTO [id number] 13:42:04 Test Item Value Reference Range Interpretation [...] PERCENT (BEAKER) (test code = 2801) Glucose [id number] 09:20:00 Test Item Value Reference Range Interpretation Comments Glucose Fingerstick 123 mg/dL 70-115 ASSISTANT TO THE VICE PRESIDENT Narcisa Spangler (test code = WGLUC) Notes Date/Time Note Provider Source 2022-11-06 20:46:39-00:00 LAURE MEJIA [facility] OPERATIVE/PROCEDURE REPORT ANAM LUCAS FACILITY: [facility] Billing #: [id number] Room: [address] [place] [address] MR #: [id number] : 1945 DATE OF PROCEDURE: 11/06/2022 SURGEON: Laure Mejia MD PREOPERATIVE DIAGNOSIS: Peripheral vascular dise ase with right heel ulcer. POSTOPERATIVE DIAGNOSIS: Peripheral vascular dis ease with right heel ulcer. PROCEDURES PERFORMED: Aortogram with right lower extremity runoff, atherectomy of the right TP trunk and pe roneal artery, TRUCK SWITCHER of the right TP trunk and peroneal artery. INDICATIONS: Mr. Anam Lucas is a 77-year-ol d male history of multiple medical problems including severe pe ripheral vascular disease. He has a nonhealing wound on t he right heel. Our plan is to proceed with an arteriogram. He was explained all the risks and benefits of the procedure. He asked us to proceed. PROCEDURE IN DETAIL: The patient was taken to [facility] lab, placed supine position. After induction of conscious se dation anesthesia, the patient was prepped and draped i n the appropriate surgical fashion. Ultrasound was use d to visualize left common femoral artery. Lidocaine 1% was inf iltrated into subcutaneous tissues. Mini-Stick needle and Mini -Stick sheath were placed. Mini-Stick sheath was then upsized over a Bentson wire to a 6-Swazi sheath. A Contra catheter was then reformed in the infrarenal aorta. Contrast injection was performed, which demonstrated normal aorta. The ultrasound was used to visualize left common femoral artery. Mini-Stick needle and Mini-Stick sheath were placed. Mini-Stick sheath was then upsized over a Bentson wire to a 6-Swazi sheath . A Contra catheter was then reformed in the infrarenal aor ta. Contrast injection was performed, which demonstrated norm al aorta, normal bilateral common iliac arteries, external iliac arteries, hypogastric arteries, and common femor al arteries. We then used a Contra catheter stiff angled Glid ewire to go up and over the bifurcation, positioned the cathete r in right common femoral artery, shot a runoff injection i n the right leg, demonstrated normal right common femoral. T he anterior tibial artery was occluded. The TP trunk was pat ent. The TP trunk peroneal artery had a stenosis. The performance improvement analyst ior tibial artery was occluded. We decided to go ahead and revascularize. We bolused the patient with 5000 units of hepar in, began checking ACTs every 2 minutes to maintain ACT ab ove 250 with incremental bolus of heparin as needed. Passed s tiff angled Glidewire down the SFA, removed the Contra mahamed ter, removed the 6-Swazi sheath, placed a 6-Swazi Destinati on sheath in the right common femoral artery using Glidewire glide catheter to gain access into the peroneal artery, passed a ViperWire down, brought down a 1.25 diamondback orbital at herectomy catheter, which we used to perform orbital ather ectomy of the TP trunk, peroneal artery junction. We then went ahead and angioplastied that using a 3 mm balloon. We then shot a completion arteriogram, which demonstrated impro griselda flow. All catheters and guidewire sheaths were then withdrawn. A ProGlide device was used to close t he arteriotomy. The patient tolerated the procedure well, taken to recovery room in stable condition. ITM/MODL /[id number] Electronically signed by: LAURE MEJIA at 20 07-11-21 16:41:10.000 2022-11-01 12:26:35-00:00 LAURE MEJIA [facility] OPERATIVE/PROCEDURE REPORT ANAM LUCAS FACILITY: [facility] Billing #: [id number] Room: [address] [place] [address] MR #: [id number] : 1945 DATE OF PROCEDURE: 11/01/2022 SURGEON: Laure Mejia MD PREOPERATIVE DIAGNOSIS: Severe peripheral vascul ar disease. POSTOPERATIVE DIAGNOSIS: Severe peripheral vascu lar disease. PROCEDURES: Aortogram with bilateral lower extre mity runoff, atherectomy of the left posterior tibial artery, TRUCK SWITCHER of left posterior tibial artery. ANESTHESIA: Conscious sedation. ESTIMATED BLOOD LOSS: Minimal. COMPLICATIONS: None. INDICATIONS FOR THE PROCEDURE: Mr. Anam beckwith is a 77-year-old male with history of diabetes, hyper tension, hypercholesterolemia, who presents with nonheali ng bilateral heel ulcers. He has had this for quite some time . He developed these heel ulcers which were decubitus ulcers during recent hospital stay. He has had the left side d ebrided. Unfortunately, he has not been able to heal. Wor kup has shown that he has arterial disease. He was explained a ll the risks and benefits of the procedure. He asked us to pr oceed. PROCEDURE IN DETAIL: The patient was taken to [facility] lab, placed supine in position. After induction of conscious sedation anesthesia, patient was prepped and draped in ap propriate surgical fashion. Ultrasound was used to visuali ze the right common femoral artery. Mini-Stick needle, Mini-S tick sheath were placed. Mini-Stick sheath was then upsized over a stiff angled Glidewire 6-Swazi sheath. A Contra mahamed ter was then reformed in the infrarenal aorta. Contrast injec tion was performed, which demonstrated normal aorta, norm al bilateral common iliac arteries, external iliac arteries, hypogastric arteries, and common femoral arteries. We then u sed a Contra catheter stiff angled Glidewire to go up and ove r the aortic bifurcation. Positioned the catheter in the left common femoral artery, shot a runoff injection of the l eft leg demonstrated normal left common femoral, profund a, SFA. There was a high takeoff of the AT which immediately o ccluded. Reconstitution was seen in the dorsalis pedis ar ramirez. The TP trunk was patent. Peroneal artery was occluded. No reconstitution seen. The posterior tibial artery was occluded, which had severe stenosis in the distal third, w hich eventually opened back up. We decided to go and treat these , bolused patient with 5000 units of heparin, began checki ng ACTs every 20 minutes to maintain ACT above 250 with increm ental bolus of heparin needed. I passed stiff angled Glidewire down the left SFA, removed the Contra catheter, removed the 6- Swazi sheath, placed a 6-Swazi destination sheath in the left common femoral artery. Then using Glidewire glide catheter gain ed access to the posterior tibial artery. We then wired up le carlyle with a Viper wire, removed the [place] catheter, brought down a 1.25 Diamondback orbital atherectomy catheter, which we used to perform orbital atherectomy of the posterior tib ial artery lesion. We then postdilated with a 3 mm balloon. We then shot a completion arteriogram, demonstrated improved flow. We then accessed the anterior tibial artery using Glidew pau glide catheter where we were able to eventually cross and gain access to the dorsalis pedis artery. We then angioplast ied using a 3 mm balloon, shot a completion arteriogram, demon strated improved flow. All catheters, guidewire sheaths were then withdrawn. A runoff injection of the right leg w as performed, demonstrated normal right common femoral, SFA an d profunda. There was infrapopliteal arterial disease, we co uld not visualize it very clearly with this approach. Al l catheters and guidewire sheath were withdrawn. A ProGlide device used to close the arteriotomy. The patient tolerated the procedure well, was taken to recovery room in stable condi tion. ITM/MODL /[id number] Electronically signed by: LAURE MEJIA at 20 07-11-16 11:12:16.000 2022-10-31 18:07:28-00:00 LAURE MEJIA [facility] CONSULTATION ANAM LUCAS FACILITY: [facility] Billing #: [id number] Room: [address] [place] [address] MR #: [id number] : 1945 DATE OF ADMISSION: 10/31/2022 DATE OF CONSULTATION: 10/31/2022 REQUESTING PHYSICIAN: TRANSITION NURSE: Laure Mejia MD REASON FOR CONSULTATION: Nonhealing decubitus ul cers both legs, left greater than right. HISTORY OF PRESENT ILLNESS: Mr. Anam Lucas is a 77-year-old male transferred from an outside [place] [facility] today because of nonhealing wounds in both lower extre mities. He developed these decubitus ulcers during recent h ospital stay. He has a baseline history of diabetes, hypertens ion, and hypercholesterolemia. The ulcer appears to be gr eater on the left than on the right. [facility] issue where he is having pain all over. He was started on steroids and was immobile for a f ew days and that is when he developed this decubitus ulcer. He is now movable, alert, oriented, but he has had these u lcers. These have also been recently debrided and the debride ments have not healed REVIEW OF SYSTEMS: No chest pain, shortness of breath, back pain, a bdominal pain, nausea, or vomiting. All other review of systems are negative. PAST MEDICAL HISTORY: Significant for diabetes, hypertension, hypercholesterolemia, and peripheral vascular di sease. PAST SURGICAL HISTORY: Significant for recent de bridement of left foot, left heel ulcer. MEDICATIONS: Please see attached medication med rd. ALLERGIES: NO KNOWN DRUG ALLERGIES. PHYSICAL EXAMINATION: VITAL SIGNS: The patient is afebrile. Vital sign s stable. HEAD AND NECK: Pupils equal, round, reactive to light accommodation. Extraocular movements intact. CARDIOVASCULAR: Regular rate and rhythm. PULMONARY: Clear to auscultation. ABDOMEN: Soft, nondistended, nontender. EXTREMITIES: Bilateral heel ulcers, nonpalpable pedal pulses. IMAGING DATA: Arterial Doppler was done, which d emonstrates significant infrapopliteal arterial disease. IMPRESSION: Severe peripheral vascular disease. PLAN: For left lower extremity arteriogram. ITM/MODL /[id number] .000
[2022-12-25 07:46] LABS: Absolute Lymphocytes (CBC) 2.7 K/uL (0.7-4.9); Hematocrit 26.7 % (39.6-49.0); Lymphocytes % 30.7 % (15.3-44.8); MCV 87.5 fL (80-100); RBC Red Blood Cell Count 3.05 M/uL (4.33-5.43)
[2022-12-25] MEDS ORDERED: NA CHLORIDE 0.9% 500 ML ONE (07:47)
[2022-12-25 07:57] LABS: Potassium 3.9 mEq/L (3.5-5.1)
--- NOTE | 2022-12-25 09:09 | RAD REPORT ---
EXAM DESCRIPTION: RAD - Pelvis - 12/25/2022 8:37 am CLINICAL HISTORY: BLUNT TRAUMA COMPARISON: Spine Lumbar W/Cont dated 10/14/2022 TECHNIQUE: Single AP view of the pelvis. FINDINGS: The visualized pelvic ring is intact. No suspicious osseous lesions. Bilateral mild degene rative changes of the hip joints. Other pelvic joints are unremarkable. Visualized aspects of the abd omen and soft tissues are unremarkable. IMPRESSION: No acute osseous abnormality of the bony pelvis. Bilateral mild hip joint degenerative changes.
--- NOTE | 2022-12-25 09:11 | RAD REPORT ---
EXAM DESCRIPTION: RAD - Femur Left - 12/25/2022 8:37 am CLINICAL HISTORY: PAIN COMPARISON: No comparisons TECHNIQUE: Left femur, 2 views. FINDINGS: No fracture is identified. At least moderate degenerative changes of the knee joint, with joint space narrowing and osseous remodeling most pronounced along the in patellofemoral compartment . Mineralization along the lateral meniscus could relate to the positional arthropathy. Small ossifie d foci along the lateral distal thigh soft tissues, nonspecific. There is no dislocation or periostea l reaction noted. No acute or suspicious bony finding. IMPRESSION: No acute osseus abnormality. Chronic findings as above.
--- NOTE | 2022-12-25 09:12 | RAD REPORT ---
EXAM DESCRIPTION: RAD - Femur Right - 12/25/2022 8:37 am CLINICAL HISTORY: PAIN COMPARISON: No comparisons TECHNIQUE: Right femur, 2 views. FINDINGS: No fracture is identified. At least moderate degenerative changes of the knee joint. Hendricks alization along the lateral meniscus which may relate to the positional arthropathy such as CPPD. Non specific linear mineralization in the suprapatellar soft tissues space. There is no dislocation or pe riosteal reaction noted. No acute or suspicious bony finding. IMPRESSION: No acute osseous abnormality. Additional findings as above.
[2022-12-25 10:58] LABS: Specific Gravity 1.009 (1.005-1.030); Urine Bilirubin NEGATIVE (Negative); Urine Blood Negative (Negative); Urine Clarity Clear (Clear); Urine Color Colorless (Yellow); Urine Glucose NEGATIVE (Negative); Urine Protein NEGATIVE (Negative); Urine Urobilinogen Normal (Normal)
--- NOTE | 2022-12-25 11:02 | ER ---
Nurse's Notes [facility] Name: Anam Lucas Age: 77 yrs Sex: Male : 1945 Arrival Date: 12/25/2022 Time: 06:58 Bed 17 Private MD: Diagnosis: Contusion of lower back and pelvis;Muscle weakness (generalized);Dehydration Presentation: 12/25 07:03 Chief complaint: EMS states: His daughter checked in on him from a camera and saw him vc1 on the ground. He had been on the ground for about an hour. He is complaining for bilateral hip pain. Coronavirus screen:. Coronavirus screen: Client denies travel out of the [place] in the last 14 days. At this time, the client does not indicate any symptoms associated with coronavirus-19. Ebola Screen: Patient negative for fever greater than or equal to 101.5 degrees Fahrenheit, and additional compatible Ebola Virus Disease symptoms. Initial Sepsis Screen: Does the patient meet any 2 criteria? No. Patient's initial sepsis screen is negative. Does the patient have a suspected source of infection? No. Patient's initial sepsis screen is negative. Risk Assessment: Do you want to hurt yourself or someone else? Patient reports no desire to harm self or others. Onset of symptoms was December 25, 2022. 07:03 Method Of Arrival: EMS: [facility] vc1 07:03 Acuity: AKBAR 4 vc1 07:06 Chief complaint: EMS states: FALL AT HOME 2/2 WEAKNESS TO SEATED POSITION, EXACERBATED bp CHRONIC BLE PAIN. Coronavirus screen: At this time, the client does not indicate any symptoms associated with coronavirus-19. Ebola Screen: No symptoms or risks identified at this time. Initial Sepsis Screen: Does the patient meet any 2 criteria? No. Patient's initial sepsis screen is negative. Does the patient have a suspected source of infection? No. Patient's initial sepsis screen is negative. Risk Assessment: Do you want to hurt yourself or someone else? Patient reports no desire to harm self or others. Onset of symptoms is unknown. 07:06 Method Of Arrival: EMS: [facility] bp 07:06 Acuity: AKBAR 3 bp Triage Assessment: 07:07 General: Appears in no apparent distress. Behavior is calm, cooperative, appropriate bp for age. Pain: Complains of pain in right leg and left leg Pain began CHRONIC. EENT: No deficits noted. Neuro: No deficits noted. Cardiovascular: No deficits noted. Respiratory: No deficits noted. GI: No signs and/or symptoms were reported involving the gastrointestinal system. : No signs and/or symptoms were reported regarding the genitourinary system. Derm: No deficits noted. Musculoskeletal: No deficits noted. Historical: - Allergies: 07:09 No Known Allergies; vc1 07:07 No Known Allergies; bp - Home Meds: 07:07 gabapentin 300 mg Oral capsule 3 times per day [Active]; glipizide 5 mg Oral tablet 2 bp times per day [Active]; levothyroxine 100 mcg tablet daily [Active]; Tradjenta 5 mg Oral tablet daily [Active]; tramadol 50 mg Oral tablet every 6 hours [Active]; tamsulosin 0.4 mg Oral capsule twice a day [Active]; methocarbamol 500 mg Oral tablet every 6 hours [Active]; metformin 1,000 mg Oral tablet 2 times per day [Active]; lisinopril 20 mg Oral tablet daily [Active]; - PMHx: 07:09 Hypothyroidism; Diabetes mellitus; Hypertensive disorder; vc1 07:07 Hypertensive disorder; Diabetes mellitus; Chronic pain; bp - PSHx: 07:09 debridement of bilateral feet; vc1 - Immunization history:: Adult Immunizations up to date. - Social history:: Smoking status: Patient denies any tobacco usage or history of. - Family history:: not pertinent. - Hospitalizations: : No recent hospitalization is reported. Screenin:07 [facility] ED Fall Risk Assessment (Adult) History of falling in the last 3 months, bp including since admission No falls in past 3 months (0 pts). Abuse screen: Denies threats or abuse. Denies injuries from another. Nutritional screening: No deficits noted. Tuberculosis screening: No symptoms or risk factors identified. Assessment: 07:07 General: SEE TRIAGE NOTE. bp 08:41 Reassessment: Patient appears in no apparent distress at this time. Patient is alert, bp oriented x 3, equal unlabored respirations, skin warm/dry/pink. 09:00 Reassessment: Patient appears in no apparent distress at this time. Patient and/or eh3 family updated on plan of care and expected duration. Pain level reassessed. Patient is alert, oriented x 3, equal unlabored respirations, skin warm/dry/pink. 10:00 Reassessment: Patient appears in no apparent distress at this time. Patient and/or eh3 family updated on plan of care and expected duration. Pain level reassessed. Patient is alert, oriented x 3, equal unlabored respirations, skin warm/dry/pink. 11:00 Reassessment: Patient appears in no apparent distress at this time. Patient and/or eh3 family updated on plan of care and expected duration. Pain level reassessed. Patient is alert, oriented x 3, equal unlabored respirations, skin warm/dry/pink. Vital Signs: 07:03 BP 115 / 78; Pulse 76; Resp 17; Temp 97.8; Pulse Ox 100% ; vc1 08:40 BP 146 / 74; Pulse 74; Resp 16; Pulse Ox 99% ; bp 09:00 BP 149 / 73; Pulse 75; Resp 16; Pulse Ox 98% on R/A; eh3 10:00 BP 139 / 85; Pulse 78; Resp 16; Pulse Ox 100% on R/A; eh3 11:00 BP 164 / 76; Pulse 76; Resp 16; Pulse Ox 98% on R/A; eh3 ED Course: 07:01 Patient arrived in ED. rv1 07:01 Johny Duarte MD is Attending Physician. rn 07:05 Carlos Camara, MAGDA is Primary Nurse. bp 07:07 Triage completed. bp 07:07 Patient has correct armband on for positive identification. Bed in low position. Call bp light in reach. Side rails up X2. 07:11 Arm band placed on right wrist. vc1 07:28 Inserted saline lock: 22 gauge in right forearm, using aseptic technique. Blood bp collected. 08:39 XRAY Pelvis In Process Unspecified. EDMS 08:39 XRAY Femur RIGHT In Process Unspecified. EDMS 08:39 XRAY Femur LEFT In Process Unspecified. EDMS 11:46 No provider procedures requiring assistance completed. IV discontinued, intact, eh3 bleeding controlled, No redness/swelling at site. Pressure dressing applied. Administered Medications: 07:45 Drug: NS 0.9% IV 500 ml Route: IV; Rate: bolus; Site: right forearm; bp 10:00 Follow up: IV Status: Completed infusion; IV Intake: 500ml 3 Medication: 07:07 VIS not applicable for this client. bp Intake: 10:00 IV: 500ml; Total: 500ml. 3 Outcome: 11:02 Discharge ordered by . rn 11:57 Discharged to home via wheelchair, with family. [facility] 11:57 Condition: stable 11:57 Discharge instructions given to patient, family, Instructed on discharge instructions, follow up and referral plans. Demonstrated understanding of instructions, follow-up care. 12:01 Patient left the ED. 3 Signatures: Dispatcher [employer] EDMS Johny Duarte MD MD rn Peltier, Brian, RN RN Christina Saleem RN RN vc1 Lee Ann Schultz RN RN 3 Merna Patel [facility]
--- NOTE | 2022-12-25 11:03 | EDPHYS ---
Physician Documentation [facility] Name: Anam Lucas Age: 77 yrs Sex: Male : 1945 Arrival Date: 12/25/2022 Time: 06:58 Bed 17 Private MD: ED Physician Johny Duarte HPI: 12/25 08:19 This 77 yrs old Male presents to ER via EMS with complaints of Fall Injury. rn 08:19 Details of fall: The patient fell from an upright position. Onset: The symptoms/episode rn began/occurred 1 hour(s) ago. Associated injuries: The patient sustained no obvious injury. Severity of symptoms: At their worst the symptoms were mild, in the emergency department the symptoms have improved. It is unknown whether or not the patient has had similar symptoms in the past. The patient has not recently seen a physician. Pt reports trying to reach for his phone, overreached, fell onto buttocks, slid down more than direct fall. Denies pain from injury, but has chronic arthritis and chronic leg pain. Pt reports feels like didn't break anything from fall, but had difficulty getting up on his own so called 911. Currently being treated for wounds with abx. Denies chest pain/sob/abd pain/vomiting/diarrhea. . Historical: - Allergies: 07:09 No Known Allergies; vc1 07:07 No Known Allergies; bp - Home Meds: 07:07 gabapentin 300 mg Oral capsule 3 times per day [Active]; glipizide 5 mg Oral tablet 2 bp times per day [Active]; levothyroxine 100 mcg tablet daily [Active]; Tradjenta 5 mg Oral tablet daily [Active]; tramadol 50 mg Oral tablet every 6 hours [Active]; tamsulosin 0.4 mg Oral capsule twice a day [Active]; methocarbamol 500 mg Oral tablet every 6 hours [Active]; metformin 1,000 mg Oral tablet 2 times per day [Active]; lisinopril 20 mg Oral tablet daily [Active]; - PMHx: 07:09 Hypothyroidism; Diabetes mellitus; Hypertensive disorder; vc1 07:07 Hypertensive disorder; Diabetes mellitus; Chronic pain; bp - PSHx: 07:09 debridement of bilateral feet; vc1 - Immunization history:: Adult Immunizations up to date. - Social history:: Smoking status: Patient denies any tobacco usage or history of. - Family history:: not pertinent. - Hospitalizations: : No recent hospitalization is reported. ROS: 08:19 Constitutional: Negative for fever, chills, and weight loss, Eyes: Negative for injury, rn pain, redness, and discharge, Neck: Negative for injury, pain, and swelling, Cardiovascular: Negative for chest pain, palpitations, and edema, Respiratory: Negative for shortness of breath, cough, wheezing, and pleuritic chest pain, Abdomen/GI: Negative for abdominal pain, nausea, vomiting, diarrhea, and constipation, Back: Negative for injury and pain, MS/Extremity: Negative for injury and deformity, Skin: Negative for injury Neuro: Negative for headache, and seizure Exam: 08:19 Constitutional: This is a well developed, well nourished patient who is awake, alert, rn and in no acute distress. Head/Face: Normocephalic, atraumatic. ENT: dry MM, no oral injury Neck: No midline cervical tenderness Chest/axilla: No chest wall tenderness, no crepitus Cardiovascular: Regular rate and rhythm. No pulse deficits. Respiratory: No increased work of breathing, no retractions or nasal flaring. Abdomen/GI: soft, non-tender MS/ Extremity: Pulses equal, no cyanosis. Neurovascular intact. Mild pain with ROM of bilateral hips/knees without contusion or open wounds. Bilateral feet in boots and wrapped. Neuro: Awake and alert, GCS 15, oriented to person, place, time. Cranial nerves II-XII grossly intact. Motor strength 4/5 in all extremities. Sensory grossly intact. Vital Signs: 07:03 BP 115 / 78; Pulse 76; Resp 17; Temp 97.8; Pulse Ox 100% ; vc1 08:40 BP 146 / 74; Pulse 74; Resp 16; Pulse Ox 99% ; bp 09:00 BP 149 / 73; Pulse 75; Resp 16; Pulse Ox 98% on R/A; eh3 10:00 BP 139 / 85; Pulse 78; Resp 16; Pulse Ox 100% on R/A; eh3 11:00 BP 164 / 76; Pulse 76; Resp 16; Pulse Ox 98% on R/A; eh3 MDM: 07:01 Patient medically screened. rn 11:01 Differential diagnosis: contusion, fracture, sprain, strain, dehydration, UTI, rn weakness. Data reviewed: vital signs, nurses notes, lab test result(s), radiologic studies, plain films, and as a result, I will discharge patient. Counseling: I had a detailed discussion with the patient and/or guardian regarding: the historical points, exam findings, and any diagnostic results supporting the discharge/admit diagnosis, lab results, radiology results, the need for outpatient follow up, to return to the emergency department if symptoms worsen or persist or if there are any questions or concerns that arise at home. Response to treatment: the patient's symptoms have mildly improved after treatment, and as a result, I will discharge patient. Special discussion: I discussed with the patient/guardian in detail that at this point there is no indication for admission to the hospital. It is understood, however, that if the symptoms persist or worsen the patient needs to return immediately for re-evaluation. 12/25 07:15 Order name: CBC with Diff; Complete Time: 08:18 rn 12/25 07:15 Order name: Basic Metabolic Panel; Complete Time: 08:18 rn 12/25 07:15 Order name: Urinalysis w/ reflexes; Complete Time: 11:01 rn 12/25 07:15 Order name: XRAY Pelvis; Complete Time: 09: rn 12/25 07:15 Order name: XRAY Femur RIGHT; Complete Time: : rn 12/25 07:15 Order name: XRAY Femur LEFT; Complete Time: : rn 12/25 07:15 Order name: IV Start; Complete Time: 07:36 rn Administered Medications: 07:45 Drug: NS 0.9% IV 500 ml Route: IV; Rate: bolus; Site: right forearm; bp 10:00 Follow up: IV Status: Completed infusion; IV Intake: 500ml eh3 Disposition Summary: 12/25/22 11:02 Discharge Ordered Location: Home rn Problem: new rn Symptoms: have improved rn Condition: Stable rn Diagnosis - Contusion of lower back and pelvis rn - Muscle weakness (generalized) rn - Dehydration rn Followup: rn - With: Private Physician - When: As needed - Reason: Recheck today's complaints, Re-evaluation by your physician Discharge Instructions: - Discharge Summary Sheet rn - Contusion rn - Dehydration, Adult rn - Weakness rn Forms: - Medication Reconciliation Form rn - Thank You Letter rn - Antibiotic rn hedis - Prescription Opioid Use rn - [email or web address] rn Signatures: Dispatcher [employer] Johny Xavier MD MD rn Peltier, Brian, RN RN hCristina Saleem RN RN vc1 Lee Ann Schultz RN eh3
[2022-12-25 12:50] VITALS: TEMP 97.8
[2022-12-25 12:55] VITALS: BP 164/76; O2SAT 98
== END 2022-12-25 12:01 | disposition home or self-care (01) ==
LOC: ER 06:58
DX: S30.0XXA Contusion of lower back and pelvis, initial encounter (principal); M62.81 Muscle weakness (generalized); E86.0 Dehydration; E11.9 Type 2 diabetes mellitus without complications; I10 Essential (primary) hypertension
CPT/HCPCS: 96361; 85025; 80048; 36415; 81003; 72170; 73552 ×2; 96360; 99284; J7040